=== PATIENT | male | born 1955 | race Caucasian/White ===

== ENCOUNTER → 2020-08-27 06:54 | Outpatient (CLI) | payer MEDICARE, BC, SELFPAY ==
[2016-09-07 18:25] VITALS: BMI 40.7
[2020-08-27 07:55] LABS: Absolute Lymphocyte Count 1.19 X10^3/uL (0.83-4.51); Absolute Neutrophil Count 4.3 X10^3/uL (2.0-7.7); Basophil# 0.03 X10^3/uL; Basophil% 0.5 % (0-1); Eosinophil# 0.03 X10^3/uL; Eosinophils% 0.5 % (0-5); Hematocrit 44.3 % (40-54); Hemoglobin 13.6 g/dL (13.0-16.5); Lymphocyte # 1.19 X10^3/ul (0.83-4.51); Lymphocyte % 20.1 % (19-41); Mean Corp Hgb Conc 30.7 g/dL (32-36); Mean Corpuscular Hgb 25.5 pg (27.0-32.0); Mean Platelet Vol. 11.1 fl (6.2-12.0); Monocyte# 0.35 X10^3/uL; Monocyte% 5.9 % (0-10); NRBC Flagged by Analyzer 0 % (0-5); Neutrophil % 72.7 % (47-70); Platelet Count 171 K/mm3 (150-450); RBC Distribution Width CV 12.8 % (11.6-14.6); RBC Distribution Width SD 38.5 fl (35.1-43.9); Red Blood Count 5.34 M/mm3 (4.6-6.2); White Blood Count 5.9 K/mm3 (4.4-11.0)
[2020-08-27 08:26] LABS: ALB/GLOB Ratio 1.2 RATIO (0.9-2.4); AST(SGOT) 9 U/L (15-37); Alanine Aminotransfer ALT/SGPT 16 U/L (16-61); Albumin, Serum 3.9 g/dL (3.2-5.0); Alkaline Phosphatase 77 U/L (45-117); Anion Gap 7 (5-15); BUN 17 mg/dL (7-18); BUN/Creat Ratio 16.5 RATIO (10-20); Chloride 105 mmol/L (98-107); Cholesterol 110 mg/dL (200); Creatinine, Serum 1.03 mg/dL (0.70-1.30); EST Glomerular Filtration Rate 76 mL/min (>60); Est Glom Filt Rate - Afr Amer 93 mL/min (>60); Globulin 3.2 g/dL (2.2-4.2); Glucose 122 mg/dL (74-106); High Density Lipoprotein 56 mg/dL; Potassium 3.9 mmol/L (3.5-5.1); Protein, Total 7.1 g/dL (6.4-8.2); Sodium Level 141 mmol/L (136-145); Thyroid Stim Hormone (TSH) 1.92 uIU/mL (0.358-3.74); Triglycerides 84 mg/dL; Very Low Density Lipoprotein 17 mg/dL (5-40)
[2020-08-27 08:30] LABS: Hemoglobin A1c 5.4 % (3.8-5.6)
[2020-08-27 08:34] LABS: Vitamin B12 717 pg/mL (211-911)
[2020-08-27 09:27] LABS: Microalbumin,Random Urine 9.8 mg/L (NO RANGE EST.); Microalbumin:Creatinine Ratio 6.5 mg/g CRE (<30 mg/g CRE)
== END ==
PROVIDERS: PCP Family Medicine; Referring Provider Family Medicine; Visit Provider Family Medicine
DX: E11.9 Type 2 diabetes mellitus without complications (principal); E78.5 Hyperlipidemia, unspecified; I10 Essential (primary) hypertension; D51.8 Other vitamin B12 deficiency anemias; Z12.5 Encounter for screening for malignant neoplasm of prostate; Z51.81 Encounter for therapeutic drug level monitoring
CPT/HCPCS: 36415; 80053; 80061; 82043; 82570; 82607; 83036; 84153; 84443; 85025; G0103

== ENCOUNTER → 2022-08-12 | Outpatient (CLI) | payer MEDICARE, BC, SELFPAY ==
[2022-08-12 13:01] LABS: Absolute Lymphocyte Count 1.17 X10^3/uL (0.83-4.51); Absolute Neutrophil Count 5.2 X10^3/uL (2.0-7.7); Basophil# 0.02 X10^3/uL; Basophil% 0.3 % (0-1); Eosinophil# 0.03 X10^3/uL; Eosinophils% 0.4 % (0-5); Hematocrit 44.9 % (40-54); Hemoglobin 14.9 g/dL (13.0-16.5); Lymphocyte # 1.17 X10^3/ul (0.83-4.51); Lymphocyte % 17.2 % (19-41); Mean Corp Hgb Conc 33.2 g/dL (32-36); Mean Corpuscular Hgb 28.7 pg (27.0-32.0); Mean Corpuscular Volume 86.3 fL (80-94); Mean Platelet Vol. 12.1 fl (6.2-12.0); Monocyte% 5.9 % (0-10); NRBC Flagged by Analyzer 0 % (0-5); Neutrophil # 5.16 X10^3/uL (2.7-7.7); Neutrophil % 75.8 % (47-70); Platelet Count 158 K/mm3 (150-450); RBC Distribution Width CV 12.8 % (11.6-14.6); RBC Distribution Width SD 39.8 fl (35.1-43.9); White Blood Count 6.8 K/mm3 (4.4-11.0)
[2022-08-12 13:33] LABS: ALB/GLOB Ratio 1.1 RATIO (0.9-2.4); AST(SGOT) 14 U/L (15-37); Alanine Aminotransfer ALT/SGPT 27 U/L (16-61); Alkaline Phosphatase 89 U/L (45-117); Anion Gap 5 (5-15); BUN 17 mg/dL (7-18); BUN/Creat Ratio 17.1 RATIO (10-20); Chloride 105 mmol/L (98-107); Cholesterol 104 mg/dL (200); EST Glomerular Filtration Rate 79 mL/min (>60); Est Glom Filt Rate - Afr Amer 96 mL/min (>60); Globulin 3.6 g/dL (2.2-4.2); Glucose 136 mg/dL (74-106); High Density Lipoprotein 44 mg/dL; Iron 72 ug/dL (65-175); PSA,Total - Annual Screen 5.16 ng/mL (0.00-4.00); Potassium 3.6 mmol/L (3.5-5.1); Protein, Total 7.6 g/dL (6.4-8.2); Sodium Level 137 mmol/L (136-145); Triglycerides 123 mg/dL; Very Low Density Lipoprotein 25 mg/dL (5-40)
[2022-08-12 13:34] LABS: Vitamin B12 936 pg/mL (211-911)
[2022-08-12 13:39] LABS: Hemoglobin A1c 6.3 % (3.8-5.6)
[2022-08-12 14:06] LABS: Microalbumin,Random Urine 7.6 mg/L (NO RANGE EST.); Microalbumin:Creatinine Ratio 7.1 mg/g CRE (<30 mg/g CRE)
== END | disposition home or self-care (01) ==
LOC: BFHLAB 08:59
PROVIDERS: PCP Family Medicine; Referring Provider Family Medicine; Visit Provider Family Medicine
DX: E11.9 Type 2 diabetes mellitus without complications (principal); E78.5 Hyperlipidemia, unspecified; Z12.5 Encounter for screening for malignant neoplasm of prostate; D50.9 Iron deficiency anemia, unspecified; E53.8 Deficiency of other specified B group vitamins
CPT/HCPCS: 36415; 80053; 80061; 82043; 82570; 82607; 83036; 83540; 84153; 85025; G0103

== ENCOUNTER → 2023-02-16 | Outpatient (CLI) | payer MEDICARE, BC, SELFPAY ==
[2023-02-16 12:34] LABS: PSA,Total- Diagnostic 7.18 ng/mL (0.0-4.0)
== END | disposition home or self-care (01) ==
LOC: BFHLAB 08:18
PROVIDERS: PCP Family Medicine; Referring Provider Family Medicine; Visit Provider Family Medicine
DX: R97.20 Elevated prostate specific antigen [PSA] (principal); E11.9 Type 2 diabetes mellitus without complications
CPT/HCPCS: 36415; 83036; 84153

== ENCOUNTER → 2024-07-11 | Outpatient (CLI) | payer MEDICARE, BC, SELFPAY ==
[2024-07-11 12:45] LABS: Absolute Lymphocyte Count 0.86 X10^3/uL (0.83-4.51); Absolute Neutrophil Count 4.1 X10^3/uL (2.0-7.7); Basophil# 0.04 X10^3/uL; Basophil% 0.7 % (0-1); Eosinophil# 0.03 X10^3/uL; Eosinophils% 0.6 % (0-5); Hematocrit 40.2 % (40-54); Hemoglobin 11.8 g/dL (13.0-16.5); Lymphocyte # 0.86 X10^3/ul (0.83-4.51); Mean Corp Hgb Conc 29.4 g/dL (32-36); Mean Corpuscular Hgb 21.8 pg (27.0-32.0); Mean Corpuscular Volume 74.3 fL (80-94); Mean Platelet Vol. 10.7 fl (6.2-12.0); Monocyte# 0.28 X10^3/uL; Monocyte% 5.2 % (0-10); NRBC Flagged by Analyzer 0 % (0-5); Neutrophil # 4.14 X10^3/uL (2.7-7.7); Neutrophil % 77.1 % (47-70); Platelet Count 172 K/mm3 (150-450); RBC Distribution Width CV 16.2 % (11.6-14.6); RBC Distribution Width SD 43.2 fl (35.1-43.9); Red Blood Count 5.41 M/mm3 (4.6-6.2); White Blood Count 5.4 K/mm3 (4.4-11.0)
[2024-07-11 15:52] LABS: Microalbumin,Random Urine 74.9 mg/L (NO RANGE EST.)
[2024-07-11 23:35] LABS: Cholesterol 109 mg/dL (<=200); High Density Lipoprotein 44 mg/dL; Low Density Lipoprotein Calc. 42 mg/dL; PSA,Total - Annual Screen 6.48 ng/mL (0.02-4.00); Triglycerides 115 mg/dL; Very Low Density Lipoprotein 23 mg/dL (5-40); cholesterol:hdl ratio screen 2.47
[2024-07-11 23:41] LABS: ALB/GLOB Ratio 1.8 RATIO (0.9-2.4); AST(SGOT) 16 U/L (<=37); Alanine Aminotransfer ALT/SGPT 12 U/L (<=46); Albumin, Serum 4.4 g/dL (3.4-4.8); Alkaline Phosphatase 71 U/L (40-129); Anion Gap 11 (5-15); BUN 14 mg/dL (4-19); BUN/Creat Ratio 14.4 RATIO (10-20); Calcium,Total 9.4 mg/dL (7.6-11.0); Carbon Dioxide 23.3 mmol/L (21.0-32.0); Chloride 107 mmol/L (98-108); Creatinine, Serum 0.94 mg/dL (0.70-1.20); EST Glomerular Filtration Rate 87 (>60); Globulin 2.5 g/dL (2.2-4.2); Glucose 156 mg/dL (70-99); Potassium 4.5 mmol/L (3.3-5.1); Protein, Total 6.8 g/dL (5.9-8.4); Sodium Level 141 mmol/L (133-145); Total Bilirubin 0.36 mg/dL (0.00-1.30)
[2024-07-12 12:22] LABS: Hemoglobin A1c 6.6 % (<=5.6)
[2024-10-06 07:55] LABS: Microalbumin:Creatinine Ratio 32.7 mg/g CRE
== END | disposition home or self-care (01) ==
LOC: BFHLAB 08:02
PROVIDERS: PCP Family Medicine; Visit Provider Family Medicine
DX: E11.9 Type 2 diabetes mellitus without complications (principal); E78.5 Hyperlipidemia, unspecified; Z12.5 Encounter for screening for malignant neoplasm of prostate
CPT/HCPCS: 36415; 80053; 80061; 82043; 82570; 83036; 84153; 85025; G0103

== ENCOUNTER → 2025-02-25 | Outpatient (CLI) | payer MEDICARE, BC, SELFPAY ==
--- NOTE | 2025-02-25 | CYSPIN_PTH ---
PATIENT: ROM AGUIRRE LOC: [facility] U#:[id number] AGE/SX: 70/M ROOM: RE02/25/[address]: Dr. Carly Olvera DO : 1955 BED: DIS: 02/25/2025 SPEC #: [id number] RECD: 02/25/25 10:00 STATUS: DAYO MITCH #: [id number] KAYLEIGH: 02/25/25 00:[address]: Carly Olvera DEPT: CYTOLOGY RECD BY: Aron Ruvalcaba Tissues: A - Urine Procedures: Pap Stain (control) Special Stain Group II Cytospin Fluid HEADER OPERATION: Not noted PRE-OP DIAGNOSIS: Hematuria, hematospermia TISSUE SUBMITTED: A- Urine for cytology - voided DIAGNOSIS CYTOLOGY A. Urine, voided (cytospin): - Negative for high grade urothelial carcinoma. - Acute inflammation and bacteria present. CYTOLOGY STUDY Slides are reviewed. CYTOLOGY GROSS A. Received is 50 ml of hazy-yellow fluid labeled with the patient's name and and designated per the requisition as "urine." Submitted for cytology preparation. Mr 02/27/2025 CPT: 12568
--- OUTSIDE RECORDS SUMMARY | 2025-02-25 10:29 | XMS RPT_ITS | CCD ---
Author Organization [facility] Care Team Providers Care Clothes Shaker Name Role Phone Unavailable Primary Care Provider UnavailCODY Menjivar Attending Unavailable CODY GRAHAM Attending Unavailable Carly Olvera DO Primary Care Provider [phone] CODY GRAHAM Referring Unavailable CARLY OLVERA Primary Care Unavailable Dr. Carly Olvera DO Primary Care Provider Dr. Carly Olvera DO Attending Provider [phone] Carly Olvera Primary Care Unavailable MalysCarly Attending Unavailable MalysCarly Primary Care Unavailable MalysCarly Attending Unavailable MalysCarly Referring Unavailable MalysCarly Attending Unavailable MalysCarly Primary Care Unavailable Medications Current Medications Medication Drug Class(es) Dates Sig (Normalized) Sig (Original) acetaminophen 325 mg / HYDROcodone bitartrate 5 mg oral tablet (1 source) Opioid Agonist Start: 06-09-2023 take 1 tablet by mouth every six hours for pain HYDROcodone-aceta minophen ([place]) 5-325 mg tablet Indications: Elevated PSA Take 1 tablet by mouth every 6 hours if needed for severe pain (7 - 10). 20 tablet 0 06/09/2023 Active Start: 06-09-2023 take 1 tablet by jamal th every six hours for pain HYDROcodone-acetaminophen ([place]) 5-325 mg tablet Indications: Elevated PSA Take 1 tablet by mouth every 6 hours if needed for severe pain (7 - 10). 20 tablet 0 06/09/2023 Active calcium chloride 0.0014 meq/ml / potassium chloride 0.004 meq/ml / sodium chloride 0.103 meq/ml / sodium lactate 0.028 meq/ml injectable solution (1 source) Start: 06-09-2023 lactated Ringer's infusion ciprofloxacin 500 mg oral tablet (1 source) Quinolone Antimicrobial Start: 05-13-2023 End: 05-16-2023 take 1 tablet by mouth twice daily ciprofloxacin (Cipro) 500 mg tablet Indications: Elevated PSA Take 1 tablet (500 mg) by mouth 2 times a day for 3 days. 6 tablet 0 05/13/2023 05/16/2023 Active lisinopril 40 mg oral tablet (7 sources) Angiotensin Converting Enzyme Inhibitor Start: 09-07-2016 take 1 tablet by mouth once daily lisinopril 40 mg tablet Take 1 tablet (40 mg) by mouth once daily. 0 03/14/2023 Active metFORMIN hydrochloride 500 mg oral tablet (7 sources) Biguanide Start: 09-07-2016 take 1 tablet by mouth twice daily metFORMIN (Glucophage) 500 mg tablet Take 1 tablet (500 mg) by mouth 2 times a day. 0 03/16/2023 Active simvastatin 10 mg oral tablet (7 sources) HMG-CoA Reductase Inhibitor Start: 03-14-2023 take 1 tablet by mouth once daily at bedtime simvastatin (Zocor) 10 mg tablet Take 1 tablet (10 mg) by mouth once daily at bedtime. 0 03/14/2023 Active Start: 09-07-2016 take 1 tablet by jamal once daily Simvastatin 5 MG tablet Active 5 mg PO DAILY September 07, 2016 12:00am Completed/Discontinued Medications Medication Drug Class(es) Dates Sig (Normalized) Sig (Original) dexamethasone phosphate 10 mg/ml injectable solution (1 source) Corticosteroid Start: 06-09-2023 End: 06-09-2023 dexAMETHasone (Decadron) injection 5 mg Start: 06-09-2023 End: 06-09-2023 dexAMETHasone (Decadron) inj ection 5 mg gadoterate meglumine (Dotarem) 0.5 mmol/mL contrast injection 20 mL (1 source) Start: 04-27-2023 End: 04-27-2023 gadoterate meglumine (Dotarem) 0.5 mmol/mL contrast injection 20 mL glimepiride 4 mg oral tablet (3 sources) Sulfonylurea Start: 09-07-2016 End: 09-12-2023 take 1 tablet by mouth once daily Glimepiride 4 MG tablet Discontinued 4 mg PO DAILY September 07, 2016 12:00am September 12, 2023 9:58am 5 ml midazolam 1 mg/ml injection (1 source) Benzodiazepine Start: 06-09-2023 End: 06-09-2023 midazolam (Versed) injection 2 mg 2 ml ondansetron 2 mg/ml injection (1 source) Serotonin-3 Receptor Antagonist Start: 06-09-2023 End: 06-09-2023 ondansetron (Zofran) injection 4 mg Start: 06-09-2023 End: 06-09-2023 ondansetron (Zofran) injecti on 4 mg Problems Active Problems Problem Classification Problem Date Documented Da te Episodic/Chronic Diabetes mellitus without complication (2 sources) Type 2 diabetes mellitus without complications; Translations: [Type 2 diabetes mellitus without complications] Onset: 03-14-2024 Chronic Disorders of lipid metabolism (1 source) Hyperlipidemia, unspecified; Translations: [Hyperlipidemia, unspecified] Onset: 03-14-2024 Chronic Genitourinary symptoms and ill-defined conditions (8 sources) Nocturia; Translations: [Nocturia] Onset: 04-22-2023 04-22-2023 Episodic Hyperplasia of prostate (8 sources) Benign prostatic hyperplasia; Translations: [Benign prostatic hyperplasia without lower urinary tract symptoms] Onset: 04-22-2023 04-22-2023 Chronic Other ear and sense organ disorders (1 source) Impacted cerumen; Translations: [Impacted cerumen, left ear] 09-12-2023 Episodic Past or Other Problems Problem Classification Problem Date Documented Da te Episodic/Chronic Other screening for suspected conditions (not mental disorders or infectious disease) (13 sources) Raised prostate specific antigen; Translations: [Elevated prostate specific antigen [PSA]] Onset: 04-22-2023 04-22-2023 Episodic Unclassified (4 sources) Onset: 04-22-2023 04-22-2023 Results Test Name Value Interpretation Reference Range Facility Microalb:Creat Ratio,Random URon 10-06-2024 MALB:CREAT 32.7 mg/g CRE [facility] Comment on above: Result Comment: AMENDED REPORT 10/06/24 [id number] MALB:CREAT previously reported as: 327.1 mg/g CRE Performed By: #### L 100.0100, L502.0250, L501.9910, L500.4050, L501.9985, L500.4100 #### [facility] [address] [place], [place], [id number] Hemoglobin A1con 07-12-2024 HbA1c (Bld) [Mass fraction] 6.6 % Normal <=5.6 [facility] Comment on above: Performed By: #### L 100.0100, L502.0250, L501.9910, L500.4050, L501.9985, L500.4100 #### [facility] [address] [place], [place], [id number] Absolute neutrophil countOrd ered By: Carly Olvera on 07-11-2024 Neutrophils (Bld) [#/Vol] 4.1 10*3/uL 2.0-7.7 [facility] Albumin DL <= 20 mg/L (U) [M ass/Vol]Ordered By: Carly Olvera on 07-11-2024 Urine Random Microalbumin 74.9 mg/L NO RANGE EST. [facility] Anion gap in Serum or Plasma Ordered By: Carly Olvera on 07-11-2024 Anion gap [Moles/Vol] 11 mmol/L 5-15 [facility] BUN/creatinine ratioOrdered By: Carly Olvera on 07-11-2024 Urea nitrogen/Creatinine [Mass ratio] 14.4 mg/mg 10-20 [facility] Basophil percentageOrdered B y: Carly Olvera on 07-11-2024 Basophils/100 WBC (Bld) 0.7 % 0-1 [facility] Bilirubin, totalOrdered By: Carly Olvera on 07-11-2024 Bilirubin [Mass/Vol] 0.36 mg/dL 0.00-1.30 [facility] CBC W/Diff, Automatedon 06-19 Absolute Lymph 0.86 X10 3/uL Normal 0.83-4.51 [facility] Comment on above: Performed By: #### L 100.0100, L502.0250, L501.9910, L500.4050, L501.9985, L500.4100 #### [facility] [address] [place], [address] Absolute Neut 4.1 X10 3/uL Normal 2.0-7.7 [facility] Comment on above: Performed By: #### L 100.0100, L502.0250, L501.9910, L500.4050, L501.9985, L500.4100 #### [facility] [address] [place], [address] Basophils/100 WBC (Bld) 0.7 % Normal 0-1 [facility] Comment on above: Performed By: #### L 100.0100, L502.0250, L501.9910, L500.4050, L501.9985, L500.4100 #### [facility] [address] [place], [address] Eosinophils/100 WBC (Bld) 0.6 % Normal 0-5 [facility] Comment on above: Performed By: #### L 100.0100, L502.0250, L501.9910, L500.4050, L501.9985, L500.4100 #### [facility] [address] [place], [address] Erythrocyte distribution width (RBC) [Ratio] 16.2 % High 11.6-14.6 [facility] Comment on above: Performed By: #### L 100.0100, L502.0250, L501.9910, L500.4050, L501.9985, L500.4100 #### [facility] [address] [place], [address] Hematocrit (Bld) [Volume fraction] 40.2 % Normal 40-54 [facility] Comment on above: Performed By: #### L 100.0100, L502.0250, L501.9910, L500.4050, L501.9985, L500.4100 #### [facility] [address] [place], [address] Hemoglobin (Bld) [Mass/Vol] 11.8 g/dL Low 13.0-16.5 [facility] Comment on above: Performed By: #### L 100.0100, L502.0250, L501.9910, L500.4050, L501.9985, L500.4100 #### [facility] [address] [place], [address] IG% 0.400 Normal 0.0-0.9 [facility] Comment on above: Result Comment: IG% - Immature Granulocytes (promyelocytes, myelocytes and metamyelocytes) > 1% indicates that a LEFT SHIFT is Present. Performed By: #### L 100.0100, L502.0250, L501.9910, L500.4050, L501.9985, L500.4100 #### [facility] [address] [place], [address] Lymphocytes/100 WBC (Bld) 16.0 % Low 19-41 [facility] Comment on above: Performed By: #### L 100.0100, L502.0250, L501.9910, L500.4050, L501.9985, L500.4100 #### [facility] [address] [place], [address] MCH (RBC) [Entitic mass] 21.8 pg Low 27.0-32.0 [facility] Comment on above: Performed By: #### L 100.0100, L502.0250, L501.9910, L500.4050, L501.9985, L500.4100 #### [facility] [address] [place], [address] MCHC (RBC) [Mass/Vol] 29.4 g/dL Low 32-36 [facility] Comment on above: Performed By: #### L 100.0100, L502.0250, L501.9910, L500.4050, L501.9985, L500.4100 #### [facility] [address] [place], [address] MCV (RBC) [Entitic vol] 74.3 fL Low 80-94 [facility] Comment on above: Performed By: #### L 100.0100, L502.0250, L501.9910, L500.4050, L501.9985, L500.4100 #### [facility] [address] [place], [address] Monocytes/100 WBC (Bld) 5.2 % Normal 0-10 [facility] Comment on above: Performed By: #### L 100.0100, L502.0250, L501.9910, L500.4050, L501.9985, L500.4100 #### [facility] [address] [place], [address] Neutrophils/100 WBC (Bld) 77.1 % High 47-70 [facility] Comment on above: Performed By: #### L 100.0100, L502.0250, L501.9910, L500.4050, L501.9985, L500.4100 #### [facility] [address] [place], [address] Nucleated RBC (Bld) [#/Vol] 0 10*3/uL Normal 0-5 [facility] Comment on above: Performed By: #### L 100.0100, L502.0250, L501.9910, L500.4050, L501.9985, L500.4100 #### [facility] [address] [place], [address] Platelet mean volume (Bld) [Entitic vol] 10.7 fL Normal 6.2-12.0 [facility] Comment on above: Performed By: #### L 100.0100, L502.0250, L501.9910, L500.4050, L501.9985, L500.4100 #### [facility] [address] [place], [address] Platelets (Bld) [#/Vol] 172 10*3/uL Normal 150-450 [facility] Comment on above: Performed By: #### L 100.0100, L502.0250, L501.9910, L500.4050, L501.9985, L500.4100 #### [facility] [address] [place], [address] RBC (Bld) [#/Vol] 5.41 10*6/uL Normal 4.6-6.2 [facility] Comment on above: Performed By: #### L 100.0100, L502.0250, L501.9910, L500.4050, L501.9985, L500.4100 #### [facility] [address] [place], [address] RDW SD 43.2 fl Normal 35.1-43.9 [facility] Comment on above: Performed By: #### L 100.0100, L502.0250, L501.9910, L500.4050, L501.9985, L500.4100 #### [facility] [address] [place], [address] WBC (Bld) [#/Vol] 5.4 10*3/uL Normal 4.4-11.0 [facility] Comment on above: Performed By: #### L 100.0100, L502.0250, L501.9910, L500.4050, L501.9985, L500.4100 #### [facility] [address] [place], [address] Calculated very low density lipoprotein (VLDL) cholesterol measurementOrdered By: Carly Olvera on 07-11-2024 VLDL Cholesterol 23 mg/dL 5-40 [facility] Carbon dioxide, total [Moles /volume] in Central venous bloodOrdered By: Carlytati Olvera on 07-11-2024 CO2 [Moles/Vol] 23.3 mmol/L 21.0-32.0 [facility] Chloride assayOrdered By: Evelina padilla May on 07-11-2024 Chloride [Moles/Vol] 107 mmol/L 98-108 [facility] Comprehensive Metabolic Prof ilon 07-11-2024 Albumin [Mass/Vol] 4.4 g/dL Normal 3.4-4.8 [facility] Comment on above: Performed By: #### L 100.0100, L502.0250, L501.9910, L500.4050, L501.9985, L500.4100 #### [facility] [address] [place], [address] Albumin/Globulin [Mass ratio] 1.8 {ratio} Normal 0.9-2.4 [facility] Comment on above: Performed By: #### L 100.0100, L502.0250, L501.9910, L500.4050, L501.9985, L500.4100 #### [facility] [address] [place], [address] ALK PHOS 71 U/L Normal 40-129 [facility] Comment on above: Performed By: #### L 100.0100, L502.0250, L501.9910, L500.4050, L501.9985, L500.4100 #### [facility] [address] [place], [address] ALT [Catalytic activity/Vol] 12 U/L Normal <=46 [facility] Comment on above: Performed By: #### L 100.0100, L502.0250, L501.9910, L500.4050, L501.9985, L500.4100 #### [facility] [address] [place], [address] AST [Catalytic activity/Vol] 16 U/L Normal <=37 [facility] Comment on above: Performed By: #### L 100.0100, L502.0250, L501.9910, L500.4050, L501.9985, L500.4100 #### [facility] [address] [place], [address] Bilirubin [Mass/Vol] 0.36 mg/dL Normal 0.00-1.30 [facility] Comment on above: Performed By: #### L 100.0100, L502.0250, L501.9910, L500.4050, L501.9985, L500.4100 #### [facility] [address] [place], [address] BUN/CRE 14.4 RATIO Normal 10-20 [facility] Comment on above: Performed By: #### L 100.0100, L502.0250, L501.9910, L500.4050, L501.9985, L500.4100 #### [facility] [address] [place], [address] Calcium [Mass/Vol] 9.4 mg/dL Normal 7.6-11.0 [facility] Comment on above: Performed By: #### L 100.0100, L502.0250, L501.9910, L500.4050, L501.9985, L500.4100 #### [facility] [address] [place], [address] Chloride [Moles/Vol] 107 mmol/L Normal 98-108 [facility] Comment on above: Performed By: #### L 100.0100, L502.0250, L501.9910, L500.4050, L501.9985, L500.4100 #### [facility] [address] [place], [address] CO2 [Moles/Vol] 23.3 mmol/L Normal 21.0-32.0 [facility] Comment on above: Performed By: #### L 100.0100, L502.0250, L501.9910, L500.4050, L501.9985, L500.4100 #### [facility] [address] [place], [address] Creatinine [Mass/Vol] 0.94 mg/dL Normal 0.70-1.20 [facility] Comment on above: Performed By: #### L 100.0100, L502.0250, L501.9910, L500.4050, L501.9985, L500.4100 #### [facility] [address] [place], [address] GAP 11 Normal 5-15 [facility] Comment on above: Performed By: #### L 100.0100, L502.0250, L501.9910, L500.4050, L501.9985, L500.4100 #### [facility] [address] [place], [address] GFR/1.73 sq M.predicted among non-blacks MDRD (S/P/Bld) [Vol rate/Area] 87 mL/min/{1.73_m2} Normal >60 [facility] Comment on above: Result Comment: mL/m in/1.73m2 CKD-EPI Creatinine Equation (2020) Performed By: #### L 100.0100, L502.0250, L501.9910, L500.4050, L501.9985, L500.4100 #### [facility] [address] [place], [address] Globulin (S) [Mass/Vol] 2.5 g/dL Normal 2.2-4.2 [facility] Comment on above: Performed By: #### L 100.0100, L502.0250, L501.9910, L500.4050, L501.9985, L500.4100 #### [facility] [address] [place], [address] Glucose [Mass/Vol] 156 mg/dL High 70-99 [facility] Comment on above: Performed By: #### L 100.0100, L502.0250, L501.9910, L500.4050, L501.9985, L500.4100 #### [facility] [address] [place], [address] Potassium [Moles/Vol] 4.5 mmol/L Normal 3.3-5.1 [facility] Comment on above: Performed By: #### L 100.0100, L502.0250, L501.9910, L500.4050, L501.9985, L500.4100 #### [facility] [address] [place], [address] Sodium [Moles/Vol] 141 mmol/L Normal 133-145 [facility] Comment on above: Performed By: #### L 100.0100, L502.0250, L501.9910, L500.4050, L501.9985, L500.4100 #### [facility] [address] [place], [address] T PROT 6.8 g/dL Normal 5.9-8.4 [facility] Comment on above: Performed By: #### L 100.0100, L502.0250, L501.9910, L500.4050, L501.9985, L500.4100 #### [facility] [address] [place], [address] Urea nitrogen [Mass/Vol] 14 mg/dL Normal 4-19 [facility] Comment on above: Performed By: #### L 100.0100, L502.0250, L501.9910, L500.4050, L501.9985, L500.4100 #### [facility] [address] [place], [address] Creatinine Unsp time (U) [Ma ss/Vol]Ordered By: Carly Olvera on 07-11-2024 Creatinine (U) [Mass/Vol] 229.00 mg/dL 39.00-259.00 [facility] Eosinophil percentageOrdered By: Carly Olvera on 07-11-2024 Eosinophils/100 WBC (Bld) 0.6 % 0-5 [facility] Erythrocyte distribution wid th ratioOrdered By: Carly Olvera on 07-11-2024 Erythrocyte distribution width (RBC) [Ratio] 16.2 % High 11.6-14.6 [facility] Erythrocyte distribution wid th standard deviationOrdered By: Carly Olvera on 07-11-2024 Erythrocyte distribution width (RBC) [Entitic vol] 43.2 fL 35.1-43.9 [facility] GFR/1.73 sq M.predicted dmitri g non-blacks MDRD (S/P/Bld) [Vol rate/Area]Ordered By: Carly Olvera on 07-11-2024 Estimated GFR (MDRD) Non-Af Amer 87 >60 [facility] Comment on above: mL/min/1.73m2 CKD-EP I Creatinine Equation (2020) Hematocrit Auto (Bld) [Volum e fraction]Ordered By: Carly Olvera on 07-11-2024 Hematocrit (Bld) [Volume fraction] 40.2 % 40-54 [facility] Hemoglobin A1c percentageOrd ered By: Carly Olvera on 07-11-2024 HbA1c (Bld) [Mass fraction] 6.6 % >5.7 [facility] Hemoglobin measurementOrdere d By: Carly Olvera on 07-11-2024 Hemoglobin (Bld) [Mass/Vol] 11.8 g/dL Low 13.0-16.5 [facility] Immature granulocytes/100 WB C Auto (Bld)Ordered By: Carly Olvera on 07-11-2024 Immature granulocytes/100 WBC (Bld) 0.400 % 0.0-0.9 [facility] Comment on above: IG% - Immature Granu locytes (promyelocytes, myelocytes and metamyelocytes) > 1% indicates that a LEFT SHIFT is Present. LDL calc ser/plasOrdered By: Carly Olvera on 07-11-2024 LDL Cholesterol, Calculated 42 mg/dL [facility] Comment on above: Lbhydjixvx=428-574 m g/dL & Higher Jqtz=882 mg/dL or greater Laboratory - Chemistry and C hemistry - challengeOrdered By: Carly Olvera on 07-11-2024 AST [Catalytic activity/Vol] 16 U/L <38 [facility] Lipid Profileon 07-11-2024 CHOL:HDL 2.47 Normal [facility] Comment on above: Performed By: #### L 100.0100, L502.0250, L501.9910, L500.4050, L501.9985, L500.4100 #### [facility] [address] [place], [address] Cholesterol [Mass/Vol] 109 mg/dL Normal <=200 [facility] Comment on above: Result Comment: Chol esterol level, Desirable <200 mg/dL Borderline high cholesterol 200-239 mg/dL High cholesterol >=240 mg/dL Recommendations of the NCEP Adult Treatment Panel for the following risk-cutoff thresholds for the [place] population. Performed By: #### L 100.0100, L502.0250, L501.9910, L500.4050, L501.9985, L500.4100 #### [facility] [address] [place], [address] Cholesterol in HDL [Mass/Vol] 44 mg/dL Normal [facility] Comment on above: Result Comment: Jenny onal Cholesterol Education Program (NCEP) guidelines: <40 mg/dL: Low HDL-cholesterol (major risk factor for CHD) >= 60 mg/dL: High HDL-cholesterol (negative risk factor for CHD) HDL-cholesterol is affected by a number of factors, e.g. smoking, exercise, hormones, sex and age. Performed By: #### L 100.0100, L502.0250, L501.9910, L500.4050, L501.9985, L500.4100 #### [facility] [address] [place], [address] Cholesterol in LDL [Mass/Vol] 42 mg/dL Normal [facility] Comment on above: Result Comment: Bord dhrhhi=797-981 mg/dL Higher Oary=616 mg/dL or greater Performed By: #### L 100.0100, L502.0250, L501.9910, L500.4050, L501.9985, L500.4100 #### [facility] [address] [place], [address] Cholesterol in VLDL [Mass/Vol] 23 mg/dL Normal 5-40 [facility] Comment on above: Performed By: #### L 100.0100, L502.0250, L501.9910, L500.4050, L501.9985, L500.4100 #### [facility] [address] [place], [address] Triglyceride [Mass/Vol] 115 mg/dL Normal [facility] Comment on above: Result Comment: The drugs N-Acetylcysteine and Metamizole may falsely depress this assay. Normal range: <150 mg/dL Borderline High: 150-199 mg/dL High: 200-499 mg/dL Very High: >500 mg/dL Performed By: #### L 100.0100, L502.0250, L501.9910, L500.4050, L501.9985, L500.4100 #### [facility] [address] [place], [address] Lymphocytes Auto (Unsp spec) [#/Vol]Ordered By: Carly Olvera on 07-11-2024 Lymphocytes (Bld) [#/Vol] 0.86 10*3/uL 0.83-4.51 [facility] Lymphocytes/100 WBC Auto (Un sp spec)Ordered By: Carly Olvera on 07-11-2024 Lymphocytes/100 WBC (Bld) 16.0 % Low 19-41 [facility] MCV (mean corpuscular volume ) determinationOrdered By: Carly Olvera on 07-11-2024 MCV (RBC) [Entitic vol] 74.3 fL Low 80-94 [facility] Mean corpuscular hemoglobin (MCH) determinationOrdered By: Carly Olvera on 07-11-2024 MCH (RBC) [Entitic mass] 21.8 pg Low 27.0-32.0 [facility] Mean corpuscular hemoglobin concentration (MCHC) determinationOrdered By: Carly Olvera on 07-11-2024 MCHC (RBC) [Mass/Vol] 29.4 g/dL Low 32-36 [facility] Mean platelet volume determi nationOrdered By: Carly Olvera on 07-11-2024 Platelet mean volume (Bld) [Entitic vol] 10.7 fL 6.2-12.0 [facility] Microalbumin/creat ratio urO rdered By: Carly Olvera on 07-11-2024 Urine Microalbumin/Creatinine Ratio 327.1 mg/g CRE [facility] Monocyte percentageOrdered B y: Carly Olvera on 07-11-2024 Monocytes/100 WBC (Bld) 5.2 % 0-10 [facility] Neutrophil percentageOrdered By: Carly Olvera on 07-11-2024 Neutrophils/100 WBC (Bld) 77.1 % High 47-70 [facility] Nucleated red blood cell per centageOrdered By: Carly Olvera on 07-11-2024 Nucleated RBC/100 WBC (Bld) [Ratio] 0 % 0-5 [facility] PSA, total screeningOrdered By: Carly Olvera on 07-11-2024 Prostate Specific Antigen Screen 6.48 ng/mL High 0.02-4.00 [facility] Comment on above: This test was perfor med using the [employer] tPSA method. Measured values of a patient sample can vary depending on the testing procedure used. PSA values determined on patient samples by different testing procedures cannot be used interchangeably. If there is a change in PSA assays while monitoring therapy, sequential testing should be performed to confirm baseline values. PSA,Total - Annual Screenon 07-11-2024 PSA,TOT SCREEN 6.48 ng/mL High 0.02-4.00 [facility] Comment on above: Result Comment: This test was performed using the [employer] tPSA method. Measured values of a patient??sample can vary depending on the testing procedure used. PSA values determined on patient samples by different testing procedures cannot be used interchangeably. If there is a change in PSA assays while monitoring therapy, sequential testing should be performed to confirm baseline values. Performed By: #### L 100.0100, L502.0250, L501.9910, L500.4050, L501.9985, L500.4100 #### [facility] [address] [place], [address] Platelet countOrdered By: Evelina Olvera on 07-11-2024 Platelets (Bld) [#/Vol] 172 10*3/uL 150-450 [facility] Potassium (Unsp spec) [Mass/ Vol]Ordered By: Carly Olvera on 07-11-2024 Potassium [Moles/Vol] 4.5 mmol/L 3.3-5.1 [facility] RBC Auto (Bld) [#/Vol]Ordere d By: Carly Olvera on 07-11-2024 RBC (Bld) [#/Vol] 5.41 10*6/uL 4.6-6.2 [facility] Screening total cholesterol/ high density lipoprotein (HDL) cholesterol ratioOrdered By: Carly Olvera on 07-11-2024 Cholesterol.total/Choles terol in HDL [Mass ratio] 2.47 {ratio} [facility] Serum creatinine measurement (mass/volume)Ordered By: Carly Olvera on 07-11-2024 Creatinine [Mass/Vol] 0.94 mg/dL 0.70-1.20 [facility] Serum globulin measurementOr dered By: Carly Olvera on 07-11-2024 Globulin (S) [Mass/Vol] 2.5 g/dL 2.2-4.2 [facility] Serum glucose measurement (m ass/volume)Ordered By: Carly Olvera on 07-11-2024 Glucose [Mass/Vol] 156 mg/dL High 70-99 [facility] Serum or plasma alanine gaytan otransferase (ALT) measurementOrdered By: Carly Olvera on 07-11-2024 ALT [Catalytic activity/Vol] 12 U/L <47 [facility] Serum or plasma albumin nereyda urement (mass/volume)Ordered By: Carly Olvera on 07-11-2024 Albumin [Mass/Vol] 4.4 g/dL 3.4-4.8 [facility] Serum or plasma albumin/glob ulin mass ratioOrdered By: Carly Olvera on 07-11-2024 Albumin/Globulin [Mass ratio] 1.8 {ratio} 0.9-2.4 [facility] Serum or plasma alkaline sherwin sphatase measurementOrdered By: Carly Olvera on 07-11-2024 ALP [Catalytic activity/Vol] 71 U/L 40-129 [facility] Serum or plasma calcium nereyda urement (mass/volume)Ordered By: Carly Olvera on 07-11-2024 Calcium [Mass/Vol] 9.4 mg/dL 7.6-11.0 [facility] Serum or plasma cholesterol in HDL measurement (mass/volume)Ordered By: Carly Olvera on 07-11-2024 Cholesterol in HDL [Mass/Vol] 44 mg/dL >40 [facility] Comment on above: National Cholesterol Education Program (NCEP) guidelines:<40 mg/dL: Low HDL-cholesterol (major risk factor for CHD)>= 60 mg/dL: High HDL-cholesterol (negative risk factor for CHD)HDL-cholesterol is affected by a number of factors, e.g. smoking, exercise, hormones, sex and age. Serum or plasma cholesterol measurement (mass/volume)Ordered By: Carly Olvera on 07-11-2024 Cholesterol [Mass/Vol] 109 mg/dL <201 [facility] Comment on above: Cholesterol level, D esirable <200 mg/dLBorderline high cholesterol 200-239 mg/dLHigh cholesterol >=240 mg/dLRecommendations of the NCEP Adult Treatment Panel for the following risk-cutoff thresholds for the [place] population. Serum or plasma urea nitroge n measurement (mass/volume)Ordered By: Carly Olvera on 07-11-2024 Urea nitrogen [Mass/Vol] 14 mg/dL 4-19 [facility] Sodium levelOrdered By: Carly Olvera on 07-11-2024 Sodium [Moles/Vol] 141 mmol/L 133-145 [facility] Total proteinOrdered By: Francisca Olvera on 07-11-2024 Protein [Mass/Vol] 6.8 g/dL 5.9-8.4 [facility] Triglycerides measurementOrd ered By: Carly Olvera on 07-11-2024 Triglyceride [Mass/Vol] 115 mg/dL <199 [facility] Comment on above: The drugs N-Acetylcy steine and Metamizole may falsely depress this assay. Normal range: <150 mg/dLBorderline High: 150-199 mg/dLHigh: 200-499 mg/dLVery High: >500 mg/dL White blood cell (WBC) count Ordered By: Carly Olvera on 07-11-2024 WBC (Bld) [#/Vol] 5.4 10*3/uL 4.4-11.0 [facility] Glucose Test strip manual (B ld) [Mass/Vol]on 06-09-2023 Glucose [Mass/Vol] 147 mg/dL High 74 - 99 mg/dL [facility] Interpretation and review of laboratory results [facility] Glucose [Mass/Vol] 147 mg/dL High 74-99 [facility] Comment on above: Performed By: #### 2 [id number] #### PHILLIPS MARIAMA ([id number]) [facility] ([facility]) [address] [place] [address] Surgical pathology studyon 0 06-09-2023 Surgical pathology study Pathology report.total SEE COMMENT Surgical Pathology Case: [id number] Authorizing Provider: Cody Graham MD Collected: 06/09/2023 0750 Ordering Location: [facility] Received: 06/09/2023 1521 Center OR Pathologist: Addison Hernandez MD Specimens: A) - PROSTATE NEEDLE BIOPSY RIGHT B) - PROSTATE BIOPSY TARGETED NICKI, AREA OF INTEREST#1 C) - PROSTATE NEEDLE BIOPSY LEFT Path report.final diagnosis SEE COMMENT A., B., C. PROSTATE, RIGHT LOBE, AREA OF INTEREST #1, LEFT LOBE, NEEDLE BIOPSIES: --PROSTATE TISSUE WITH PATCHY ACUTE AND CHRONIC INFLAMMATION. --NO MALIGNANCY IS SEEN. Laboratory comment By the signature on this report, the individual or group listed as making the Final Interpretation/Diag nosis certifies that they have reviewed this case. Path report.relevant Hx SEE COMMENT Pre-op diagnosis: Elevated PSA [R97.20] Path report.gross observation SEE COMMENT A: Received in formalin, labeled with the patient's name and hospital number and "right prostate", are multiple cylindrical fragments of blue-gates soft tissue ranging from 1.2 cm to 2.0 cm in length by less than 0.1 cm in diameter. The specimen is submitted in toto in two cassette. RCC B: Received in formalin, labeled with the patient's name and hospital number and "area of interest #1", are multiple cylindrical fragments of blue-gates soft tissue ranging from 0.3 cm to 2.9 cm in length by less than 0.1 cm in diameter. The specimen is submitted in toto in one cassette. RCC C: Received in formalin, labeled with the patient's name and hospital number and "left prostate needle biopsy", are multiple cylindrical fragments of gates soft tissue ranging from 1.0 cm to 2.5 cm in length by less than 0.1 cm in diameter. The specimen is submitted in toto in two cassettes. RCC [facility] Comment on above: Order Comment: Pre-o p diagnosis: Elevated PSA [R97.20] MR PROSTATE NICKI BOUNDARIESon 04-27-2023 MR PROSTATE NICKI BOUNDARIES Interpreted By: Colby Chin, and Socrates Barahona STUDY: MR PROSTATE NICKI BOUNDARIES; 04/27/2023 10:47 am INDICATION: Signs/Symptoms:elev ated PSA. Most recent PSA 7.18 per clinical documentation COMPARISON: None. ACCESSION NUMBER(S): [id number] ORDERING CLINICIAN: CODY GRAHAM TECHNIQUE: Multiplanar MRI of the pelvis was obtained including axial, sagittal and coronal T2 weighted SSFSE, axial and sagittal T2 FSE, axial DWI, pre and post gadolinium dynamic T1 GRE sequences. Multiparametric analysis was performed. 20 mL Dotarem was administered intravenously without immediate complications. 3D post-processing was performed using Abril, on an independent workstation, for the purpose of enabling fusion with ultrasound, and provided it for review. FINDINGS: PROSTATE VOLUME: The prostate measures 5.6 cm x 5.1 cm x 6.2 cm in [id number], anterior-posterior and craniocaudal dimension. Prostate weight is estimated at 92.71g. PSA density is 0.08 ng/mL/g. PROSTATE PARENCHYMA: There is heterogeneous enlargement of the transition zone, consistent with benign prostatic hyperplasia. There is a T2 hypointense 1.2 cm lesion in the left posterior peripheral zone at the prostate apex with associated DWI hyperintensity and ADC hypointensity. EXTRACAPSULAR EXTENSION: Lesion abuts the capsule without definite gross extracapsular extension. SEMINAL VESICLES: Within normal limits. PELVIC LYMPH NODES: No abnormally enlarged pelvic lymph nodes are identified. PERITONEUM: No free or loculated fluid collections are evident in the pelvis. OTHER ORGANS: Within normal limits. BONES: No focal lesions are noted in the bone. IMPRESSION: 1. PI-RADS 4 lesion in the left posterior peripheral zone at the prostate apex. Lesion abuts the capsule without gross extracapsular extension. PI-RADS 4 - High (clinically significant cancer is likely to be present). I personally reviewed the images/study and I agree with the resident Jun Crowell's findings as stated. This study was interpreted at [place], [place]. MACRO: None Signed by: Colby Chin 04/30/2023 7:24 PM Dictation workstation: [id number] [facility] No Panel InformationOrdered By: Carly Olvera on 02-16-2023 Prostate Specific Antigen Total 7.18 ng/mL 0.0-4.0 [facility] Comment on above: This test was perfor med using the TPSA assay method for the[employer] chemistry system. Values obtained with differentassay methods cannot be used interchangably.When changing PSA assays in the course of monitoring apatient, additional sequential testing should be carriedout to confirm baseline values. Whole blood hemoglobin A1c/t otal hemoglobin ratio (mass fraction)Ordered By: Carly Olvera on 02-16-2023 HbA1c (Bld) [Mass fraction] 6.0 % 3.8-5.6 [facility] Comment on above: Normal < 5.7 % Predi abetic 5.7 - 6.4 % Diabetic >or= 6.5 % Please note range changes. Absolute lymphocyte countOrd ered By: Dr. Olvera on 08-12-2022 Lymphocytes Auto (Unsp spec) [#/Vol] 1.17 10*3/uL 0.83-4.51 [facility] Basophil percentageOrdered B y: Dr. Olvera on 08-12-2022 Basophils/100 WBC (Bld) 0.3 % 0-1 [facility] Bilirubin [Mass/Vol] 0.50 mg/dL 0.20-1.00 [facility] Comment on above: For patients on eltr ombopag therapy, use of Dimension [place] TBIL is not recommended. Chloride [Moles/Vol] 105 mmol/L 98-107 [facility] Cholesterol [Mass/Vol] 104 mg/dL <200 [facility] Comment on above: <200 mg/dL Desirable 200-240 mg/dL Borderline >240 mg/dL High Risk Eosinophils/100 WBC (Bld) 0.4 % 0-5 [facility] Glucose [Mass/Vol] 136 mg/dL 74-106 [facility] Comment on above: Fasting Glucose resu lt greater than or equal to 126 mg/dL suggests DIABETES MELLITUS per A.D.A. criteria. Neutrophils (Bld) [#/Vol] 5.2 10*3/uL 2.0-7.7 [facility] Neutrophils/100 WBC (Bld) 75.8 % 47-70 [facility] Potassium [Moles/Vol] 3.6 mmol/L 3.5-5.1 [facility] Protein [Mass/Vol] 7.6 g/dL 6.4-8.2 [facility] Sodium [Moles/Vol] 137 mmol/L 136-145 [facility] Triglyceride [Mass/Vol] 123 mg/dL <199 [facility] Comment on above: The drugs N-Acetylcy steine and Metamizole may falsely depress this assay.Serum Triglycerides Reference Interval Normal <150 mg/dL Borderline high 150 - 199 mg/dL High 200 - 499 mg/dL Very High > or = 500 mg/dL WBC (Bld) [#/Vol] 6.8 10*3/uL 4.4-11.0 [facility] Blood erythrocytes count (nu mber/volume)Ordered By: Dr. Olvera on 08-12-2022 RBC (Bld) [#/Vol] 5.20 10*6/uL 4.6-6.2 [facility] Blood hemoglobin measurement (mass/volume)Ordered By: Dr. Olvera on 08-12-2022 Hemoglobin (Bld) [Mass/Vol] 14.9 g/dL 13.0-16.5 [facility] Blood lymphocytes/100 leukoc ytesOrdered By: Dr. Olvera on 08-12-2022 Lymphocytes/100 WBC (Bld) 17.2 % 19-41 [facility] Blood monocytes/100 leukocyt esOrdered By: Dr. Olvera on 08-12-2022 Monocytes/100 WBC (Bld) 5.9 % 0-10 [facility] Blood platelet mean volumeOr dered By: Dr. Olvera on 08-12-2022 Platelet mean volume (Bld) [Entitic vol] 12.1 fL 6.2-12.0 [facility] Determination of erythrocyte mean corpuscular volume (MCV)Ordered By: Dr. Olvera on 08-12-2022 MCV (RBC) [Entitic vol] 86.3 fL 80-94 [facility] Hematocrit Auto (Bld) [Volum e fraction]Ordered By: Dr. Olvera on 08-12-2022 Hematocrit (Bld) [Volume fraction] 44.9 % 40-54 [facility] Iron measurement (mass/mass) Ordered By: Dr. Olvera on 08-12-2022 Iron (Unsp spec) [Mass/Mass] 72 ug/dL 65-175 [facility] - Chemistry and C hemistry - challengeOrdered By: Dr. Olvera on 08-12-2022 ALP [Catalytic activity/Vol] 89 U/L 45-117 [facility] ALT [Catalytic activity/Vol] 27 U/L 16-61 [facility] CO2 [Moles/Vol] 27.0 mmol/L 21.0-32.0 [facility] Cobalamin (Vitamin B12) [Mass/Vol] 936 pg/mL 211-911 [facility] Globulin (S) [Mass/Vol] 3.6 g/dL 2.2-4.2 [facility] Urea nitrogen/Creatinine [Mass ratio] 17.1 mg/mg 10-20 [facility] - Hematology and Cell countsOrdered By: Dr. Olvera on 08-12-2022 Erythrocyte distribution width (RBC) [Entitic vol] 39.8 fL 35.1-43.9 [facility] Erythrocyte distribution width (RBC) [Ratio] 12.8 % 11.6-14.6 [facility] Immature granulocytes/100 WBC (Bld) 0.400 % 0.0-0.9 [facility] Comment on above: IG% - Immature Granu locytes (promyelocytes, myelocytes and metamyelocytes) > 1% indicates that a LEFT SHIFT is Present. MCH (RBC) [Entitic mass] 28.7 pg 27.0-32.0 [facility] Nucleated RBC/100 WBC (Bld) [Ratio] 0 % 0-5 [facility] MCHC Auto (RBC) [Mass/Vol]Or dered By: Dr. Olvera on 08-12-2022 MCHC (RBC) [Mass/Vol] 33.2 g/dL 32-36 [facility] No Panel InformationOrdered By: Dr. Olvera on 08-12-2022 Estimated GFR (MDRD) Amer 96 mL/min >60 [facility] Comment on above: GFR Calc Estimated GFR (MDRD) Non-Af Amer 79 mL/min >60 [facility] Comment on above: Non- GFR Calc Prostate Specific Antigen Screen 5.16 ng/mL 0.00-4.00 [facility] Comment on above: This test was perfor med using the TPSA assay method for the[facility]. Values obtained with differentassay methods cannot be used interchangably.When changing PSA assays in the course of monitoring apatient, additional sequential testing should be carriedout to confirm baseline values. Urine Microalbumin/Creatinine Ratio 7.1 mg/g CRE <30 [facility] Platelets bldOrdered By: Dr. Olvera on 08-12-2022 Platelets (Bld) [#/Vol] 158 10*3/uL 150-450 [facility] Serum or plasma albumin nereyda urement (mass/volume)Ordered By: Dr. Olvera on 08-12-2022 Albumin [Mass/Vol] 4.0 g/dL 3.2-5.0 [facility] Serum or plasma albumin/glob ulin mass ratioOrdered By: Dr. Olvera on 08-12-2022 Albumin/Globulin [Mass ratio] 1.1 {ratio} 0.9-2.4 [facility] Serum or plasma calcium nereyda urement (mass/volume)Ordered By: Dr. Olvera on 08-12-2022 Calcium [Mass/Vol] 9.0 mg/dL 8.5-10.1 [facility] Serum or plasma cholesterol in HDL measurement (mass/volume)Ordered By: Dr. Olvera on 08-12-2022 Cholesterol in HDL [Mass/Vol] 44 mg/dL >40 [facility] Comment on above: The drugs N-Acetylcy steine and Metamizole may falsely depress this assay. Reference Range HDL <40 mg/dL Low HDL Cholesterol HDL >or= 60 mg/dL High HDL Cholesterol Serum or plasma cholesterol in VLDL measurement (mass/volume)Ordered By: Dr. Olvera on 08-12-2022 Cholesterol in VLDL [Mass/Vol] 25 mg/dL 5-40 [facility] Serum or plasma creatinine m easurement (mass/volume)Ordered By: Dr. Olvera on 08-12-2022 Creatinine [Mass/Vol] 1.00 mg/dL 0.70-1.30 [facility] Comment on above: The validity of the calculated GFR & GFRAA in patients over 70 years has not been determined. Clinical correlation is essential. Serum or plasma low density lipoprotein (LDL) cholesterol measurement (mass/volume)Ordered By: Dr. Olvera on 08-12-2022 Cholesterol in LDL [Mass/Vol] 35 mg/dL 0-130 [facility] Serum or plasma urea nitroge n measurement (mass/volume)Ordered By: Dr. Olvera on 08-12-2022 Urea nitrogen [Mass/Vol] 17 mg/dL 7-18 [facility] Thin prep Papanicolaou smear with manual screeningOrdered By: Dr. Olvera on 08-12-2022 Thin prep Papanicolaou smear with manual screening 14 U/L 15-37 [facility] Thin prep Papanicolaou smear with manual screening 5 5-15 [facility] Thin prep Papanicolaou smear with manual screening 7.6 mg/L NO RANGE EST. [facility] Urine creatinine measurement (mass/volume)Ordered By: Dr. Olvera on 08-12-2022 Creatinine (U) [Mass/Vol] 106.00 mg/dL NO RANGE EST. [facility] Whole blood hemoglobin A1c/t otal hemoglobin ratio (mass fraction)Ordered By: Dr. Olvera on 08-12-2022 HbA1c (Bld) [Mass fraction] 6.3 % 3.8-5.6 [facility] Comment on above: Normal < 5.7 % Predi abetic 5.7 - 6.4 % Diabetic >or= 6.5 % Please note range changes. CNNURSEon 08-03-2020 [facility] Nurse Visit (FAMPWS) ---- ROM SINHA ([id number]) 1955 M Date Time Provider Department 08/03/20 9:00 AM [place] [facility] During your visit today, we recorded the following information about you: Yessy Patterson LPN 08/03/2020 9:01 AM Signed Patient presents for B-12 injection. Denies any problems at this time. Patient instructed on any SE of medication, verbalized understanding and agreed to proceed with treatment. Tolerated injection well. Yessy Patterson LPN Referring Provider: FIDEL GO III [[id number]] Allergies As of Date: 08/03/2020 (No Known Allergies) Date Reviewed: 08/03/2020 Reviewed by: Yessy Patterson LPN - Fully Assessed Reason for Visit: B-12 Injection [247] Primary Visit Diagnosis:Vitamin B12 deficiency [E53.8] Prescriptions as of 08/03/2020 Sig: CALCIUM CITRATE 250 MG TABLET Take by mouth. TRULICITY 1.5 MG/0.5 ML SUBCU* Inject 1.5 mg subcutaneously * METFORMIN 500 MG TABLET Take 1 tablet by mouth twice * LISINOPRIL 40 MG TABLET Take 1 tablet by mouth once d* SIMVASTATIN 20 MG TABLET Take 1 tablet by mouth daily * FERROUS SULFATE 325 MG (65 MG* TAKE ONE TABLET BY MOUTH TWIC* Problem List As Of Date 08/03/2020 Noted Resolved Unspecified hemorrhoids without mention of comp* 03/20/2015 BENIGN HYPERTENSION [I10] Hyperlipidemia with target LDL less than 100 [E*09/10/2010 Morbid obesity [E66.01] 11/26/2012 Iron deficiency anemia [D50.9] 07/25/2017 09/15/2018 Controlled type 2 diabetes mellitus without com*09/15/2018 Impingement syndrome of shoulder region [M75.40]12/08/2019 Benign prostatic hyperplasia with urinary frequ*12/08/2019 Vitamin B12 deficiency [E53.8] 12/08/2019 Microcytic anemia [D50.9] 12/08/2019 Encounter Status:Closed by YESSY PATTERSON LPN on 08/03/20 [facility] CNNURSEon 06-26-2020 [facility] Nurse Visit (FAMPWS) ---- ROM SINHA ([id number]) 1955 M Date Time Provider Department 06/26/20 1:30 PM [place] [facility] During your visit today, we recorded the following information about you: Yessy Patterson LPN 06/26/2020 1:37 PM Signed Patient presents for B-12 injection. Denies any problems at this time. Patient instructed on any SE of medication, verbalized understanding and agreed to proceed with treatment. Tolerated injection well. Yessy Patterson LPN Referring Provider: FIDEL GO III [[id number]] Allergies As of Date: 06/26/2020 (No Known Allergies) Date Reviewed: 06/26/2020 Reviewed by: Yessy Patterson LPN - Fully Assessed Reason for Visit: B-12 Injection [247] Primary Visit Diagnosis:Vitamin B12 deficiency [E53.8] Prescriptions as of 06/26/2020 Sig: CALCIUM CITRATE 250 MG TABLET Take by mouth. TRULICITY 1.5 MG/0.5 ML SUBCU* Inject 1.5 mg subcutaneously * METFORMIN 500 MG TABLET Take 1 tablet by mouth twice * LISINOPRIL 40 MG TABLET Take 1 tablet by mouth once d* SIMVASTATIN 20 MG TABLET Take 1 tablet by mouth daily * FERROUS SULFATE 325 MG (65 MG* TAKE ONE TABLET BY MOUTH TWIC* Problem List As Of Date 06/26/2020 Noted Resolved Unspecified hemorrhoids without mention of comp* 03/20/2015 More... BENIGN HYPERTENSION [I10] Hyperlipidemia with target LDL less than 100 [E*09/10/2010 Morbid obesity [E66.01] 11/26/2012 Iron deficiency anemia [D50.9] 07/25/2017 09/15/2018 Controlled type 2 diabetes mellitus without com*09/15/2018 Impingement syndrome of shoulder region [M75.40]12/08/2019 Benign prostatic hyperplasia with urinary frequ*12/08/2019 Vitamin B12 deficiency [E53.8] 12/08/2019 Microcytic anemia [D50.9] 12/08/2019 Encounter Status:Closed by [facility]ESSY PATTERSON LPN [facility] Nurse Visit (FAMPWS) ---- ROM SINHA ([id number]) 1955 M Date Time Provider Department 05/14/20 9:00 AM [place] NURSE FAMPWS During your visit today, we recorded the following information about you: Yessy Patterson LPN 05/14/2020 8:55 AM Signed Patient presents for B-12 injection. Denies any problems at this time. Patient instructed on any SE of medication, verbalized understanding and agreed to proceed with treatment. Tolerated injection well. Yessy Patterson LPN Referring Provider: FIDEL GO III [[id number]] Allergies As of Date: 05/14/2020 (No Known Allergies) Date Reviewed: 03/19/2020 Reviewed by: Yessy Patterson LPN - Fully Assessed Reason for Visit: B-12 Injection [247] Primary Visit Diagnosis:Vitamin B12 deficiency [E53.8] Prescriptions as of 05/14/2020 Sig: CALCIUM CITRATE 250 MG TABLET Take by mouth. TRULICITY 1.5 MG/0.5 ML SUBCU* Inject 1.5 mg subcutaneously * METFORMIN 500 MG TABLET Take 1 tablet by mouth twice * LISINOPRIL 40 MG TABLET Take 1 tablet by mouth once d* SIMVASTATIN 20 MG TABLET Take 1 tablet by mouth daily * FERROUS SULFATE 325 MG (65 MG* TAKE ONE TABLET BY MOUTH TWIC* Problem List As Of Date 05/14/2020 Noted Resolved Unspecified hemorrhoids without mention of comp* 03/20/2015 More... BENIGN HYPERTENSION [I10] Hyperlipidemia with target LDL less than 100 [E*09/10/2010 Morbid obesity [E66.01] 11/26/2012 Iron deficiency anemia [D50.9] 07/25/2017 09/15/2018 Controlled type 2 diabetes mellitus without com*09/15/2018 Impingement syndrome of shoulder region [M75.40]12/08/2019 Benign prostatic hyperplasia with urinary frequ*12/08/2019 Vitamin B12 deficiency [E53.8] 12/08/2019 Microcytic anemia [D50.9] 12/08/2019 Encounter Status:Closed by YESSY PATTERSON LPN on 05/14/20 Normal [facility] Vital Signs Date Time Vital Sign Value Performing Clinician Facility 06-09-2023 08:45-0500 Diastolic blood pressure 64 mm[Hg] Cody Graham MD Work Phone: [facility] 06-09-2023 08:45-0500 Heart rate 67 /min Cody Graham MD Work Phone: [facility] 06-09-2023 08:45-0500 Respiratory rate 14 /min Cody Graham MD Work Phone: [facility] 06-09-2023 08:45-0500 SaO2% (BldA) [Mass fraction] 96 % Cody Graham MD Work Phone: [facility] 06-09-2023 08:45-0500 Systolic blood pressure 130 mm[Hg] Cody Graham MD Work Phone: [facility] 06-09-2023 07:57-0500 Body temperature 98.2 [degF] Cody Graham MD Work Phone: [phone] [place] [address] 06-09-2023 06:29-0500 Body height 173 cm Cody Graham MD Work Phone: [phone] [place] [address] 06-09-2023 06:29-0500 Body mass index (BMI) [Ratio] 32.51 kg/m2 Cody Graham MD Work Phone: 4([phone])[phone] [place] [address] 06-09-2023 06:29-0500 Body weight 97.3 kg Cody Graham MD Work Phone: 9(248)[phone] [place] [address] 05-13-2023 10:53-0500 Body mass index (BMI) [Ratio] 34.46 kg/m2 Cody Graham MD Work Phone: [phone] [address] 05-13-2023 10:53-0500 Body weight 99.79 kg Cody Graham MD Work Phone: 7(780)[phone] [place] [address] 05-13-2023 10:53-0500 Respiratory rate 16 /min Cody Graham MD Work Phone: 4(335)[phone] [place] [address] 04-22-2023 09:28-0500 Body height 170.2 cm Cody Graham MD Work Phone: [phone] [address] 04-22-2023 09:28-0500 Body mass index (BMI) [Ratio] 35.24 kg/m2 Cody Graham MD Work Phone: [phone] [address] 04-22-2023 09:28-0500 Body weight 102.06 kg Cody Graham MD Work Phone: [phone] [place] [address] 04-22-2023 09:28-0500 Respiratory rate 16 /min Cody Graham MD Work Phone: [phone] [place] [address] Encounters Encounter Date Encounter Type Care Provider Facility Start: 10-20-2024 ambulatory Carly Olvera Facility:[facility] Start: 07-11-2024 End: 07-11-[address] Carly Olvera DO Work Phone: [facility] Work Phone: Start: 07-11-2024 End: 07-11-[address] Carly Olvera DO [facility] Start: 07-11-2024 End: 07-11-2024 [facility]ulatory [facility] Facility[facility] Start: 03-14-2024 ambulatory [facility] Facility:[facility] Start: 06-09-2023 End: 06-09-2023 Subsequent hospital visit by physician Cody Graham MD Work Phone: [facility] [place] Comment on above: Elevated PSA Start: 05-13-2023 End: 05-13-2023 ambulatory [facility] Start: 05-13-2023 End: 05-13-2023 Office outpatient visit 25 minutes Cody Graham MD Work Phone: [facility] Comment on above: Elevated PSA; BPH without obstruction/lower urinary tract symptoms; Nocturia Start: 04-27-2023 End: 04-27-2023 Subsequent hospital visit by physician [facility] Comment on above: Elevated PSA Start: 04-27-2023 End: 04-27-2023 ambulatory [facility] Start: 04-22-2023 End: 04-22-2023 ambulatory [facility] Start: 04-22-2023 End: 04-22-2023 Office outpatient new 45 minutes Cody Graham MD Work Phone: [facility] Comment on above: Elevated PSA (Primar y Dx); BPH without obstruction/lower urinary tract symptoms; Nocturia Start: 02-16-2023 End: 02-16-2023 ambulatory [facility] Work Phone: Start: 02-16-2023 End: 02-16-2023 Patient encounter procedure [facility] Start: 08-12-2022 End: 08-12-2022 ambulatory [facility] Work Phone: Start: 08-12-2022 End: 08-12-2022 Patient encounter procedure [facility] Procedures Date Procedure Procedure Detail Performing Clinician Start: 06-09-2023 Glucose quantitative blood xcpt reagent strip Cody Graham MD Work Phone: Start: 04-27-2023 MR PROSTATE NICKI BOUNDARIES CODY GRAHAM Start: 04-27-2023 Mri pelvis w/o & w/contrast material Cody Graham MD Work Phone: Start: 12-30-2019 Colonoscopy Cody Graham MD Work Phone: Plan of Treatment Date Care Activity Detail Author Start: 12-29-2029 Screening for malign ant neoplasm of colon [facility] Start: 06-09-2026 Diabetes mellitus screening Diabetes Screening [facility] Start: 01-17-2026 DTaP/Tdap/Td Vaccine s (2 - Td or Tdap) DTaP/Tdap/Td Vaccines (2 - Td or Tdap) [facility] Start: 01-17-2026 DTaP/Tdap/Td Vaccine s (3 - Td or Tdap) DTaP/Tdap/Td Vaccines (3 - Td or Tdap) [facility] Start: 05-13-2023 End: 05-13-2023 Patient encounter procedure 05/13/2023 11:00 AM EST Office Visit [facility] [address] [phone] Cody Graham MD [address] [place] [address] [facility] Start: 04-27-2023 End: 04-27-2023 Patient encounter procedure 04/27/2023 9:15 AM EST Appointment [id number] [place] [id number] [facility] Start: 04-22-2023 End: 04-22-2024 Creatinine [Mass/volume] in Serum or Plasma Creatinine, Serum Lab Routine Elevated PSA Expected: 04/22/2023 (Approximate), Expires: 04/22/2024 [facility] Work Phone: Comment on above: Expected: 04/22/2023 (Approximate), Expires: 04/22/2024 Start: 04-22-2023 End: 04-22-2024 MR Prostate MR prostate with nicki boundaries Imaging Routine Elevated PSA Expected: 04/22/2023 (Approximate), Expires: 04/22/2024 [facility] Service Area Work Phone: Comment on above: Expected: 04/22/2023 (Approximate), Expires: 04/22/2024 Start: 03-19-2023 COVID-19 Vaccine (5 - Moderna series) COVID-19 Vaccine (5 - Moderna series) [facility] Start: 03-19-2023 COVID-19 Vaccine (2022- season) COVID-19 Vaccine ( season) [facility] Start: 11-25-2022 Diabetes mellitus screening Diabetes Screening [facility] Start: 07-14-2020 Pneumococcal Vaccine : 65+ Years (2 - PCV) Pneumococcal Vaccine: 65+ Years (2 - PCV) [facility] Start: 10-27-2018 Zoster Vaccines (2 o f 2) Zoster Vaccines (2 of 2) [facility] Start: 10-27-2018 Zoster Vaccines (3 o f 3) Zoster Vaccines (3 of 3) [facility] Start: 2018 Abdominal aortic aneurysm screening Abdominal Aortic Aneurysm (AAA) Screening [facility] Start: 1971 Hepatitis C screening Hepatitis C [facility] Start: 1955 Lipid panel Lipid Panel [facility] Start: 1955 Medicare Annual Wellness Visit Medicare Annual Wellness Visit (AWV) [facility] Start: 1955 Screening for malign ant neoplasm of colon [facility] MR Prostate MR prostate with nicki boundaries Imaging Routine Elevated PSA 04/27/2023 10:47 AM EST [facility] Service Area Work Phone: End: 06-09-2023 Pulse oximetry, spot Pulse oximetry, spot Respiratory Care Routine Once for 1 Occurrences starting 06/09/2023 until 06/09/2023 [facility] Service Area Work Phone: Comment on above: Once for 1 Occurrenc es starting 06/09/2023 until 06/09/2023 Surgical pathology study Surgical Pathology Exam Pathology and Cytology Timed Elevated PSA Release Upon Ordering for 1 Occurrences starting 06/09/2023 [facility] Work Phone: Comment on above: Release Upon Orderin g for 1 Occurrences starting 06/09/2023 Payers Date Payer Category Payer Self-pay [id number] 2017 Medicare MEDICARE MEDICAR E PART A AND B [id number] 2017-Present [address] [place] [address] [id number] 2017 Unknown JERMAINE DEAN MEDICARE SELECT SUPPLEMENT [id number] 2017-Present [address] [place] [address] [id number] 2017 Medicare [id number] 2017 Unknown [id number] 1955 Unknown [id number] 1955 Unknown [id number] 4 1955 Unknown [id number] Self-pay SELF PAY INSURANCE [id number] Unknown [facility] [id number] Unknown [id number] Unknown [id number] Unknown [id number] Social History Date Type Detail Facility Start: 09-07-2016 Tobacco smoking stat us NHIS Unknown if ever smoked [facility] Start: 1955 Sex Assigned At Male W [facility] Start: 04-22-2023 [facility] Work Phone: Start: 04-22-2023 End: 05-13-2023 Tobacco use and exposure Smokeless tobacco non-user [facility] Work Phone: Start: 04-22-2023 End: 06-03-2023 History of Social function [facility] Work Phone: Start: 04-22-2023 End: 06-03-2023 Tobacco use panel [facility] Work Phone: Start: 1955 Sex Assigned At Not on file U [facility] Work Phone: Start: 04-17-2023 End: 06-09-2023 Exposure to SARS-CoV-2 (event) Not sure [facility] Start: 09-07-2016 End: 05-13-2023 Tobacco smoking status NHIS Ex-smoker [facility] Work Phone: Start: 04-20-1976 End: 04-20-1980 History of tobacco use Current smoker [facility] Work Phone: Start: 04-20-1976 End: 04-20-1980 History of tobacco use Cigarette Smoker [facility] Work Phone: History of tobacco use Pipe Smoker [facility] Work Phone: Start: 05-13-2023 End: 06-03-2023 Alcohol intake Current drinker of alcohol (finding) [facility] Work Phone: Start: 05-13-2023 Alcohol Comment Less than once a mon th [facility] Work Phone: Start: 07-16-2024 Sex Male (finding) [facility] Clinical Notes 05-14-2020 to 06-09-2023 Discharge InstructionsOp Note - Cody Graham MD - 06/09/2023 7:47 AM ESTOp Note - Cody Graham MD - 06/09/2023 7:47 AM ESTPreprocedure Instructions - Lindsey Tucker RN - 06/03/2023 8:16 AM EST Note Date & Type Note Facility 06-09-2023 Hospital Discharg e instructions Khushi Sherman RN - 06/09/2023 8:31 AM EST See printed instructions. documented in this encounter [facility] Work Phone: 06-09-2023 Note Formatting of this n ote is different from the original. Biopsy Prostate, Ultrasonography Transrectal Prostate, Biopsy Prostate with Navigation Operative Note Date: 06/09/2023 OR Location: [facility] OR Name: Rom Sinha, : 1955, Age: 68 y.o., , Sex: male Diagnosis Pre-op Diagnosis * Elevated PSA [R97.20] Post-op Diagnosis * Elevated PSA [R97.20] Procedures Biopsy Prostate 89508 - AL PROSTATE NEEDLE BIOPSY ANY APPROACH Ultrasonography Transrectal Prostate 49835 - G US TRANSRECTAL Biopsy Prostate with Navigation 61690 - [facility] US GUIDANCE NEEDLE PLACEMENT IMG S&I Surgeons * Cody Graham - Primary Resident/Fellow/Other Pecan Sheller: Surgeon(s) and Role: Procedure Summary Anesthesia: Monitor Anesthesia Care ASA: II Anesthesia Staff: Anesthesiologist: Yoel Dang MD Estimated Blood Loss: 0mL Intra-op Medications: Administrations occurring from 0730 to 0745 on 06/09/23: * No intraprocedure medications in log * Anesthesia Record Intraprocedure I/O Totals None Specimen: ID Type Source Tests Collected by Time 1 : PROSTATE NEEDLE BIOPSY RIGHT Tissue PROSTATE NEEDLE BIOPSY RIGHT SURGICAL PATHOLOGY EXAM Cody Graham MD 06/09/2023 0750 2 : AREA OF INTEREST#1 Tissue PROSTATE BIOPSY TARGETED NICKI SURGICAL PATHOLOGY EXAM Cody Graham MD 06/09/2023 0751 3 : PROSTATE NEEDLE BIOPSY LEFT Tissue PROSTATE NEEDLE BIOPSY LEFT SURGICAL PATHOLOGY EXAM Cody Graham MD 06/09/2023 075 Staff: Sports Statistician: Kd Shay RN; Jamila De La Vega RN Scrub Person: Yessy Rider; Bill Lester RN Indications: Rom Sinha is an 68 y.o. male who is having surgery for Elevated PSA [R97.20]. The patient was seen in the preoperative area. The risks, benefits, complications, treatment options, non-operative alternatives, expected recovery and outcomes were discussed with the patient. The possibilities of reaction to medication, pulmonary aspiration, injury to surrounding structures, bleeding, recurrent infection, the need for additional procedures, failure to diagnose a condition, and creating a complication requiring transfusion or operation were discussed with the patient. The patient concurred with the proposed plan, giving informed consent. The site of surgery was properly noted/marked if necessary per policy. The patient has been actively warmed in preoperative area. Pre Op dx: Elevated PSA and Abnormal MRI of the prostate Post Op Dx: SAME Procedure: MRI Guided Fusion Bx of the prostate Physician: BARRY Anesthesia: MAC Estimated Blood Loss: Minimal Complications: NONE Indications and Consent: Patient present for prostate Biopsy of lesion found on MRI. After the risks,, benefits, and indications were explained he consented to the procedure. PROCEDURE: After adequate sedation was obtained the ultrasound probe was inserted into the rectum. An ultrasound sweep of the prostate was performed. These images were then fused with the previously obtained MRI images. The lesion(s) were identified. Multiple targeted biopsies were obtained . I also performed standard Sextant biopsies of the right and left lobe of the prostate. The patient tolerated the procedure well. Follow up 2 weeks for results Attending Attestation: I was present and scrubbed for the entire procedure. Cody Graham [facility] Work Phone: 06-09-2023 Miscellaneous Notes Biopsy Prostate, Ultrasonography Transrectal Prostate, Biopsy Prostate with Navigation Operative Note Date: 06/09/2023 OR Location: [facility] OR Name: Rom Sinha, : 1955, Age: 68 y.o., , Sex: male Diagnosis Pre-op Diagnosis * Elevated PSA [R97.20] Post-op Diagnosis * Elevated PSA [R97.20] Procedures Biopsy Prostate 87191 - AL PROSTATE NEEDLE BIOPSY ANY APPROACH Ultrasonography Transrectal Prostate 01029 - CHG US TRANSRECTAL Biopsy Prostate with Navigation 27711 - CHG US GUIDANCE NEEDLE PLACEMENT IMG S&I Surgeons * Cody Graham - Primary Resident/Fellow/Other Pecan Sheller: Surgeon(s) and Role: Procedure Summary Anesthesia: Monitor Anesthesia Care ASA: II Anesthesia Staff: Anesthesiologist: Yoel Dang MD Estimated Blood Loss: 0mL Intra-op Medications: Administrations occurring from 0730 to 0745 on 06/09/23: * No intraprocedure medications in log * Anesthesia Record Intraprocedure I/O Totals None Specimen: ID Type Source Tests Collected by Time 1 : PROSTATE NEEDLE BIOPSY RIGHT Tissue PROSTATE NEEDLE BIOPSY RIGHT SURGICAL PATHOLOGY EXAM Cody Graham MD 06/09/2023 0750 2 : AREA OF INTEREST#1 Tissue PROSTATE BIOPSY TARGETED NICKI SURGICAL PATHOLOGY EXAM Cody Graham MD 06/09/2023 0751 3 : PROSTATE NEEDLE BIOPSY LEFT Tissue PROSTATE NEEDLE BIOPSY LEFT SURGICAL PATHOLOGY EXAM Cody Graham MD 06/09/2023 0751 Staff: Sports Statistician: Kd Shay RN; Jamila De La Vega RN Scrub Person: Yessy Rider; Bill Lester RN Indications: Rom Sinha is an 68 y.o. male who is having surgery for Elevated PSA [R97.20]. The patient was seen in the preoperative area. The risks, benefits, complications, treatment options, non-operative alternatives, expected recovery and outcomes were discussed with the patient. The possibilities of reaction to medication, pulmonary aspiration, injury to surrounding structures, bleeding, recurrent infection, the need for additional procedures, failure to diagnose a condition, and creating a complication requiring transfusion or operation were discussed with the patient. The patient concurred with the proposed plan, giving informed consent. The site of surgery was properly noted/marked if necessary per policy. The patient has been actively warmed in preoperative area. Pre Op dx: Elevated PSA and Abnormal MRI of the prostate Post Op Dx: SAME Procedure: MRI Guided Fusion Bx of the prostate Physician: BARRY Anesthesia: MAC Estimated Blood Loss: Minimal Complications: NONE Indications and Consent: Patient present for prostate Biopsy of lesion found on MRI. After the risks,, benefits, and indications were explained he consented to the procedure. PROCEDURE: After adequate sedation was obtained the ultrasound probe was inserted into the rectum. An ultrasound sweep of the prostate was performed. These images were then fused with the previously obtained MRI images. The lesion(s) were identified. Multiple targeted biopsies were obtained . I also performed standard Sextant biopsies of the right and left lobe of the prostate. The patient tolerated the procedure well. Follow up 2 weeks for results Attending Attestation: I was present and scrubbed for the entire procedure. Cody Graham No outpatient medications have been marked as taking for the 06/09/23 encounter (Hospital Encounter). NPO Instructions: Nothing to eat or drink after midnight Additional Instructions: Will need cdl driver home, will receive call day before surgery with arrival time documented in this encounter [facility] Work Phone: 06-09-2023 Attending History and physical note H&P reviewed. The patient was examined and there are no changes to the H&P. Source Note - Cody Graham MD - 05/13/2023 11:00 AM EST Subjective Patient ID: Rom Sinha is a 68 y.o. male. HPI Patient is here for prostate MRI results. MRI showed PI-RAD 4 lesion. Most recent PSA was 7.18 on 02/09. Prior PSA was 5.16 on 08/10. Chronic BPH sx are mild and stable. Denies urgency and frequency. Denies dysuria. Denies hematuria. Nocturia x1. No medication for LUT'S. ED is not an issue. Review of Systems Constitutional: Negative for chills and fever. HENT: Negative. Eyes: Negative. Respiratory: Negative for cough and shortness of breath. Cardiovascular: Negative for chest pain and leg swelling. Gastrointestinal: Negative for nausea. Endocrine: Negative. Genitourinary: Negative for difficulty urinating. Negative except for documented in HPI Allergic/Immunologic: Negative. Neurological: Alert & oriented X 3 Hematological: Denies blood thinners Psychiatric/Behavioral: Negative. Objective Physical Exam Vitals and nursing note reviewed. Cardiovascular: Pulses: Normal pulses. Pulmonary: Effort: Pulmonary effort is normal. Breath sounds: Normal breath sounds. Abdominal: Palpations: Abdomen is soft. Tenderness: There is no abdominal tenderness. Genitourinary: Comments: Kidneys non palpable bilaterally Bladder non palpable or tender Neurological: Mental Status: He is alert. Assessment/Plan Diagnoses and all orders for this visit: Elevated PSA BPH without obstruction/lower urinary tract symptoms Nocturia All available PSA values reviewed, Options discussed. Questions answered. MRI reviewed Pros and cons of prostate biopsy reviewed. Other options discussed. Questions answered Cipro Rx given Diet changes for prostate health discussed and educational information given. Pros/Cons of prostate health supplements discussed. Treatment options for LUTS reviewed Discussed timed voiding. Discussed fluid and caffeine intake Treatment options for ED reviewed. Lifestyle change to help prevent UTIs discussed. Encouraged fluid intake. F/U with MRI guided Bx [facility] Work Phone: 06-09-2023 History and physical note H&P reviewed. The patient was examined and there are no changes to the H&P. Source Note - Cody Graham MD - 05/13/2023 11:00 AM EST Subjective Patient ID: Rom Sinha is a 68 y.o. male. HPI Patient is here for prostate MRI results. MRI showed PI-RAD 4 lesion. Most recent PSA was 7.18 on 02/09. Prior PSA was 5.16 on 08/10. Chronic BPH sx are mild and stable. Denies urgency and frequency. Denies dysuria. Denies hematuria. Nocturia x1. No medication for LUT'S. ED is not an issue. Review of Systems Constitutional: Negative for chills and fever. HENT: Negative. Eyes: Negative. Respiratory: Negative for cough and shortness of breath. Cardiovascular: Negative for chest pain and leg swelling. Gastrointestinal: Negative for nausea. Endocrine: Negative. Genitourinary: Negative for difficulty urinating. Negative except for documented in HPI Allergic/Immunologic: Negative. Neurological: Alert & oriented X 3 Hematological: Denies blood thinners Psychiatric/Behavioral: Negative. Objective Physical Exam Vitals and nursing note reviewed. Cardiovascular: Pulses: Normal pulses. Pulmonary: Effort: Pulmonary effort is normal. Breath sounds: Normal breath sounds. Abdominal: Palpations: Abdomen is soft. Tenderness: There is no abdominal tenderness. Genitourinary: Comments: Kidneys non palpable bilaterally Bladder non palpable or tender Neurological: Mental Status: He is alert. Assessment/Plan Diagnoses and all orders for this visit: Elevated PSA BPH without obstruction/lower urinary tract symptoms Nocturia All available PSA values reviewed, Options discussed. Questions answered. MRI reviewed Pros and cons of prostate biopsy reviewed. Other options discussed. Questions answered Cipro Rx given Diet changes for prostate health discussed and educational information given. Pros/Cons of prostate health supplements discussed. Treatment options for LUTS reviewed Discussed timed voiding. Discussed fluid and caffeine intake Treatment options for ED reviewed. Lifestyle change to help prevent UTIs discussed. Encouraged fluid intake. F/U with MRI guided Bx documented in this encounter [facility] Work Phone: 06-03-2023 Note Formatting of this n ote is different from the original. No outpatient medications have been marked as taking for the 06/09/23 encounter (Hospital Encounter). NPO Instructions: Nothing to eat or drink after midnight Additional Instructions: Will need cdl driver home, will receive call day before surgery with arrival time [facility] Work Phone: 05-13-2023 History of Presen t illness Narrative Subjective Patient ID: Rom Sinha is a 68 y.o. male. HPI Patient is here for prostate MRI results. MRI showed PI-RAD 4 lesion. Most recent PSA was 7.18 on 02/09. Prior PSA was 5.16 on 08/10. Chronic BPH sx are mild and stable. Denies urgency and frequency. Denies dysuria. Denies hematuria. Nocturia x1. No medication for LUT'S. ED is not an issue. Review of Systems Constitutional: Negative for chills and fever. HENT: Negative. Eyes: Negative. Respiratory: Negative for cough and shortness of breath. Cardiovascular: Negative for chest pain and leg swelling. Gastrointestinal: Negative for nausea. Endocrine: Negative. Genitourinary: Negative for difficulty urinating. Negative except for documented in HPI Allergic/Immunologic: Negative. Neurological: Alert & oriented X 3 Hematological: Denies blood thinners Psychiatric/Behavioral: Negative. Objective Physical Exam Vitals and nursing note reviewed. Cardiovascular: Pulses: Normal pulses. Pulmonary: Effort: Pulmonary effort is normal. Breath sounds: Normal breath sounds. Abdominal: Palpations: Abdomen is soft. Tenderness: There is no abdominal tenderness. Genitourinary: Comments: Kidneys non palpable bilaterally Bladder non palpable or tender Neurological: Mental Status: He is alert. Assessment/Plan Diagnoses and all orders for this visit: Elevated PSA BPH without obstruction/lower urinary tract symptoms Nocturia All available PSA values reviewed, Options discussed. Questions answered. MRI reviewed Pros and cons of prostate biopsy reviewed. Other options discussed. Questions answered Cipro Rx given Diet changes for prostate health discussed and educational information given. Pros/Cons of prostate health supplements discussed. Treatment options for LUTS reviewed Discussed timed voiding. Discussed fluid and caffeine intake Treatment options for ED reviewed. Lifestyle change to help prevent UTIs discussed. Encouraged fluid intake. F/U with MRI guided Bx documented in this encounter [facility] Work Phone: 04-22-2023 History of Presen t illness Narrative Subjective Patient ID: Rom Sinha is a 68 y.o. male. HPI Patient is here to established as a new patient for an elevated PSA.. Denies bone pain or weight loss.. Most recent PSA was 7.18 (02/09) Previous PSA Was 5.16 (4).. Chronic BPH with LUTs, sx are mild and stable.. No medications for the prostate.. No hematuria, No dysuria. Nocturia x 1-2, depending on fluid intake. ED is not an issue. Energy level is good Review of Systems Constitutional: Negative for chills and fever. HENT: Negative. Eyes: Glasses Respiratory: Negative for cough and shortness of breath. Cardiovascular: Negative for chest pain and leg swelling. Gastrointestinal: Negative for nausea. Endocrine: Negative. Genitourinary: Negative for difficulty urinating. Negative except for documented in HPI Allergic/Immunologic: Negative. Neurological: Alert & oriented X 3 Hematological: Denies blood thinners Psychiatric/Behavioral: Negative. Objective Physical Exam Vitals and nursing note reviewed. Constitutional: General: He is not in acute distress. Appearance: Normal appearance. Pulmonary: Effort: Pulmonary effort is normal. Abdominal: Tenderness: There is no abdominal tenderness. Genitourinary: Comments: Kidneys non palpable bilaterally Bladder non palpable or tender Scrotum no mass, No hydrocele Epididymis- No spermatocele. Non Tender. Testicles: No mass. Symmetric Urethra: No discharge Penis within normal limits... No lesions Prostate - Slightly Asymmetric, no nodules but slightly firmer Right [place] Seminal Vesicals: No mass. Sphincter tone: normal Neurological: Mental Status: He is alert. Assessment/Plan There are no diagnoses linked to this encounter. All available PSA values reviewed, Options discussed. Questions answered. Pros and cons of prostate biopsy reviewed. Other options discussed. Questions answered MRI ordered Diet changes for prostate health discussed and educational information given. Pros/Cons of prostate health supplements discussed. Treatment options for LUTS reviewed Discussed timed voiding. Discussed fluid and caffeine intake Treatment options for ED reviewed. Lifestyle change to help prevent UTIs discussed. Encouraged fluid intake. F/U after MRI documented in this encounter [facility] Work Phone: 10-03-2020 Note HNO ID: [id number] Author: Rudy Webb Ma Service: ? Author Type: ? Type: Progress Notes Filed: 10/09/2020 2:37 PM Note Text: POPULATION HEALTH NAVIGATION OUTREACH Action/FYI Patient returned call to let me know that he has switched to an outside doctor d/t current pcp retiring soon. PCP field updated. Orders removed since provider did not sign within 7 days and encounter closed. Contact made with patient or family member? YES Pt identified by name and : YES Navigation Signature: Rudy Webb Ma October 03, 2020 3:34 PM [facility] 10-03-2020 Note HNO ID: [id number] Author: Rudy Webb Ma Service: ? Author Type: ? Type: Progress Notes Filed: 10/03/2020 2:24 PM Note Text: POPULATION HEALTH NAVIGATION OUTREACH Action/FYI Left message for patient to call back regarding scheduling/care gaps. Cryoporthart message sent. A1c order sent to PCP for review. Contact made with patient or family member? NO Pt identified by name and : NO Outreach Outcome/Action Unable to reach patient: Left message Kabongohart message sent Reason for Outreach Care Gap or Scheduling/Wellness visits Payer: Payor: MEDICARE / Plan: MEDICARE A AND B / Product Type: Medicare / Care Gap Reviewed:: Annual Wellness visit HBA1C Reminder: Reminder note to check Health Maintenance for items below Health Maintenance items due: ABDOMINAL AORTIC ANEURYSM SCREENING Never done ADVANCE DIRECTIVE DISCUSSION Never done DEPRESSION SCREENING due on 07/21/2018 SHINGRIX VACCINE(3 of 3) due on 10/27/2018 HBA1C due on 05/28/2020 DILATED RETINAL EXAM due on 11/02/2020 Advanced Directives Completed: Have you ever planned for future healthcare decisions with a power of contract attorney, living will, or advance directives? No. Are you interested in a follow-up phone call or visit with a doctor for more information about planning for future health care decisions? No Referrals: N/A Message Sent to Practice: NO Navigation Signature: Rudy Webb Marcelo October 03, 2020 12:39 PM [facility] 10-03-2020 Note Patient Outreach (JONES CALHOUN) ROM SINHA ([id number]) 1955 Date Time Provider Department 10/03/20 JON RUDY MARCELO AKERS During your visit today, we recorded the following information about you: Rudy Webb Marcelo 10/03/2020 2:24 PM Addendum POPULATION HEALTH NAVIGATION OUTREACH Action/FYI Left message for patient to call back regarding scheduling/care gaps. Cryoporthart message sent. A1c order sent to PCP for review. Contact made with patient or family member? NO Pt identified by name and : NO Outreach Outcome/Action Unable to reach patient: Left message MyChart message sent Reason for Outreach Care Gap or Scheduling/Wellness visits Payer: Payor: MEDICARE / Plan: MEDICARE A AND B / Product Type: Medicare / Care Gap Reviewed:: Annual Wellness visit HBA1C Reminder: Reminder note to check Health Maintenance for items below Health Maintenance items due: ABDOMINAL AORTIC ANEURYSM SCREENING Never done ADVANCE DIRECTIVE DISCUSSION Never done DEPRESSION SCREENING due on 07/21/2018 SHINGRIX VACCINE(3 of 3) due on 10/27/2018 HBA1C due on 05/28/2020 DILATED RETINAL EXAM due on 11/02/2020 Advanced Directives Completed: Have you ever planned for future healthcare decisions with a power of contract attorney, living will, or advance directives? No. Are you interested in a follow-up phone call or visit with a doctor for more information about planning for future health care decisions? No Referrals: N/A Message Sent to Practice: NO Navigation Signature: Rudy Hardwick Ma October 03, 2020 12:39 PM Rudy Hardwick Marcelo 10/03/2020 2:24 PM Signed Addended by: JON ROBERTSON RUDY on: 10/03/2020 02:24 PM Modules accepted: Orders Rudy Webb Marcelo 10/09/2020 2:37 PM Addendum POPULATION HEALTH NAVIGATION OUTREACH Action/FYI Patient returned call to let me know that he has switched to an outside doctor d/t current pcp retiring soon. PCP field updated. Orders removed since provider did not sign within 7 days and encounter closed. Contact made with patient or family member? YES Pt identified by name and : YES Navigation Signature: Rudyalvaro Webb Ma October 03, 2020 3:34 PM Rudy Clarkire Marcelo 10/09/2020 2:37 PM Signed Addended by: RUDY WEBB MA on: 10/09/2020 02:37 PM Modules accepted: Orders Allergies As of Date: 10/03/2020 (No Known Allergies) Date Reviewed: 08/03/2020 Reviewed by: Yessy Patterson LPN - Fully Assessed Reason for Visit: Population Health Navigation Outreach [3910] Cmt: ACO Care Gap 1 Primary Visit Diagnosis:Controlled type 2 diabetes mellitus without complication, without long-term current use of insulin (HCC) [E11.9] Prescriptions as of 10/03/2020 Sig: CALCIUM CITRATE 250 MG TABLET Take by mouth. TRULICITY 1.5 MG/0.5 ML SUBCU* Inject 1.5 mg subcutaneously * METFORMIN 500 MG TABLET Take 1 tablet by mouth twice * LISINOPRIL 40 MG TABLET Take 1 tablet by mouth once d* SIMVASTATIN 20 MG TABLET Take 1 tablet by mouth daily * FERROUS SULFATE 325 MG (65 MG* TAKE ONE TABLET BY MOUTH TWIC* Problem List As Of Date 10/03/2020 Noted Resolved Unspecified hemorrhoids without mention of comp* 03/20/2015 BENIGN HYPERTENSION [I10] Hyperlipidemia with target LDL less than 100 [E*09/10/2010 Morbid obesity [E66.01] 11/26/2012 Iron deficiency anemia [D50.9] 07/25/2017 09/15/2018 Controlled type 2 diabetes mellitus without com*09/15/2018 Impingement syndrome of shoulder region [M75.40]12/08/2019 Benign prostatic hyperplasia with urinary frequ*12/08/2019 Vitamin B12 deficiency [E53.8] 12/08/2019 Microcytic anemia [D50.9] 12/08/2019 Encounter Status:Closed by JON MAJOANNRUDY on 10/03/20 [facility] 08-03-2020 Note HNO ID: [id number] Author: Yessy Patterson LPN Service: ? Author Type: ? Type: Progress Notes Filed: 08/03/2020 9:01 AM Note Text: Patient presents for B-12 injection. Denies any problems at this time. Patient instructed on any SE of medication, verbalized understanding and agreed to proceed with treatment. Tolerated injection well. Yessy Patterson LPN [facility] 06-26-2020 Note HNO ID: [id number] Author: Yessy Patterson LPN Service: ? Author Type: ? Type: Progress Notes Filed: 06/26/2020 1:37 PM Note Text: Patient presents for B-12 injection. Denies any problems at this time. Patient instructed on any SE of medication, verbalized understanding and agreed to proceed with treatment. Tolerated injection well. Yessy Patterson LPN [facility] 05-14-2020 Note HNO ID: [id number] Author: Yessy Patterson LPN Service: ? Author Type: ? Type: Progress Notes Filed: 05/14/2020 8:55 AM Note Text: Patient presents for B-12 injection. Denies any problems at this time. Patient instructed on any SE of medication, verbalized understanding and agreed to proceed with treatment. Tolerated injection well. Yessy Patterson LPN [facility] Evaluation note No assessment inform ation [facility] Work Phone: Evaluation note Diagnosis Elevated PSA- Primary Elevated prostate specific antigen (PSA) BPH without obstruction/lower urinary tract symptoms Nocturia documented in this encounter [facility] Work Phone: Evaluation note* Diagnosis Elevated PSA Elevated prostate specific antigen (PSA) documented in this encounter [facility] Work Phone: Evaluation note* Diagnosis Elevated PSA Elevated prostate specific antigen (PSA) BPH without obstruction/lower urinary tract symptoms Nocturia documented in this encounter [facility] Work Phone: Evaluation note* Diagnosis Elevated PSA- Primary Elevated prostate specific antigen (PSA) documented in this encounter [facility] Work Phone: Reason for referral (narrative)No reason for referral [facility] Phone: Summary Purpose Family History No Family History Records FoundNo Family History Records FoundNo Family History Records FoundNo Family History Records Found Advance Directives No Advanced Directives Records Found Advance Directive Response Recorded Date/ Time Living Will No September 07, 2016 6 :57pm Power of Reel System Operator No September 07, 2016 6:57pm Documents on File Type Date Recorded 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 [facility] Power of Atty 06/09/2023 POW ER OF EVENT STAFF Latest Code Status on File Code Status Date Activated Date Inactivated Comments Full Code 06/09/2023 6:44 AM Question Answer Comments Plan of Care: Code Status Discussion Completed Decision Maker: Patient Reason for Referral Specialty Diagnoses / Procedures Referred By Contac t Referred To Contact Radiology Diagnoses Elevated PSA Procedures MR prostate with nicki boundaries Cody Graham MD [address] [place] [address] Referral ID Status Reason Start Date Expiration Date Visits Requested Visits Authorized [id number] Authorized Perform Procedure 04/22/2023 04/21/2024 1 1 Additional Source Comments (unrecognized sect ion and content) No Status Records FoundNo Status Records FoundNo Status Records FoundNo Status Records Found INFORMATION SOURCE (unrecogn ized section and content) DATE CREATED AUTHOR 05/12/2021 [facility] DATE CREATED AUTHOR AUTHOR'S ORGANIZ ATION 05/16/2023 [facility] DATE CREATED AUTHOR AUTHOR'S ORGANIZ ATION 01/10/2024 [facility] DATE CREATED AUTHOR AUTHOR'S ORGANIZ ATION [facility] Care Teams (unrecognized sec tion and content) Team Status: Active Member Role Status Dates Dr. Fidel Go III, MD Family Provider Active Dr. Carly Olvera DO Primary Care Provider Active Team Status: Inactive Member Role Status Dates Dr. 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 Carly Olvera DO Primary Care Provider Active Start: July 11, 2024 End: July 11, 2024 Dr. Carly Olvera DO Attending Provider Active St art: July 11, 2024 End: July 11, 2024 Goals (unrecognized section and content) Goals may be documented in a n alternate sectionGoals may be documented in an alternate sectionGoals may be documented in an alternate section Reason for Visit (unrecogniz ed section and content) Specialty Diagnoses / Procedures Referred By Jaziel valdes Referred To Contact Radiology Diagnoses Elevated PSA Procedures MR prostate with nicki boundaries Cody Graham MD [address] [place] [id number] Referral ID Status Reason Start Date Expiration Date Visits Requested Visits Authorized [id number] Authorized Perform Procedure 04/22/2023 04/21/2024 1 1 Reason Comments MRI results Specialty Diagnoses / Procedures Referred By Jaziel valdes Referred To Contact Diagnoses Elevated PSA Elevated PSA [R97.20] Procedures AL PROSTATE NEEDLE BIOPSY ANY APPROACH CHG US TRANSRECTAL CHG US GUIDANCE NEEDLE PLACEMENT IMG S&I Biopsy Prostate Ultrasonography Transrectal Prostate Biopsy Prostate with Navigation Cody Graham MD [address] [place] [address] [phone] Referral ID Status Reason Start Date Expiration Date Visits Re quested Visits Authorized [id number] 1 1 Scheduled Active and Recently Administ ered Medications (unrecognized section and content) Medication Order 06/07/2023 06/08/2023 06/09/2023 dexAMETHasone (Decadron) injection 5 mg (COMPLETED) 5 mg, intravenous, Once, On 06/09/23 at 0730, For 1 dose, Preprocedure 0728 (Given - Provid er: Eugenie Lezama RN) ondansetron (Zofran) injection 4 mg (COMPLETED) 4 mg, intravenous, Once, On e 06/09/23 at 0730, For 1 dose, Preprocedure, When administering via IV Push, administer over 3-5 minutes. 0728 (Given - Provid er: Eugenie Lezama RN) Continuous Medication Order 06/07/2023 06/08/2023 06/09/2023 lactated Ringer's infusion 100 mL/hr, intravenous, Continuous, Starting on 06/09/23 at 0730, Preprocedure 0724 (New Bag - Prov ider: Eugenie Lezama RN)[id number] (Stopped - Provider: Khushi Sherman, STEPHEN) PRN Medication Order 06/07/2023 06/08/2023 06/09/2023 midazolam (Versed) injection 2 mg (COMPLETED) 2 mg, intravenous, Once as needed, anxiety, Starting on Thu06/09/23 at 0707, For 1 dose, Preprocedure 0728 (Given - Provid er: Eugenie Lezama RN) FOR RECORDS PERTAINING TO PATIENTS WHO ARE OR HAVE BEEN ENROLLED IN A CHEMICAL DEPENDENCY/SUBSTANCEABUSE PROGRAM, SOME INFORMATION MAY BE OMITTED. This clinical summary was aggregated from multiple sources. Caution should be exercised in using it in the provision of clinical care. This summary normalizes information from multiple sources, and as a consequence, information in this document may materially change the coding, format and clinical context of patient data. In addition, data may be omitted in some cases. CLINICAL DECISIONS SHOULD BE BASED ON THE PRIMARY CLINICAL RECORDS. [facility]. provides no warranty or guarantee of the accuracy or completeness of information in this document.
[2025-02-25 10:31] LABS: Cytology, Body Fluid / CSF SEE PATHOLOGY REPORT
== END | disposition home or self-care (01) ==
LOC: LABSPEC 10:27
PROVIDERS: PCP Family Medicine; Visit Provider Family Medicine
DX: R31.9 Hematuria, unspecified (principal); R36.1 Hematospermia
CPT/HCPCS: 88108; 88313

== ENCOUNTER → 2025-02-25 | Outpatient (CLI) | payer MEDICARE, BC, SELFPAY ==
[2025-02-25 11:23] LABS: Hematocrit 44.3 % (40-54); Hemoglobin 15.8 g/dL (13.0-16.5); Immature Granulocytes Count 0.020 X10^3/uL (0.0-0.0); Mean Corp Hgb Conc 35.7 g/dL (32-36); Mean Corpuscular Volume 84.1 fL (80-94); Mean Platelet Vol. 11.4 fl (6.2-12.0); NRBC Flagged by Analyzer 0 % (0-5); Platelet Count 179 K/mm3 (150-450); RBC Distribution Width CV 12.6 % (11.6-14.6); RBC Distribution Width SD 38.4 fl (35.1-43.9); Red Blood Count 5.27 M/mm3 (4.6-6.2); White Blood Count 6.9 K/mm3 (4.4-11.0)
== END | disposition home or self-care (01) ==
LOC: LAB 10:45
PROVIDERS: PCP Family Medicine; Referring Provider Family Medicine; Visit Provider Family Medicine
DX: R31.9 Hematuria, unspecified (principal); R36.1 Hematospermia
CPT/HCPCS: 36415; 85025

== ENCOUNTER → 2025-03-11 | Outpatient (CLI) | payer MEDICARE, BC, SELFPAY ==
--- OUTSIDE RECORDS SUMMARY | 2025-03-11 11:22 | XMS RPT_ITS | CCD ---
Author Organization [facility] Care Team Providers Care Addressograph Operator Name Role Phone Unavailable Primary Care Provider Unavailabl e CODY GRAHAM Attending Unavailable BARRY, CODY Hansen Attending Unavailable MalCarly hughes DO Primary Care Provider [phone] CODY GRAHAM Referring Unavailable CARLY OLVERA Primary Care Unavailable May GARBER, Dr. Carroll Primary Care Provider May GARBER, Dr. Carroll Attending Provider [phone] Naderys, Carly Attending Unavailable Malys, Carly Primary Care Unavailable Malys, Carly Referring Unavailable Malys, Carly Attending Unavailable Malys, Carly Primary Care Unavailable Malys, Carly Referring Unavailable Malys, Carly Attending Unavailable Malys, Carly Primary Care Unavailable Malys, Carly Attending Unavailable Malys, Carly Primary Care Unavailable Medications Current Medications Medication Drug Class(es) Dates Sig (Normalized) Sig (Original) acetaminophen 325 mg / HYDROcodone bitartrate 5 mg oral tablet (1 source) Opioid Agonist Start: 06-09-2023 take 1 tablet by mouth every six hours for pain HYDROcodone-aceta minophen (Melvern) 5-325 mg tablet Indications: Elevated PSA Take 1 tablet by mouth every 6 hours if needed for severe pain (7 - 10). 20 tablet 0 06/09/2023 Active Start: 06-09-2023 take 1 tablet by jamal th every six hours for pain HYDROcodone-acetaminophen (Melvern) 5-325 mg tablet Indications: Elevated PSA Take [...] Start: 09-07-2016 take 1 tablet by jamal th once daily Simvastatin 5 MG tablet Active [...] Test Name Value Interpretation Reference Range Facility CBC W/Diff, Automatedon 11-0 Absolute Lymph 1.36 X10 3/uL Normal 0.83-4.51 [facility] Comment on above: Performed By: #### L 100.0100 #### [facility] [place], [address] Absolute Neut 5.0 X10 3/uL Normal 2.0-7.7 [facility] Comment on above: Performed By: #### L 100.0100 #### [facility] [address] [place], [address] Basophils/100 WBC (Bld) 0.6 % Normal 0-1 [facility] Comment on above: Performed By: #### L 100.0100 #### [facility] [address] [place], [address] Eosinophils/100 WBC (Bld) 0.9 % Normal 0-5 [facility] Comment on above: Performed By: #### L 100.0100 #### [facility] [address] [place], [address] Erythrocyte distribution width (RBC) [Ratio] 12.6 % Normal 11.6-14.6 [facility] Comment on above: Performed By: #### L 100.0100 #### [facility] [address] [place], [address] Hematocrit (Bld) [Volume fraction] 44.3 % Normal 40-54 [facility] Comment on above: Performed By: #### L 100.0100 #### [facility] [address] [place], [address] Hemoglobin (Bld) [Mass/Vol] 15.8 g/dL Normal 13.0-16.5 [facility] Comment on above: Performed By: #### L 100.0100 #### [facility] [address] [place], [address] IG% 0.300 Normal 0.0-0.9 [facility] Comment on above: Result Comment: IG% - Immature Granulocytes (promyelocytes, myelocytes and metamyelocytes) > 1% indicates that a LEFT SHIFT is Present. Performed By: #### L 100.0100 #### [facility] [address] [place], [address] Lymphocytes/100 WBC (Bld) 19.9 % Normal 19-41 [facility] Comment on above: Performed By: #### L 100.0100 #### [facility] [address] [place], [address] MCH (RBC) [Entitic mass] 30.0 pg Normal 27.0-32.0 [facility] Comment on above: Performed By: #### L 100.0100 #### [facility] [address] [place], [address] MCHC (RBC) [Mass/Vol] 35.7 g/dL Normal 32-36 [facility] Comment on above: Performed By: #### L 100.0100 #### [facility] [address] [place], [address] MCV (RBC) [Entitic vol] 84.1 fL Normal 80-94 [facility] Comment on above: Performed By: #### L 100.0100 #### [facility] [address] [place], [address] Monocytes/100 WBC (Bld) 5.5 % Normal 0-10 [facility] Comment on above: Performed By: #### L 100.0100 #### [facility] [address] [place], [address] Neutrophils/100 WBC (Bld) 72.8 % High 47-70 [facility] Comment on above: Performed By: #### L 100.0100 #### [facility] [address] [place], [address] Nucleated RBC (Bld) [#/Vol] 0 10*3/uL Normal 0-5 [facility] Comment on above: Performed By: #### L 100.0100 #### [facility] [address] [place], [address] Platelet mean volume (Bld) [Entitic vol] 11.4 fL Normal 6.2-12.0 [facility] Comment on above: Performed By: #### L 100.0100 #### [facility] [address] [place], [address] Platelets (Bld) [#/Vol] 179 10*3/uL Normal 150-450 [facility] Comment on above: Performed By: #### L 100.0100 #### [facility] [address] [place], [address] RBC (Bld) [#/Vol] 5.27 10*6/uL Normal 4.6-6.2 [facility] Comment on above: Performed By: #### L 100.0100 #### [facility] [address] [place], [address] RDW SD 38.4 fl Normal 35.1-43.9 [facility] Comment on above: Performed By: #### L 100.0100 #### [facility] [address] [place], [address] WBC (Bld) [#/Vol] 6.9 10*3/uL Normal 4.4-11.0 [facility] Comment on above: Performed By: #### L 100.0100 #### [facility] [address] [place], [address] Cytology, Body Fluid / CSFon 02-25-2025 CYTOLOGY,BF/CSF SEE PATHOLOGY REPORT Normal [facility] Comment on above: Order Comment: URINE Result Comment: Spec imen submitted to Anatomical Pathology Department for testing. Performed By: #### L 350.1000 #### [facility] [address] [place], [address] Pap Stain (control)on 2024 Pap Stain (control) Patient Age/Sex Location Account Attending Physician ROM SINHA 70/M LABSPEC [id number] Dr. Carly Olvera DO Specimen: [id number] Received: 02/25/25 Status: DAYO Sandra Num: [id number] Spec Type: CYSPIN FL Subm Dr: Dr. Carly Olvera, DO HEADER OPERATION: Not noted PRE-OP DIAGNOSIS: Hematuria, hematospermia TISSUE SUBMITTED: A- Urine for cytology - voided DIAGNOSIS CYTOLOGY A. Urine, voided (cytospin): - Negative for high grade urothelial carcinoma. - Acute inflammation and bacteria present. CYTOLOGY STUDY Slides are reviewed. CYTOLOGY GROSS A. Received is 50 ml of hazy-yellow fluid labeled with the patient's name and and designated per the requisition as "urine." Submitted for cytology preparation. Mr 02/27/2025 CPT: 67709 Signed (signatur e on file) Dr. Rebeka Flores MD 02/28/25 0955 Normal [facility] Comment on above: Performed By: #### P PAPS #### [facility] [address] [place], [address] Microalb:Creat Ratio,Random URon 10-06-2024 MALB:CREAT 32.7 mg/g CRE Normal [facility] Comment on above: Result Comment: AMENDED REPORT 10/06/24 7802 MALB:CREAT previously reported as: 327.1 mg/g CRE Performed By: #### L 501.9985, L500.4100, L100.0100, L502.0250, L501.9910, L500.4050 #### [facility] [address] [place], [place], [address] Hemoglobin A1con 07-12-2024 HbA1c (Bld) [Mass fraction] 6.6 % Normal <=5.6 [facility] Comment on above: Performed By: #### L 501.9985, L500.4100, L100.0100, L502.0250, L501.9910, L500.4050 #### [facility] [address] [place], [address] Absolute neutrophil countOrd ered By: Carly Olvera on 07-11-2024 Neutrophils (Bld) [#/Vol] 4.1 10*3/uL 2.0-7.7 [facility] Albumin DL <= 20 mg/L (U) [M ass/Vol]Ordered By: Carly Olvera on 07-11-2024 Urine Random Microalbumin 74.9 mg/L NO RANGE EST. [facility] Anion gap in Serum or Plasma Ordered By: Carly Olvera on 07-11-2024 Anion gap [Moles/Vol] 11 mmol/L 5-15 [facility] BUN/creatinine ratioOrdered By: Carly Olvera on 07-11-2024 Urea nitrogen/Creatinine [Mass ratio] 14.4 mg/mg 10-20 [facility] Basophil percentageOrdered B y: Carly Olvera on 07-11-2024 Basophils/100 WBC (Bld) 0.7 % 0-1 [facility] Bilirubin, totalOrdered By: Carly Olvera on 07-11-2024 Bilirubin [Mass/Vol] 0.36 mg/dL 0.00-1.30 [facility] CBC W/Diff, Automatedon 06-19 Absolute Lymph 0.86 X10 3/uL Normal 0.83-4.51 [facility] Comment on above: Performed By: #### L 501.9985, L500.4100, L100.0100, L502.0250, L501.9910, L500.4050 #### [facility] [address] [place], [address] Absolute Neut 4.1 X10 3/uL Normal 2.0-7.7 [facility] Comment on above: Performed By: #### L 501.9985, L500.4100, L100.0100, L502.0250, L501.9910, L500.4050 #### [facility] [address] [place], [address] Basophils/100 WBC (Bld) 0.7 % Normal 0-1 [facility] Comment on above: Performed By: #### L 501.9985, L500.4100, L100.0100, L502.0250, L501.9910, L500.4050 #### [facility] [address] [place], [address] Eosinophils/100 WBC (Bld) 0.6 % Normal 0-5 [facility] Comment on above: Performed By: #### L 501.9985, L500.4100, L100.0100, L502.0250, L501.9910, L500.4050 #### [facility] [address] [place], [address] Erythrocyte distribution width (RBC) [Ratio] 16.2 % High 11.6-14.6 [facility] Comment on above: Performed By: #### L 501.9985, L500.4100, L100.0100, L502.0250, L501.9910, L500.4050 #### [facility] [address] [place], [address] Hematocrit (Bld) [Volume fraction] 40.2 % Normal 40-54 [facility] Comment on above: Performed By: #### L 501.9985, L500.4100, L100.0100, L502.0250, L501.9910, L500.4050 #### [facility] [address] [place], [address] Hemoglobin (Bld) [Mass/Vol] 11.8 g/dL Low 13.0-16.5 [facility] Comment on above: Performed By: #### L 501.9985, L500.4100, L100.0100, L502.0250, L501.9910, L500.4050 #### [facility] [address] [place], [address] IG% 0.400 Normal 0.0-0.9 [facility] Comment on above: Result Comment: IG% - Immature Granulocytes (promyelocytes, myelocytes and metamyelocytes) > 1% indicates that a LEFT SHIFT is Present. Performed By: #### L 501.9985, L500.4100, L100.0100, L502.0250, L501.9910, L500.4050 #### [facility] [address] [place], [address] Lymphocytes/100 WBC (Bld) 16.0 % Low 19-41 [facility] Comment on above: Performed By: #### L 501.9985, L500.4100, L100.0100, L502.0250, L501.9910, L500.4050 #### [facility] [address] [place], [address] MCH (RBC) [Entitic mass] 21.8 pg Low 27.0-32.0 [facility] Comment on above: Performed By: #### L 501.9985, L500.4100, L100.0100, L502.0250, L501.9910, L500.4050 #### [facility] [address] [place], [address] MCHC (RBC) [Mass/Vol] 29.4 g/dL Low 32-36 [facility] Comment on above: Performed By: #### L 501.9985, L500.4100, L100.0100, L502.0250, L501.9910, L500.4050 #### [facility] [address] [place], [address] MCV (RBC) [Entitic vol] 74.3 fL Low 80-94 [facility] Comment on above: Performed By: #### L 501.9985, L500.4100, L100.0100, L502.0250, L501.9910, L500.4050 #### [facility] [address] [place], [address] Monocytes/100 WBC (Bld) 5.2 % Normal 0-10 [facility] Comment on above: Performed By: #### L 501.9985, L500.4100, L100.0100, L502.0250, L501.9910, L500.4050 #### [facility] [address] [place], [address] Neutrophils/100 WBC (Bld) 77.1 % High 47-70 [facility] Comment on above: Performed By: #### L 501.9985, L500.4100, L100.0100, L502.0250, L501.9910, L500.4050 #### [facility] [address] [place], [address] Nucleated RBC (Bld) [#/Vol] 0 10*3/uL Normal 0-5 [facility] Comment on above: Performed By: #### L 501.9985, L500.4100, L100.0100, L502.0250, L501.9910, L500.4050 #### [facility] [address] [place], [address] Platelet mean volume (Bld) [Entitic vol] 10.7 fL Normal 6.2-12.0 [facility] Comment on above: Performed By: #### L 501.9985, L500.4100, L100.0100, L502.0250, L501.9910, L500.4050 #### [facility] [address] [place], [address] Platelets (Bld) [#/Vol] 172 10*3/uL Normal 150-450 [facility] Comment on above: Performed By: #### L 501.9985, L500.4100, L100.0100, L502.0250, L501.9910, L500.4050 #### [facility] [address] [place], [address] RBC (Bld) [#/Vol] 5.41 10*6/uL Normal 4.6-6.2 [facility] Comment on above: Performed By: #### L 501.9985, L500.4100, L100.0100, L502.0250, L501.9910, L500.4050 #### [facility] [address] [place], [place], [address] RDW SD 43.2 fl Normal 35.1-43.9 [facility] Comment on above: Performed By: #### L 501.9985, L500.4100, L100.0100, L502.0250, L501.9910, L500.4050 #### [facility] [address] [place], [place], [address] WBC (Bld) [#/Vol] 5.4 10*3/uL Normal 4.4-11.0 [facility] Comment on above: Performed By: #### L 501.9985, L500.4100, L100.0100, L502.0250, L501.9910, L500.4050 #### [facility] [address] [place], [place], [address] Calculated very low density lipoprotein (VLDL) cholesterol measurementOrdered By: Carly Olvera on 07-11-2024 VLDL Cholesterol 23 mg/dL 5-40 [facility] Carbon dioxide, total [Moles /volume] in Central venous bloodOrdered By: Carly Olvera on 07-11-2024 CO2 [Moles/Vol] 23.3 mmol/L 21.0-32.0 [facility] Chloride assayOrdered By: Evelina Olvera on 07-11-2024 Chloride [Moles/Vol] 107 mmol/L 98-108 [facility] Comprehensive Metabolic Prof ilon 07-11-2024 Albumin [Mass/Vol] 4.4 g/dL Normal 3.4-4.8 [facility] Comment on above: Performed By: #### L 501.9985, L500.4100, L100.0100, L502.0250, L501.9910, L500.4050 #### [facility] [address] [place], [address] Albumin/Globulin [Mass ratio] 1.8 {ratio} Normal 0.9-2.4 [facility] Comment on above: Performed By: #### L 501.9985, L500.4100, L100.0100, L502.0250, L501.9910, L500.4050 #### [facility] [address] [place], [address] ALK PHOS 71 U/L Normal 40-129 [facility] Comment on above: Performed By: #### L 501.9985, L500.4100, L100.0100, L502.0250, L501.9910, L500.4050 #### [facility] [address] [place], [address] ALT [Catalytic activity/Vol] 12 U/L Normal <=46 [facility] Comment on above: Performed By: #### L 501.9985, L500.4100, L100.0100, L502.0250, L501.9910, L500.4050 #### [facility] [address] [place], [address] AST [Catalytic activity/Vol] 16 U/L Normal <=37 [facility] Comment on above: Performed By: #### L 501.9985, L500.4100, L100.0100, L502.0250, L501.9910, L500.4050 #### [facility] [address] [place], [address] Bilirubin [Mass/Vol] 0.36 mg/dL Normal 0.00-1.30 [facility] Comment on above: Performed By: #### L 501.9985, L500.4100, L100.0100, L502.0250, L501.9910, L500.4050 #### [facility] [address] [place], [address] BUN/CRE 14.4 RATIO Normal 10-20 [facility] Comment on above: Performed By: #### L 501.9985, L500.4100, L100.0100, L502.0250, L501.9910, L500.4050 #### [facility] [address] [place], [address] Calcium [Mass/Vol] 9.4 mg/dL Normal 7.6-11.0 [facility] Comment on above: Performed By: #### L 501.9985, L500.4100, L100.0100, L502.0250, L501.9910, L500.4050 #### [facility] [address] [place], [address] Chloride [Moles/Vol] 107 mmol/L Normal 98-108 [facility] Comment on above: Performed By: #### L 501.9985, L500.4100, L100.0100, L502.0250, L501.9910, L500.4050 #### [facility] [address] [place], [address] CO2 [Moles/Vol] 23.3 mmol/L Normal 21.0-32.0 [facility] Comment on above: Performed By: #### L 501.9985, L500.4100, L100.0100, L502.0250, L501.9910, L500.4050 #### [facility] [address] [place], [address] Creatinine [Mass/Vol] 0.94 mg/dL Normal 0.70-1.20 [facility] Comment on above: Performed By: #### L 501.9985, L500.4100, L100.0100, L502.0250, L501.9910, L500.4050 #### [facility] [address] [place], [address] GAP 11 Normal 5-15 [facility] Comment on above: Performed By: #### L 501.9985, L500.4100, L100.0100, L502.0250, L501.9910, L500.4050 #### [facility] [address] [place], [address] GFR/1.73 sq M.predicted among non-blacks MDRD (S/P/Bld) [Vol rate/Area] 87 mL/min/{1.73_m2} Normal >60 [facility] Comment on above: Result Comment: mL/m in/1.73m2 CKD-EPI Creatinine Equation (2020) Performed By: #### L 501.9985, L500.4100, L100.0100, L502.0250, L501.9910, L500.4050 #### [facility] [address] [place], [address] Globulin (S) [Mass/Vol] 2.5 g/dL Normal 2.2-4.2 [facility] Comment on above: Performed By: #### L 501.9985, L500.4100, L100.0100, L502.0250, L501.9910, L500.4050 #### [facility] [address] [place], [address] Glucose [Mass/Vol] 156 mg/dL High 70-99 [facility] Comment on above: Performed By: #### L 501.9985, L500.4100, L100.0100, L502.0250, L501.9910, L500.4050 #### [facility] [address] [place], [address] Potassium [Moles/Vol] 4.5 mmol/L Normal 3.3-5.1 [facility] Comment on above: Performed By: #### L 501.9985, L500.4100, L100.0100, L502.0250, L501.9910, L500.4050 #### [facility] [address] [place], [address] Sodium [Moles/Vol] 141 mmol/L Normal 133-145 [facility] Comment on above: Performed By: #### L 501.9985, L500.4100, L100.0100, L502.0250, L501.9910, L500.4050 #### [facility] [address] [place], [address] T PROT 6.8 g/dL Normal 5.9-8.4 [facility] Comment on above: Performed By: #### L 501.9985, L500.4100, L100.0100, L502.0250, L501.9910, L500.4050 #### [facility] [address] [place], [address] Urea nitrogen [Mass/Vol] 14 mg/dL Normal 4-19 [facility] Comment on above: Performed By: #### L 501.9985, L500.4100, L100.0100, L502.0250, L501.9910, L500.4050 #### [facility] [address] [place], [address] Creatinine Unsp time (U) [Ma ss/Vol]Ordered By: Carly Olvera on 07-11-2024 Creatinine (U) [Mass/Vol] 229.00 mg/dL 39.00-259.00 [facility] Eosinophil percentageOrdered By: Carly Olvera on 07-11-2024 Eosinophils/100 WBC (Bld) 0.6 % 0-5 [facility] Erythrocyte distribution wid th ratioOrdered By: Carly Olvera on 07-11-2024 Erythrocyte distribution width (RBC) [Ratio] 16.2 % High 11.6-14.6 [facility] Erythrocyte distribution wid th standard deviationOrdered By: Carly Olvera on 07-11-2024 Erythrocyte distribution width (RBC) [Entitic vol] 43.2 fL 35.1-43.9 [facility] GFR/1.73 sq M.predicted dmitri g non-blacks MDRD (S/P/Bld) [Vol rate/Area]Ordered By: Carly Olvera on 07-11-2024 Estimated GFR (MDRD) Non-Af Amer 87 >60 [facility] Comment on above: mL/min/1.73m2 CKD-EP I Creatinine Equation (2020) Hematocrit Auto (Bld) [Volum e fraction]Ordered By: Carly Olvera on 07-11-2024 Hematocrit (Bld) [Volume fraction] 40.2 % 40-54 [facility] Hemoglobin A1c percentageOrd ered By: Carly Olvera on 07-11-2024 HbA1c (Bld) [Mass fraction] 6.6 % >5.7 [facility] Hemoglobin measurementOrdere d By: Carly Olvera on 07-11-2024 Hemoglobin (Bld) [Mass/Vol] 11.8 g/dL Low 13.0-16.5 [facility] Immature granulocytes/100 WB C Auto (Bld)Ordered By: Carly Olvera on 07-11-2024 Immature granulocytes/100 WBC (Bld) 0.400 % 0.0-0.9 [facility] Comment on above: IG% - Immature Granu locytes (promyelocytes, myelocytes and metamyelocytes) > 1% indicates that a LEFT SHIFT is Present. LDL calc ser/plasOrdered By: Carly Olvera on 07-11-2024 LDL Cholesterol, Calculated 42 mg/dL [facility] Comment on above: Kupajxvxen=445-060 m g/dL & Higher Lwqi=957 mg/dL or greater Laboratory - Chemistry and C hemistry - challengeOrdered By: Carly Olvera on 07-11-2024 AST [Catalytic activity/Vol] 16 U/L <38 [facility] Lipid Profileon 07-11-2024 CHOL:HDL 2.47 Normal [facility] Comment on above: Performed By: #### L 501.9985, L500.4100, L100.0100, L502.0250, L501.9910, L500.4050 #### [facility] [address] [place], [address] Cholesterol [Mass/Vol] 109 mg/dL Normal <=200 [facility] Comment on above: Result Comment: Chol esterol level, Desirable <200 mg/dL Borderline high cholesterol 200-239 mg/dL High cholesterol >=240 mg/dL Recommendations of the NCEP Adult Treatment Panel for the following risk-cutoff thresholds for the [place] population. Performed By: #### L 501.9985, L500.4100, L100.0100, L502.0250, L501.9910, L500.4050 #### [facility] [address] [place], [address] Cholesterol in HDL [Mass/Vol] 44 mg/dL Normal [facility] Comment on above: Result Comment: Jenny onal Cholesterol Education Program (NCEP) guidelines: <40 mg/dL: Low HDL-cholesterol (major risk factor for CHD) >= 60 mg/dL: High HDL-cholesterol (negative risk factor for CHD) HDL-cholesterol is affected by a number of factors, e.g. smoking, exercise, hormones, sex and age. Performed By: #### L 501.9985, L500.4100, L100.0100, L502.0250, L501.9910, L500.4050 #### [facility] [address] [place], [address] Cholesterol in LDL [Mass/Vol] 42 mg/dL Normal [facility] Comment on above: Result Comment: Bord gwhluk=617-906 mg/dL Higher Filk=091 mg/dL or greater Performed By: #### L 501.9985, L500.4100, L100.0100, L502.0250, L501.9910, L500.4050 #### [facility] [address] [place], [address] Cholesterol in VLDL [Mass/Vol] 23 mg/dL Normal 5-40 [facility] Comment on above: Performed By: #### L 501.9985, L500.4100, L100.0100, L502.0250, L501.9910, L500.4050 #### [facility] [address] [place], [place], [address] Triglyceride [Mass/Vol] 115 mg/dL Normal [facility] Comment on above: Result Comment: The drugs N-Acetylcysteine and Metamizole may falsely depress this assay. Normal range: <150 mg/dL Borderline High: 150-199 mg/dL High: 200-499 mg/dL Very High: >500 mg/dL Performed By: #### L 501.9985, L500.4100, L100.0100, L502.0250, L501.9910, L500.4050 #### [facility] [address] [place], [place], [address] Lymphocytes Auto (Unsp spec) [#/Vol]Ordered By: Carly Olvera on 07-11-2024 Lymphocytes (Bld) [#/Vol] 0.86 10*3/uL 0.83-4.51 [facility] Lymphocytes/100 WBC Auto (Un sp spec)Ordered By: Carly Olvera on 07-11-2024 Lymphocytes/100 WBC (Bld) 16.0 % Low 19-41 [facility] MCV (mean corpuscular volume ) determinationOrdered By: Carly Olvera on 07-11-2024 MCV (RBC) [Entitic vol] 74.3 fL Low 80-94 [facility] Mean corpuscular hemoglobin (MCH) determinationOrdered By: Carly Olvera on 07-11-2024 MCH (RBC) [Entitic mass] 21.8 pg Low 27.0-32.0 [facility] Mean corpuscular hemoglobin concentration (MCHC) determinationOrdered By: Carly Olvera on 07-11-2024 MCHC (RBC) [Mass/Vol] 29.4 g/dL Low 32-36 [facility] Mean platelet volume determi nationOrdered By: Carly Olvera on 07-11-2024 Platelet mean volume (Bld) [Entitic vol] 10.7 fL 6.2-12.0 [facility] Microalbumin/creat ratio urO rdered By: Carly Olvera on 07-11-2024 Urine Microalbumin/Creatinine Ratio 327.1 mg/g CRE [facility] Monocyte percentageOrdered B y: Carly Olvera on 07-11-2024 Monocytes/100 WBC (Bld) 5.2 % 0-10 [facility] Neutrophil percentageOrdered By: Carly Olvera on 07-11-2024 Neutrophils/100 WBC (Bld) 77.1 % High 47-70 [facility] Nucleated red blood cell per centageOrdered By: Carly Olvera on 07-11-2024 Nucleated RBC/100 WBC (Bld) [Ratio] 0 % 0-5 [facility] PSA, total screeningOrdered By: Carly Olvera on 07-11-2024 Prostate Specific Antigen Screen 6.48 ng/mL High 0.02-4.00 [facility] Comment on above: This test was perfor med using the [employer] tPSA method. Measured [...] 07-11-2024 PSA,TOT SCREEN 6.48 ng/mL High 0.02-4.00 [facility] Comment on above: Result Comment: This test was performed using the [employer] tPSA method. Measured values of a patient??sample can vary depending on the testing procedure used. PSA values determined on patient samples by different testing procedures cannot be used interchangeably. If there is a change in PSA assays while monitoring therapy, sequential testing should be performed to confirm baseline values. Performed By: #### L 501.9985, L500.4100, L100.0100, L502.0250, L501.9910, L500.4050 #### [facility] [address] [place], [address] Platelet countOrdered By: Evelina padilla May on 07-11-2024 Platelets (Bld) [#/Vol] 172 10*3/uL 150-450 [facility] Potassium (Unsp spec) [Mass/ Vol]Ordered By: Carly Nadersaul on 07-11-2024 Potassium [Moles/Vol] 4.5 mmol/L 3.3-5.1 [facility] RBC Auto (Bld) [#/Vol]Ordere d By: Carly Olvera on 07-11-2024 RBC (Bld) [#/Vol] 5.41 10*6/uL 4.6-6.2 [facility] Screening total cholesterol/ high density lipoprotein (HDL) cholesterol ratioOrdered By: Carly Olvera on 07-11-2024 Cholesterol.total/Choles terol in HDL [Mass ratio] 2.47 {ratio} [facility] Serum creatinine measurement (mass/volume)Ordered By: Carly Olvera on 07-11-2024 Creatinine [Mass/Vol] 0.94 mg/dL 0.70-1.20 [facility] Serum globulin measurementOr dered By: Carly Olvera on 07-11-2024 Globulin (S) [Mass/Vol] 2.5 g/dL 2.2-4.2 [facility] Serum glucose measurement (m ass/volume)Ordered By: Carly Olvera on 07-11-2024 Glucose [Mass/Vol] 156 mg/dL High 70-99 [facility] Serum or plasma alanine gaytan otransferase (ALT) measurementOrdered By: Carly Olvera on 07-11-2024 ALT [Catalytic activity/Vol] 12 U/L <47 [facility] Serum or plasma albumin nereyda urement (mass/volume)Ordered By: Carly Olvera on 07-11-2024 Albumin [Mass/Vol] 4.4 g/dL 3.4-4.8 [facility] Serum or plasma albumin/glob ulin mass ratioOrdered By: Carly Olvera on 07-11-2024 Albumin/Globulin [Mass ratio] 1.8 {ratio} 0.9-2.4 [facility] Serum or plasma alkaline sherwin sphatase measurementOrdered By: Carly Olvera on 07-11-2024 ALP [Catalytic activity/Vol] 71 U/L 40-129 [facility] Serum or plasma calcium nereyda urement (mass/volume)Ordered By: Carly Olvera on 07-11-2024 Calcium [Mass/Vol] 9.4 mg/dL 7.6-11.0 [facility] Serum or plasma cholesterol in HDL measurement (mass/volume)Ordered By: Carly Olvera on 07-11-2024 Cholesterol in HDL [Mass/Vol] 44 mg/dL >40 [facility] Comment on above: National Cholesterol Education Program (NCEP) guidelines:<40 mg/dL: Low HDL-cholesterol (major risk factor for CHD)>= 60 mg/dL: High HDL-cholesterol (negative risk factor for CHD)HDL-cholesterol is affected by a number of factors, e.g. smoking, exercise, hormones, sex and age. Serum or plasma cholesterol measurement (mass/volume)Ordered By: Carly Olvera on 07-11-2024 Cholesterol [Mass/Vol] 109 mg/dL <201 [facility] Comment on above: Cholesterol level, D esirable <200 mg/dLBorderline high cholesterol 200-239 mg/dLHigh cholesterol >=240 mg/dLRecommendations of the NCEP Adult Treatment Panel for the following risk-cutoff thresholds for the [place] population. Serum or plasma urea nitroge n measurement (mass/volume)Ordered By: Carly Olvera on 07-11-2024 Urea nitrogen [Mass/Vol] 14 mg/dL 4-19 [facility] Sodium levelOrdered By: Carly Olvera on 07-11-2024 Sodium [Moles/Vol] 141 mmol/L 133-145 [facility] Total proteinOrdered By: Francisca Olvera on 07-11-2024 Protein [Mass/Vol] 6.8 g/dL 5.9-8.4 [facility] Triglycerides measurementOrd ered By: Carly Olvera on 07-11-2024 Triglyceride [Mass/Vol] 115 mg/dL <199 [facility] Comment on above: The drugs N-Acetylcy steine and Metamizole may falsely depress this assay. Normal range: <150 mg/dLBorderline High: 150-199 mg/dLHigh: 200-499 mg/dLVery High: >500 mg/dL White blood cell (WBC) count Ordered By: Carly Olvera on 07-11-2024 WBC (Bld) [#/Vol] 5.4 10*3/uL 4.4-11.0 [facility] Glucose Test strip manual (B ld) [Mass/Vol]on 06-09-2023 Glucose [Mass/Vol] 147 mg/dL High 74 - 99 mg/dL [facility] Interpretation and review of laboratory results Abnormal [facility] Glucose [Mass/Vol] 147 mg/dL High 74-99 [facility] Comment on above: Performed By: #### 2 [id number] #### PHILLIPS MARIAMA ([id number]) [facility] ([facility]) [address] [place] [address] Surgical pathology studyon 0 06-09-2023 Surgical pathology study Pathology report.total SEE COMMENT Surgical Pathology Case: [id number] Authorizing Provider: Cody Graham MD Collected: 06/09/2023 0750 Ordering Location: [facility] Received: 06/09/2023 1521 Center OR Pathologist: [...] submitted in toto in two cassettes. [facility] Normal [facility] Comment on above: Order Comment: Pre-o p diagnosis: Elevated PSA [R97.20] MR PROSTATE NICKI BOUNDARIESon 04-27-2023 MR PROSTATE NICKI BOUNDARIES Interpreted By: Colby Chin, and Socrates Barahona STUDY: MR PROSTATE NICKI BOUNDARIES; 04/27/2023 10:47 am INDICATION: Signs/Symptoms:elev ated PSA. Most recent PSA 7.18 per clinical documentation COMPARISON: None. ACCESSION NUMBER(S): [id number] ORDERING CLINICIAN: CODY GRAHAM TECHNIQUE: Multiplanar MRI of the pelvis was obtained including axial, sagittal and coronal T2 weighted SSFSE, axial and sagittal T2 FSE, axial DWI, pre and post gadolinium dynamic T1 GRE sequences. Multiparametric analysis was performed. 20 mL Dotarem was administered intravenously without immediate complications. 3D post-processing was performed using [employer], on an independent workstation, for the purpose of enabling fusion with ultrasound, and provided it for review. FINDINGS: PROSTATE VOLUME: The prostate measures 5.6 cm x 5.1 cm x 6.2 cm in [id number], anterior-posterior and craniocaudal dimension. Prostate weight is [...] as stated. This study was interpreted at [facility], [place], [place]. MACRO: None Signed by: Colby Chin 04/30/2023 7:24 PM Dictation workstation: [id number] [facility] No Panel InformationOrdered By: Carly Olvera on 02-16-2023 Prostate Specific Antigen Total 7.18 ng/mL 0.0-4.0 [facility] Comment on above: This test was perfor med using the TPSA assay method for the[employer] chemistry system. Values obtained with differentassay methods cannot be used interchangably.When changing PSA assays in the course of monitoring apatient, additional sequential testing should be carriedout to confirm baseline values. Whole blood hemoglobin A1c/t otal hemoglobin ratio (mass fraction)Ordered By: Carly Olvera on 02-16-2023 HbA1c (Bld) [Mass fraction] 6.0 % 3.8-5.6 [facility] Comment on above: Normal < 5.7 % Predi abetic 5.7 - 6.4 % Diabetic >or= 6.5 % Please note range changes. Absolute lymphocyte countOrd ered By: Dr. Olvera on 08-12-2022 Lymphocytes Auto (Unsp spec) [#/Vol] 1.17 10*3/uL 0.83-4.51 [facility] Basophil percentageOrdered B y: Dr. Olvera on 08-12-2022 Basophils/100 WBC (Bld) 0.3 % 0-1 [facility] Bilirubin [Mass/Vol] 0.50 mg/dL 0.20-1.00 [facility] Comment on above: For patients on eltr ombopag therapy, use of Dimension Lund TBIL is not recommended. Chloride [Moles/Vol] 105 mmol/L 98-107 [facility] Cholesterol [Mass/Vol] 104 mg/dL <200 [facility] Comment on above: <200 mg/dL Desirable 200-240 mg/dL Borderline >240 mg/dL High Risk Eosinophils/100 WBC (Bld) 0.4 % 0-5 [facility] Glucose [Mass/Vol] 136 mg/dL 74-106 [facility] Comment on above: Fasting Glucose resu lt greater than or equal to 126 mg/dL suggests DIABETES MELLITUS per A.D.A. criteria. Neutrophils (Bld) [#/Vol] 5.2 10*3/uL 2.0-7.7 [facility] Neutrophils/100 WBC (Bld) 75.8 % 47-70 [facility] Potassium [Moles/Vol] 3.6 mmol/L 3.5-5.1 [facility] Protein [Mass/Vol] 7.6 g/dL 6.4-8.2 [facility] Sodium [Moles/Vol] 137 mmol/L 136-145 [facility] Triglyceride [Mass/Vol] 123 mg/dL <199 [facility] Comment on above: The drugs N-Acetylcy steine and Metamizole may falsely depress this assay.Serum Triglycerides Reference Interval Normal <150 mg/dL Borderline high 150 - 199 mg/dL High 200 - 499 mg/dL Very High > or = 500 mg/dL WBC (Bld) [#/Vol] 6.8 10*3/uL 4.4-11.0 [facility] Blood erythrocytes count (nu mber/volume)Ordered By: Dr. Olvera on 08-12-2022 RBC (Bld) [#/Vol] 5.20 10*6/uL 4.6-6.2 [facility] Blood hemoglobin measurement (mass/volume)Ordered By: Dr. Olvera on 08-12-2022 Hemoglobin (Bld) [Mass/Vol] 14.9 g/dL 13.0-16.5 [facility] Blood lymphocytes/100 leukoc ytesOrdered By: Dr. Olvera on 08-12-2022 Lymphocytes/100 WBC (Bld) 17.2 % 19-41 [facility] Blood monocytes/100 leukocyt esOrdered By: Dr. Olvera on 08-12-2022 Monocytes/100 WBC (Bld) 5.9 % 0-10 [facility] Blood platelet mean volumeOr dered By: Dr. Olvera on 08-12-2022 Platelet mean volume (Bld) [Entitic vol] 12.1 fL 6.2-12.0 [facility] Determination of erythrocyte mean corpuscular volume (MCV)Ordered By: Dr. Olvera on 08-12-2022 MCV (RBC) [Entitic vol] 86.3 fL 80-94 [facility] Hematocrit Auto (Bld) [Volum e fraction]Ordered By: Dr. Olvera on 08-12-2022 Hematocrit (Bld) [Volume fraction] 44.9 % 40-54 [facility] Iron measurement (mass/mass) Ordered By: Dr. Olvera on 08-12-2022 Iron (Unsp spec) [Mass/Mass] 72 ug/dL 65-175 [facility] - Chemistry and C hemistry - challengeOrdered By: Dr. Olvera on 08-12-2022 ALP [Catalytic activity/Vol] 89 U/L 45-117 [facility] ALT [Catalytic activity/Vol] 27 U/L 16-61 [facility] CO2 [Moles/Vol] 27.0 mmol/L 21.0-32.0 [facility] Cobalamin (Vitamin B12) [Mass/Vol] 936 pg/mL 211-911 [facility] Globulin (S) [Mass/Vol] 3.6 g/dL 2.2-4.2 [facility] Urea nitrogen/Creatinine [Mass ratio] 17.1 mg/mg 10-20 [facility] - Hematology and Cell countsOrdered By: Dr. Olvera on 08-12-2022 Erythrocyte distribution width (RBC) [Entitic vol] 39.8 fL 35.1-43.9 [facility] Erythrocyte distribution width (RBC) [Ratio] 12.8 % 11.6-14.6 [facility] Immature granulocytes/100 WBC (Bld) 0.400 % 0.0-0.9 [facility] Comment on above: IG% - Immature Granu locytes (promyelocytes, myelocytes and metamyelocytes) > 1% indicates that a LEFT SHIFT is Present. MCH (RBC) [Entitic mass] 28.7 pg 27.0-32.0 [facility] Nucleated RBC/100 WBC (Bld) [Ratio] 0 % 0-5 [facility] MCHC Auto (RBC) [Mass/Vol]Or dered By: Dr. Olvera on 08-12-2022 MCHC (RBC) [Mass/Vol] 33.2 g/dL 32-36 [facility] No Panel InformationOrdered By: Dr. Olvera on 08-12-2022 Estimated GFR (MDRD) Amer 96 mL/min >60 [facility] Comment on above: GFR Calc Estimated GFR (MDRD) Non-Af Amer 79 mL/min >60 [facility] Comment on above: Non- GFR Calc Prostate Specific Antigen Screen 5.16 ng/mL 0.00-4.00 [facility] Comment on above: This test was perfor med using the TPSA assay method for [employer] chemistry system. Values obtained with differentassay methods cannot be used interchangably.When changing PSA assays in the course of monitoring apatient, additional sequential testing should be carriedout to confirm baseline values. Urine Microalbumin/Creatinine Ratio 7.1 mg/g CRE <30 [facility] Platelets bldOrdered By: Dr. Olvera on 08-12-2022 Platelets (Bld) [#/Vol] 158 10*3/uL 150-450 [facility] Serum or plasma albumin nereyda urement (mass/volume)Ordered By: Dr. Olvera on 08-12-2022 Albumin [Mass/Vol] 4.0 g/dL 3.2-5.0 [facility] Serum or plasma albumin/glob ulin mass ratioOrdered By: Dr. Olvear on 08-12-2022 Albumin/Globulin [Mass ratio] 1.1 {ratio} 0.9-2.4 [facility] Serum or plasma calcium nereyda urement (mass/volume)Ordered By: Dr. Olvera on 08-12-2022 Calcium [Mass/Vol] 9.0 mg/dL 8.5-10.1 [facility] Serum or plasma cholesterol in HDL measurement (mass/volume)Ordered By: Dr. Olvera on 08-12-2022 Cholesterol in HDL [Mass/Vol] 44 mg/dL >40 [facility] Comment on above: The drugs N-Acetylcy steine and Metamizole may falsely depress this assay. Reference Range HDL <40 mg/dL Low HDL Cholesterol HDL >or= 60 mg/dL High HDL Cholesterol Serum or plasma cholesterol in VLDL measurement (mass/volume)Ordered By: Dr. Olvera on 08-12-2022 Cholesterol in VLDL [Mass/Vol] 25 mg/dL 5-40 [facility] Serum or plasma creatinine m easurement (mass/volume)Ordered By: Dr. Olvera on 08-12-2022 Creatinine [Mass/Vol] 1.00 mg/dL 0.70-1.30 [facility] Comment on above: The validity of the calculated GFR & GFRAA in patients over 70 years has not been determined. Clinical correlation is essential. Serum or plasma low density lipoprotein (LDL) cholesterol measurement (mass/volume)Ordered By: Dr. Olvera on 08-12-2022 Cholesterol in LDL [Mass/Vol] 35 mg/dL 0-130 [facility] Serum or plasma urea nitroge n measurement (mass/volume)Ordered By: Dr. Olvera on 08-12-2022 Urea nitrogen [Mass/Vol] 17 mg/dL 7-18 [facility] Thin prep Papanicolaou smear with manual screeningOrdered By: Dr. Olvera on 08-12-2022 Thin prep Papanicolaou smear with manual screening 14 U/L 15-37 [facility] Thin prep Papanicolaou smear with manual screening 5 5-15 [facility] Thin prep Papanicolaou smear with manual screening 7.6 mg/L NO RANGE EST. [facility] Urine creatinine measurement (mass/volume)Ordered By: Dr. Olvera on 08-12-2022 Creatinine (U) [Mass/Vol] 106.00 mg/dL NO RANGE EST. [facility] Whole blood hemoglobin A1c/t otal hemoglobin ratio (mass fraction)Ordered By: Dr. Olvera on 08-12-2022 HbA1c (Bld) [Mass fraction] 6.3 % 3.8-5.6 [facility] Comment on above: Normal < 5.7 % Predi abetic 5.7 - 6.4 % Diabetic >or= 6.5 % Please note range changes. CNNURSEon 08-03-2020 [facility] Nurse Visit (FAMPWS) ---- ROM SINHA ([id number]) 1955 M Date Time Provider Department 08/03/20 9:00 AM [place] NURSE JOHANAPWS During your visit today, we recorded the following information about you: Yessy Patterson LPN 08/03/2020 9:01 AM Signed Patient presents for B-12 injection. Denies any problems at this time. Patient instructed on any SE of medication, verbalized understanding and agreed to proceed with treatment. Tolerated injection well. Yessy Patterson LPN Referring Provider: FIDEL GO III [[id number]] Allergies As of Date: 08/03/2020 (No Known [...] Status:Closed by YESSY PATTERSON LPN on 08/03/20 [facility]SEon 06-26-2020 [facility] Nurse Visit (FAMPWS) ---- ROM SINHA ([id number]) 1955 M Date Time Provider Department 06/26/20 1:30 PM [place] NURSE DAVIDE During your visit today, we recorded the following information about you: Yessy Patterson LPN 06/26/2020 1:37 PM Signed Patient presents for B-12 injection. Denies any problems at this time. Patient instructed on any SE of medication, verbalized understanding and agreed to proceed with treatment. Tolerated injection well. Yessy Patterson LPN Referring Provider: FIDEL GO III [[id number]] Allergies As of Date: 06/26/2020 (No Known [...] Status:Closed by [facility]ESSY PATTERSON [facility]PN [facility] Nurse Visit (FAMPWS[facility] ---- SEAMUSROM LONGORIA ([id number]) 1955 M Date Time Provider Department 05/14/20 9:00 [facility] your visit today, we recorded the following information about you: Yessy Patterson LPN 05/14/2020 8:55 AM Signed Patient presents for B-12 injection. Denies any problems at this time. Patient instructed on any SE of medication, verbalized understanding and agreed to proceed with treatment. Tolerated injection well. Yessy Patterson LPN Referring Provider: FIDEL GO III [[id number]] Allergies As of Date: 05/14/2020 (No Known [...] by YESSY PATTERSON LPN on 05/14/20 Normal [facility] Vital Signs Date Time Vital Sign Value Performing Clinician Facility 06-09-2023 08:45-0500 Diastolic blood pressure 64 mm[Hg] Cody Graham MD Work Phone: [phone] [place] [address] 06-09-2023 08:45-0500 Heart rate 67 /min Cdoy Graham MD Work Phone: [phone] [place] [address] 06-09-2023 08:45-0500 Respiratory rate 14 /min Cody Graham MD Work Phone: [phone] [place] [address] 06-09-2023 08:45-0500 SaO2% (BldA) [Mass fraction] 96 % Cody Graham MD Work Phone: [phone])[phone] [place] [address] 06-09-2023 08:45-0500 Systolic blood pressure 130 mm[Hg] Cody Graham MD Work Phone: [phone] [place] [address] 06-09-2023 07:57-0500 Body temperature 98.2 [degF] Cody Graham MD Work Phone: [phone] [place] [address] 06-09-2023 06:29-0500 Body height 173 cm Cody Graham MD Work Phone: [phone] [place] [address] 06-09-2023 06:29-0500 Body mass index (BMI) [Ratio] 32.51 kg/m2 Cody Graham MD Work Phone: [phone] [place] [address] 06-09-2023 06:29-0500 Body weight 97.3 kg Cody Graham MD Work Phone: [phone] [place] [address] 05-13-2023 10:53-0500 Body mass index (BMI) [Ratio] 34.46 kg/m2 Cody Graham MD Work Phone: [facility] 05-13-2023 10:53-0500 Body weight 99.79 kg Cody Graham MD Work Phone: [facility] 05-13-2023 10:53-0500 Respiratory rate 16 /min Cody Graham MD Work Phone: [facility] 04-22-2023 09:28-050 Body height 170.2 cm Cody Graham MD Work Phone: [facility] 04-22-2023 09:28-0500 Body mass index (BMI) [Ratio] 35.24 kg/m2 Cody Graham MD Work Phone: [facility] 04-22-2023 09:28-050 Body weight 102.06 kg Cody Graham MD Work Phone: [facility] 04-22-2023 09:28-0500 Respiratory rate 16 /min Cody Graham MD Work Phone: [facility] Encounters Encounter Date Encounter Type Care Provider Facility Start: 02-25-2025 ambulatory Carly Olvera Facility:[facility] Start: 07-11-2024 End: 07-11-[address] Carly Olvera DO Work Phone: [facility] Work Phone: Start: 07-11-2024 End: 07-11-[address] Carly Olvera DO -[facility] Start: 07-11-2024 End: 07-11-2024 ambulatory Carly Olvera Facility:[facility] Start: 03-14-20[facility] Start: 06-09-2023 End: 06-09-2023 Subsequent hospital visit by physician Cody Graham MD Work Phone: [facility] [place] Comment on above: Elevated PSA Start: 05-13-2023 End: 05-13-2023 ambulatory CODY GRAHAM [facility]ulatory Start: 05-13-2023 End: 05-13-2023 Office outpatient visit 25 minutes Cody Graham MD Work Phone: [facility] Comment on above: Elevated PSA; BPH without obstruction/lower urinary tract symptoms; Nocturia Start: 04-27-2023 End: 04-27-2023 Subsequent hospital visit by physician [facility] Comment on above: Elevated PSA Start: 04-27-2023 End: 04-27-2023 ambulatory [facility] Start: 04-22-2023 End: 04-22-2023 ambulatory [facility] Amb[facility] Start: 04-22-2023 End: 04-22-2023 Office outpatient new 45 minutes Cody Graham MD Work Phone: [facility] Comment on above: Elevated PSA (Primar y Dx); BPH without obstruction/lower urinary tract symptoms; Nocturia Start: 02-16-2023 End: 02-16-2023 ambulatory [facility] Work Phone: Start: 02-16-2023 End: 02-16-2023 [facility] encounter [facility] Start: 08-12-2022 End: 08-12-2022 ambulatory [facility] Work Phone: Start: 08-12-2022 End: 08-12-2022 Patient encounter procedure [facility] [place] Procedures Date Procedure Procedure Detail Performing Clinician Start: 06-09-2023 Glucose quantitative blood xcpt reagent strip Cody Graham MD Work Phone: Start: 04-27-2023 MR PROSTATE NICKI BOUNDARIES CODY GRAHAM Start: 04-27-2023 Mri pelvis w/o & w/contrast material Coyd Graham MD Work Phone: Start: 12-30-2019 Colonoscopy Cody Graham MD Work Phone: Plan of Treatment Date Care Activity Detail Author Start: 12-29-2029 Screening for malign ant neoplasm of colon [facility] Start: 06-09-2026 Diabetes mellitus screening Diabetes Screening [facility] Start: 01-17-2026 DTaP/Tdap/Td Vaccine s (2 - Td or Tdap) DTaP/Tdap/Td Vaccines (2 - Td or Tdap) [facility] Start: 01-17-2026 DTaP/Tdap/Td Vaccine s (3 - Td or Tdap) DTaP/Tdap/Td Vaccines (3 - Td or Tdap) [facility] Start: 05-13-2023 End: 05-13-2023 Patient encounter procedure 05/13/2023 11:00 AM EST Office Visit [facility] [address] [phone] Cody Graham MD [facility] [place] [address] [facility] Start: 04-27-2023 End: 04-27-2023 Patient encounter procedure 04/27/2023 9:15 AM EST Appointment [id number] [place] [address] [facility] Start: 04-22-2023 End: 04-22-2024 Creatinine [Mass/volume] in Serum or Plasma Creatinine, Serum Lab Routine Elevated PSA Expected: 04/22/2023 (Approximate), Expires: 04/22/2024 [facility] Work Phone: Comment on above: Expected: 04/22/2023 (Approximate), Expires: 04/22/2024 Start: 04-22-2023 End: 04-22-2024 MR Prostate MR prostate with nicki boundaries Imaging Routine Elevated PSA Expected: 04/22/2023 (Approximate), Expires: 04/22/2024 [facility] Work Phone: Comment on above: Expected: 04/22/2023 (Approximate), Expires: 04/22/2024 Start: 03-19-2023 COVID-19 Vaccine (5 - Moderna series) COVID-19 Vaccine (5 - Moderna series) [facility] Start: 03-19-2023 COVID-19 Vaccine ( season) COVID-19 Vaccine ( season) [facility] Start: 11-25-2022 Diabetes mellitus screening Diabetes Screening [facility] Start: 07-14-2020 Pneumococcal Vaccine : 65+ Years (2 - PCV) Pneumococcal Vaccine: 65+ Years (2 - PCV) [facility] Start: 10-27-2018 Zoster Vaccines (2 o f 2) Zoster Vaccines (2 of 2) [facility] Start: 10-27-2018 Zoster Vaccines (3 o f 3) Zoster Vaccines (3 of 3) [facility] Start: 2018 Abdominal aortic aneurysm screening Abdominal Aortic Aneurysm (AAA) Screening [facility] Start: 1971 Hepatitis C screening Hepatitis C Sc reening [facility] Start: 1955 Lipid panel Lipid Panel [facility] Start: 1955 Medicare Annual Wellness Visit Medicare Annual Wellness Visit (AWV) [facility] Start: 1955 Screening for malign ant neoplasm of colon [facility] MR Prostate MR prostate with nicki boundaries Imaging Routine Elevated PSA 04/27/2023 10:47 AM EST [facility] Service Area Work Phone: End: 06-09-2023 Pulse oximetry, spot Pulse oximetry, spot Respiratory Care Routine Once for 1 Occurrences starting 06/09/2023 until 06/09/2023 [facility] Service Area Work Phone: Comment on above: Once for 1 Occurrenc es starting 06/09/2023 until 06/09/2023 Surgical pathology study Surgical Pathology Exam Pathology and Cytology Timed Elevated PSA Release Upon Ordering for 1 Occurrences starting 06/09/2023 [facility] Work Phone: Comment on above: Release Upon Orderin g for 1 Occurrences starting 06/09/2023 Payers Date Payer Category Payer Self-pay [id number] 2017 Medicare MEDICARE MEDICAR E PART A AND B [id number] 2017-Present [address] [place] [address] [id number] 2017 Unknown JERMAINE DENIS ANTHPARAM MEDICARE SELECT SUPPLEMENT [id number] 2017-Present [id number] [place] [address] [id number] 2017 Medicare [id number] 2017 Unknown [id number] 1955 Unknown [id number] 4 1955 Unknown [id number] 4 1955 Unknown [id number] 3 Self-pay SELF PAY INSURANCE [id number] 00 [id number] Unknown [facility] [id number] Unknown [id number] Unknown [id number] Unknown [id number] Unknown [id number] Social History Date Type Detail Facility Start: 09-07-2016 [facility] Start: 1955 Sex Assigned At Male [facility] Start: 04-22-2023 [facility] Work Phone: Start: 04-22-2023 End: 05-13-2023 Tobacco use and exposure Smokeless tobacco non-user [facility] Work Phone: Start: 04-22-2023 End: 06-03-2023 History of Social function [facility] Work Phone: Start: 04-22-2023 End: 06-03-2023 Tobacco use panel [facility] Work Phone: Start: 1955 Sex Assigned At Not on file [facility] Work Phone: Start: 04-17-2023 End: 06-09-2023 Exposure to SARS-CoV-2 (event) Not sure [facility] Start: 09-07-2016 End: 05-13-2023 Tobacco smoking status NHIS Ex-smoker [facility] Work Phone: Start: 04-20-1976 End: 04-20-1980 History of tobacco use Current smoker [facility] Work Phone: Start: 04-20-1976 End: 04-20-1980 History of tobacco use Cigarette Smoker [facility] Work Phone: History of tobacco use Pipe Smoker [facility] Work Phone: Start: 05-13-2023 End: 06-03-2023 Alcohol intake Current drinker of alcohol (finding) [facility] Work Phone: Start: 05-13-2023 Alcohol Comment Less than once a mon th [facility] Work Phone: Start: 07-16-2024 Sex Male (finding) [facility] Clinical Notes 05-14-2020 to 06-09-2023 Discharge [...] See printed instructions. documented in this encounter [facility] Work Phone: 06-09-2023 Note Formatting of this n ote is different from the original. Biopsy Prostate, Ultrasonography Transrectal Prostate, Biopsy Prostate with Navigation Operative Note Date: 06/09/2023 OR Location: [facility] OR Name: Rom Sinha, : 1955, Age: 68 y.o., , Sex: male Diagnosis Pre-op Diagnosis * Elevated PSA [R97.20] Post-op Diagnosis * Elevated PSA [R97.20] Procedures Biopsy Prostate 98209 - CO PROSTATE NEEDLE BIOPSY ANY APPROACH Ultrasonography Transrectal Prostate 55111 - CHG US TRANSRECTAL Biopsy Prostate with Navigation 10907 - CHG US GUIDANCE NEEDLE PLACEMENT IMG S&I Surgeons * Cody Graham - Primary Resident/Fellow/Other Marine Extension Agent: Surgeon(s) and Role: Procedure Summary Anesthesia: Monitor [...] EXAM Cody Graham MD 06/09/2023 0751 Staff: Strategy Planning Consultant: Kd Shay RN; Jamila De La Vega [...] scrubbed for the entire procedure. Cody Graham [facility] Work Phone: 06-09-2023 Miscellaneous Notes Biopsy Prostate, Ultrasonography Transrectal Prostate, Biopsy Prostate with Navigation Operative Note Date: 06/09/2023 OR Location: [facility] OR Name: Rom Sinha, : 1955, Age: 68 y.o., , Sex: male Diagnosis Pre-op Diagnosis * Elevated PSA [R97.20] Post-op Diagnosis * Elevated PSA [R97.20] Procedures Biopsy Prostate 75625 - CO PROSTATE NEEDLE BIOPSY ANY APPROACH Ultrasonography Transrectal Prostate 66763 - CHG US TRANSRECTAL Biopsy Prostate with Navigation 07272 - CHG US GUIDANCE NEEDLE PLACEMENT IMG S&I Surgeons * Cody Graham - Primary Resident/Fellow/Other Marine Extension Agent: Surgeon(s) and Role: Procedure Summary Anesthesia: Monitor [...] NICKI SURGICAL PATHOLOGY EXAM Cody Graham MD 06/09/2023750 3 : PROSTATE NEEDLE BIOPSY LEFT Tissue PROSTATE NEEDLE BIOPSY LEFT SURGICAL PATHOLOGY EXAM Cody Graham MD 06/09/2023750 Staff: Strategy Planning Consultant: Kd Shay RN; Jamila De La Vega [...] drink after midnight Additional Instructions: Will need certified driver examiner home, will receive call day before surgery with arrival time documented in this encounter [facility] Work Phone: 06-09-2023 Attending History and physical [...] fluid intake. F/U with MRI guided Bx [facility] Work Phone: 06-09-2023 History and physical note [...] MRI guided Bx documented in this encounter [facility] Work Phone: 06-03-2023 Note Formatting of this n ote is different from the original. No outpatient medications have been marked as taking for the 06/09/23 encounter (Hospital Encounter). NPO Instructions: Nothing to eat or drink after midnight Additional Instructions: Will need certified driver examiner home, will receive call day before surgery with arrival time [facility] Work Phone: 05-13-2023 History of Presen t [...] MRI guided Bx documented in this encounter [facility] Work Phone: 04-22-2023 History of Presen t illness Narrative Subjective Patient ID: Rom Sinha is a 68 y.o. male. HPI Patient is here to established as a new patient for an elevated PSA.. Denies bone pain or weight loss.. Most recent PSA was 7.18 (02/09) Previous PSA Was 5.16 (08/10).. Chronic BPH with LUTs, sx are mild [...] Asymmetric, no nodules but slightly firmer Right Carlos Seminal Vesicals: No mass. Sphincter tone: normal [...] F/U after MRI documented in this encounter [facility] Work Phone: 10-03-2020 Note HNO ID: [id number] Author: Rudy Webb Ma Service: ? Author [...] Webb Ma October 03, 2020 3:34 PM [facility] 10-03-2020 Note HNO ID: [id number] Author: Rudy Webb Ma Service: ? Author Type: ? Type: Progress Notes Filed: 10/03/2020 2:24 PM Note Text: POPULATION HEALTH NAVIGATION OUTREACH Action/FYI Left message for patient to call back regarding scheduling/care gaps. Mychart message sent. A1c order sent to PCP [...] future healthcare decisions with a power of tool maintenance worker, living will, or advance directives? No. Are you interested in a follow-up phone call or visit with a doctor for more information about planning for future health care decisions? No Referrals: N/A Message Sent to Practice: NO Navigation Signature: Rudy Webb Ma October 03, 2020 12:39 PM [facility] 10-03-2020 Note Patient Outreach (NE TNAV) ROM SINHA ([id number]) 1955 Date Time Provider Department 10/03/20 RUDY WEBB (MARCELO) NETNAV During your visit today, we recorded the following information about you: Rudy Arnaldo Stone 10/03/2020 2:24 PM Addendum POPULATION HEALTH NAVIGATION OUTREACH Action/FYI Left message for patient to call back regarding scheduling/care gaps. Mychart message sent. A1c order sent to PCP [...] future healthcare decisions with a power of tool maintenance worker, living will, or advance directives? No. Are you interested in a follow-up phone call or visit with a doctor for more information about planning for future health care decisions? No Referrals: N/A Message Sent to Practice: NO Navigation Signature: Rudy Webb Ma October 03, 2020 12:39 PM Rudy Webb Ma 10/03/2020 2:24 PM Signed Addended by: RUDY WEBB MA on: 10/03/2020 02:24 PM Modules accepted: Orders Rudyalvaro Webb Ma 10/09/2020 2:37 PM Addendum POPULATION HEALTH NAVIGATION [...] Ma October 03, 2020 3:34 PM Rudy Webb Ma 10/09/2020 2:37 PM Signed Addended by: RUDY [...] Microcytic anemia [D50.9] 12/08/2019 Encounter Status:Closed by RUDY WEBB MA on 10/03/20 [facility] 08-03-2020 Note HNO ID: [id number] Author: Yessy Patterson LPN Service: ? Author Type: ? Type: Progress Notes Filed: 08/03/2020 9:01 AM Note Text: Patient presents for B-12 injection. Denies any problems at this time. Patient instructed on any SE of medication, verbalized understanding and agreed to proceed with treatment. Tolerated injection well. Yessy Patterson LPN [facility] 06-26-2020 Note HNO ID: [id number] Author: Yessy Patterson LPN Service: ? Author Type: ? Type: Progress Notes Filed: 06/26/2020 1:37 PM Note Text: Patient presents for B-12 injection. Denies any problems at this time. Patient instructed on any SE of medication, verbalized understanding and agreed to proceed with treatment. Tolerated injection well. Yessy Patterson LPN [facility] 05-14-2020 Note HNO ID: [id number] Author: Yessy Patterson LPN Service: ? Author Type: ? Type: Progress Notes Filed: 05/14/2020 8:55 AM Note Text: Patient presents for B-12 injection. Denies any problems at this time. Patient instructed on any SE of medication, verbalized understanding and agreed to proceed with treatment. Tolerated injection well. Yessy Patterson LPN [facility] Evaluation note No assessment inform ation available [facility] Work Phone: Evaluation note Diagnosis Elevated PSA- Primary Elevated prostate specific antigen (PSA) BPH without obstruction/lower urinary tract symptoms Nocturia documented in this encounter [facility] Work Phone: Evaluation note* Diagnosis Elevated PSA Elevated prostate specific antigen (PSA) documented in this encounter [facility] Work Phone: Evaluation note* Diagnosis Elevated PSA Elevated prostate specific antigen (PSA) BPH without obstruction/lower urinary tract symptoms Nocturia documented in this encounter [facility] Work Phone: Evaluation note* Diagnosis Elevated PSA- Primary Elevated prostate specific antigen (PSA) documented in this encounter [facility] Work Phone: Reason for referral (narrative)No [facility] for [facility] Summary Purpose Family History No Family History Records FoundNo Family History Records FoundNo Family History Records FoundNo Family History Records Found Advance Directives No Advanced Directives Records Found Advance Directive Response Recorded Date/ Time Living Will No September 07, 2016 6 :57pm Power of Shell Sieve Operator No September 07, 2016 6:57pm Documents on File Type Date Recorded 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 [facility]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 Atty 06/09/2023 [facility] [place] [employer]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 Latest Code Status on File Code Status Date Activated Date Inactivated Comments Full Code 06/09/2023 6:44 AM Question Answer Comments Plan of Care: Code Status Discussion Completed Decision Maker: Patient Reason for Referral Specialty Diagnoses / Procedures Referred By Jaziel valdes Referred To Contact Radiology Diagnoses Elevated PSA Procedures MR prostate with nicki boundaries Cody Graham MD [address] [place] [address] Referral ID Status Reason Start Date Expiration Date Visits Requested Visits Authorized [id number] Authorized Perform Procedure 04/22/2023 04/21/2024 1 1 Additional Source Comments (unrecognized sect ion and content) No Status Records FoundNo Status Records FoundNo Status Records FoundNo Status Records Found INFORMATION SOURCE (unrecogn ized section and content) DATE CREATED AUTHOR 05/12/2021 [facility] DATE CREATED AUTHOR AUTHOR'S ORGANIZ ATION 05/16/2023 [facility] DATE CREATED AUTHOR AUTHOR'S ORGANIZ ATION 01/10/2024 [facility] DATE CREATED AUTHOR AUTHOR'S ORGANIZ ATION 03/01/2025 [facility] Care Teams (unrecognized sec tion and content) Team Status: Active Member Role Status Dates Dr. Fidel Go III, MD Family Provider Active Dr. Carly Olvera DO Primary Care Provider Active Team Status: Inactive Member Role Status Dates Dr. Carly Olvera DO Primary Care Provide r, Attending Provider, Referring Provider Active Addressograph Operator Relationship Specialty Start Date End Date Carly Olvera DO [address] [place] [phone] PCP - General Family Medicine 06/09/23 Team [...] Specialty Diagnoses / Procedures Referred By Jaziel t Referred To Contact Radiology Diagnoses Elevated PSA Procedures MR prostate with nicki boundaries Cody Graham MD [address] [place] [id number] Referral ID Status Reason Start Date Expiration Date Visits Requested Visits Authorized [id number] Authorized Perform Procedure 04/22/2023 04/21/2024 1 1 Reason Comments MRI results Specialty Diagnoses / Procedures Referred By Jaziel t Referred To Contact Diagnoses Elevated PSA Elevated PSA [R97.20] Procedures CO PROSTATE NEEDLE BIOPSY ANY APPROACH CHG US TRANSRECTAL CHG US GUIDANCE NEEDLE PLACEMENT IMG S&I Biopsy Prostate Ultrasonography Transrectal Prostate Biopsy Prostate with Navigation Cody Graham MD [address] [place] [address] [id number] Referral ID Status Reason Start Date Expiration Date Visits Re quested Visits Authorized [id number] 1 1 Scheduled Active and Recently Administ ered Medications (unrecognized section and content) Medication Order 06/07/2023 06/08/2023 06/09/2023 dexAMETHasone (Decadron) injection 5 mg (COMPLETED) 5 mg, intravenous, Once, On e 06/09/23 at 0730, For 1 dose, Preprocedure 0728 (Given - Provid er: Eugenie Lezama RN) ondansetron (Zofran) injection 4 mg (COMPLETED) 4 mg, intravenous, Once, On Thu06/09/23 at 0730, For 1 dose, Preprocedure, When administering via IV Push, administer over 3-5 minutes. 0728 (Given - Provid er: Eugenie Lezama RN) Continuous Medication Order 06/07/2023 06/08/2023 06/09/2023 lactated Ringer's infusion 100 mL/hr, intravenous, Continuous, Starting on Thu06/09/23 at 0730, Preprocedure 0724 (New Bag - Prov ider: Eugenie Lezama RN)0859 (Stopped - Provider: Khushi Sherman RN) PRN Medication Order 06/07/2023 06/08/2023 06/09/2023 midazolam [...] BE BASED ON THE PRIMARY CLINICAL RECORDS. [facility] [employer] [facility]. provides no warranty or guarantee of the accuracy or completeness of information in this document.
[2025-03-11 11:24] LABS: Mucous, Urine 0 SEEN /hpf (<or=2+); Red Blood Cells-Urine 0 SEEN /hpf (0-5)
[2025-03-11 12:10] LABS: Color, Urine Yellow (Yellow); Glucose, Dipstick Normal (Normal); Ketone-Dipstick Negative (Negative); Leukocyte Esterase-Dipstick 25 /ul (Negative); Nitrite-Dipstick Negative (Negative); Occult Blood-Urine Negative /ul (Negative); Protein-Dipstick 15 mg/dl (Negative); Specific Gravity, Urine 1.015 (1.002-1.030); Urine Bilirubin Dipstick Negative (Negative)
[2025-03-11 12:19] LABS: Squamous Epithelial Cells - UA 0-5 SEEN /hpf (0-5)
== END | disposition home or self-care (01) ==
LOC: LAB 11:19
PROVIDERS: PCP Family Medicine; Referring Provider Family Medicine; Visit Provider Family Medicine
DX: R31.9 Hematuria, unspecified (principal); N41.9 Inflammatory disease of prostate, unspecified
CPT/HCPCS: 81001; 87086

== ENCOUNTER → 2025-04-18 | Outpatient (CLI) | payer MEDICARE, BC, SELFPAY ==
--- OUTSIDE RECORDS SUMMARY | 2025-04-18 18:42 | XMS RPT_ITS | CCD ---
Author Organization [facility] Care Team Providers Care Manager Logistic Name Role Phone Unavailable Primary Care Provider Unavailabl e CODY GRAHAM Attending Unavailable BARRY, CODY Hansen Attending Unavailable MalCarly hughes DO Primary Care Provider [phone] CODY GRAHAM Referring Unavailable CARLY OLVERA Primary Care Unavailable May GARBER, Dr. Carroll Primary Care Provider May GARBER, Dr. Carroll Attending Provider [phone] Naderys, Carly Attending Unavailable Malys, Carly Primary [...] every six hours for pain HYDROcodone-aceta minophen ([place]) 5-325 mg tablet Indications: Elevated PSA Take 1 tablet by mouth every 6 hours if needed for severe pain (7 - 10). 20 tablet 0 06/09/2023 Active Start: 06-09-2023 take 1 tablet by jamal th every six hours for pain HYDROcodone-acetaminophen ([place]) 5-325 mg tablet Indications: Elevated PSA Take [...] Absolute Lymph 1.36 X10 3/uL Normal 0.83-4.51 [facility] Comment on above: Performed By: #### L 100.0100 #### [facility] Laboratory [facility] [place], [address] Absolute Neut 5.0 X10 3/uL Normal 2.0-7.7 [facility] Comment on above: Performed By: #### L 100.0100 #### [facility] Laboratory [address] [place], [address] Basophils/100 WBC (Bld) 0.6 % Normal 0-1 [facility] Comment on above: Performed By: #### L 100.0100 #### [facility] Laboratory [address] [place], [address] Eosinophils/100 WBC (Bld) 0.9 % Normal 0-5 [facility] Comment on above: Performed By: #### L 100.0100 #### [facility] Laboratory [address] [place], [address] Erythrocyte distribution width (RBC) [Ratio] 12.6 % Normal 11.6-14.6 [facility] Comment on above: Performed By: #### L 100.0100 #### [facility] Laboratory [address] [place], [address] Hematocrit (Bld) [Volume fraction] 44.3 % Normal 40-54 [facility] Comment on above: Performed By: #### L 100.0100 #### [facility] Laboratory [address] [place], [address] Hemoglobin (Bld) [Mass/Vol] 15.8 g/dL Normal 13.0-16.5 [facility] Comment on above: Performed By: #### L 100.0100 #### [facility] Laboratory [address] [place], [address] IG% 0.300 Normal 0.0-0.9 [facility] Comment on above: Result Comment: IG% - Immature Granulocytes (promyelocytes, myelocytes and metamyelocytes) > 1% indicates that a LEFT SHIFT is Present. Performed By: #### L 100.0100 #### [facility] Laboratory [address] [place], [address] Lymphocytes/100 WBC (Bld) 19.9 % Normal 19-41 [facility] Comment on above: Performed By: #### L 100.0100 #### [facility] Laboratory [address] [place], [address] MCH (RBC) [Entitic mass] 30.0 pg Normal 27.0-32.0 [facility] Comment on above: Performed By: #### L 100.0100 #### [facility] Laboratory [address] [place], [address] MCHC (RBC) [Mass/Vol] 35.7 g/dL Normal 32-36 [facility] Comment on above: Performed By: #### L 100.0100 #### [facility] Laboratory [address] [place], [address] MCV (RBC) [Entitic vol] 84.1 fL Normal 80-94 [facility] Comment on above: Performed By: #### L 100.0100 #### [facility] Laboratory [address] [place], [address] Monocytes/100 WBC (Bld) 5.5 % Normal 0-10 [facility] Comment on above: Performed By: #### L 100.0100 #### [facility] Laboratory [address] [place], [address] Neutrophils/100 WBC (Bld) 72.8 % High 47-70 [facility] Comment on above: Performed By: #### L 100.0100 #### [facility] Laboratory [address] [place], [address] Nucleated RBC (Bld) [#/Vol] 0 10*3/uL Normal 0-5 [facility] Comment on above: Performed By: #### L 100.0100 #### [facility] Laboratory [address] [place], [address] Platelet mean volume (Bld) [Entitic vol] 11.4 fL Normal 6.2-12.0 [facility] Comment on above: Performed By: #### L 100.0100 #### [facility] Laboratory [address] [place], [address] Platelets (Bld) [#/Vol] 179 10*3/uL Normal 150-450 [facility] Comment on above: Performed By: #### L 100.0100 #### [facility] Laboratory [address] [place], [address] RBC (Bld) [#/Vol] 5.27 10*6/uL Normal 4.6-6.2 [facility] Comment on above: Performed By: #### L 100.0100 #### [facility] Laboratory [address] [place], [address] RDW SD 38.4 fl Normal 35.1-43.9 [facility] Comment on above: Performed By: #### L 100.0100 #### [facility] Laboratory [address] [place], [address] WBC (Bld) [#/Vol] 6.9 10*3/uL Normal 4.4-11.0 [facility] Comment on above: Performed By: #### L 100.0100 #### [facility] Laboratory [address] [place], [address] Cytology, Body Fluid / CSFon 02-25-2025 CYTOLOGY,BF/CSF SEE PATHOLOGY REPORT Normal [facility] Comment on above: Order Comment: URINE Result Comment: Spec imen submitted to Anatomical Pathology Department for testing. Performed By: #### L 350.1000 #### [facility] Laboratory [address] [place], [address] Pap Stain (control)on 2024 Pap Stain (control) Patient Age/Sex Location Account Attending Physician ROM SINHA 70/M [facility] [id number] Dr. Carly Olvera DO Specimen: [id number] Received: 02/25/25 Status: DAYO Sandra Num: [id number] Spec Type: CYSPIN FL Subm Dr: Dr. [...] and and designated per the requisition as urine. Submitted for cytology preparation. Mr 02/27/2025 CPT: 95344 Signed (signatur e on file) Dr. Rebeka Flores MD 02/28/25 0955 Normal [facility] Comment on above: Performed By: #### P PAPS #### [facility] Laboratory [address] [place], [address] Microalb:Creat Ratio,Random URon 10-06-2024 MALB:CREAT 32.7 mg/g CRE Normal [facility] Comment on above: Result Comment: AMENDED REPORT 10/06/24 2748 MALB:CREAT previously reported as: 327.1 mg/g CRE Performed By: #### L 501.9985, L500.4100, L100.0100, L502.0250, L501.9910, L500.4050 #### [facility] Laboratory [address] [place], [place], [address] Hemoglobin A1con 07-12-2024 HbA1c (Bld) [Mass fraction] 6.6 % Normal <=5.6 [facility] Comment on above: Performed By: #### L 501.9985, L500.4100, L100.0100, L502.0250, L501.9910, L500.4050 #### [facility] Laboratory [address] [place], [place], [id number] Absolute neutrophil countOrd ered By: Carly Olvera on 07-11-2024 Neutrophils (Bld) [#/Vol] 4.1 10*3/uL 2.0-7.7 [facility] Albumin DL <= 20 mg/L (U) [M ass/Vol]Ordered By: Carly Olvera on 07-11-2024 Urine Random Microalbumin 74.9 mg/L NO RANGE EST. [facility] Anion gap in Serum or Plasma Ordered By: Carly Olvera on 07-11-2024 Anion gap [Moles/Vol] 11 mmol/L 5-15 [facility] BUN/creatinine ratioOrdered By: Carly Olvera on 07-11-2024 Urea nitrogen/Creatinine [Mass ratio] 14.4 mg/mg 10-20 [facility] Basophil percentageOrdered B y: Carly Olvera on 07-11-2024 Basophils/100 WBC (Bld) 0.7 % 0-1 [facility] Bilirubin, totalOrdered By: Carly Olvera on 07-11-2024 Bilirubin [Mass/Vol] 0.36 mg/dL 0.00-1.30 [facility] CBC W/Diff, Automatedon 06-19 Absolute Lymph 0.86 X10 3/uL Normal 0.83-4.51 [facility] Comment on above: Performed By: #### L 501.9985, L500.4100, L100.0100, L502.0250, L501.9910, L500.4050 #### [facility] [address] [place], [address] Absolute Neut 4.1 X10 3/uL Normal 2.0-7.7 [facility] Comment on above: Performed By: #### L 501.9985, L500.4100, L100.0100, L502.0250, L501.9910, L500.4050 #### [facility] Laboratory [address] [place], [address] Basophils/100 WBC (Bld) 0.7 % Normal 0-1 [facility] Comment on above: Performed By: #### L 501.9985, L500.4100, L100.0100, L502.0250, L501.9910, L500.4050 #### [facility] Laboratory [address] [place], [address] Eosinophils/100 WBC (Bld) 0.6 % Normal 0-5 [facility] Comment on above: Performed By: #### L 501.9985, L500.4100, L100.0100, L502.0250, L501.9910, L500.4050 #### [facility] Laboratory [address] [place], [address] Erythrocyte distribution width (RBC) [Ratio] 16.2 % High 11.6-14.6 [facility] Comment on above: Performed By: #### L 501.9985, L500.4100, L100.0100, L502.0250, L501.9910, L500.4050 #### [facility] Laboratory [address] [place], [address] Hematocrit (Bld) [Volume fraction] 40.2 % Normal 40-54 [facility] Comment on above: Performed By: #### L 501.9985, L500.4100, L100.0100, L502.0250, L501.9910, L500.4050 #### [facility] Laboratory [address] [place], [address] Hemoglobin (Bld) [Mass/Vol] 11.8 g/dL Low 13.0-16.5 [facility] Comment on above: Performed By: #### L 501.9985, L500.4100, L100.0100, L502.0250, L501.9910, L500.4050 #### [facility] Laboratory [address] [place], [address] IG% 0.400 Normal 0.0-0.9 [facility] Comment on above: Result Comment: IG% - Immature Granulocytes (promyelocytes, myelocytes and metamyelocytes) > 1% indicates that a LEFT SHIFT is Present. Performed By: #### L 501.9985, L500.4100, L100.0100, L502.0250, L501.9910, L500.4050 #### [facility] Laboratory [address] [place], [address] Lymphocytes/100 WBC (Bld) 16.0 % Low 19-41 [facility] Comment on above: Performed By: #### L 501.9985, L500.4100, L100.0100, L502.0250, L501.9910, L500.4050 #### [facility] Laboratory [address] [place], [address] MCH (RBC) [Entitic mass] 21.8 pg Low 27.0-32.0 [facility] Comment on above: Performed By: #### L 501.9985, L500.4100, L100.0100, L502.0250, L501.9910, L500.4050 #### [facility] Laboratory [address] [place], [address] MCHC (RBC) [Mass/Vol] 29.4 g/dL Low 32-36 [facility] Comment on above: Performed By: #### L 501.9985, L500.4100, L100.0100, L502.0250, L501.9910, L500.4050 #### [facility] Laboratory [address] [place], [address] MCV (RBC) [Entitic vol] 74.3 fL Low 80-94 [facility] Comment on above: Performed By: #### L 501.9985, L500.4100, L100.0100, L502.0250, L501.9910, L500.4050 #### [facility] Laboratory [address] [place], [address] Monocytes/100 WBC (Bld) 5.2 % Normal 0-10 [facility] Comment on above: Performed By: #### L 501.9985, L500.4100, L100.0100, L502.0250, L501.9910, L500.4050 #### [facility] Laboratory [address] [place], [address] Neutrophils/100 WBC (Bld) 77.1 % High 47-70 [facility] Comment on above: Performed By: #### L 501.9985, L500.4100, L100.0100, L502.0250, L501.9910, L500.4050 #### [facility] Laboratory [address] [place], [address] Nucleated RBC (Bld) [#/Vol] 0 10*3/uL Normal 0-5 [facility] Comment on above: Performed By: #### L 501.9985, L500.4100, L100.0100, L502.0250, L501.9910, L500.4050 #### [facility] Laboratory [address] [place], [address] Platelet mean volume (Bld) [Entitic vol] 10.7 fL Normal 6.2-12.0 [facility] Comment on above: Performed By: #### L 501.9985, L500.4100, L100.0100, L502.0250, L501.9910, L500.4050 #### [facility] Laboratory [address] [place], [address] Platelets (Bld) [#/Vol] 172 10*3/uL Normal 150-450 [facility] Comment on above: Performed By: #### L 501.9985, L500.4100, L100.0100, L502.0250, L501.9910, L500.4050 #### [facility] Laboratory [address] [place], [address] RBC (Bld) [#/Vol] 5.41 10*6/uL Normal 4.6-6.2 [facility] Comment on above: Performed By: #### L 501.9985, L500.4100, L100.0100, L502.0250, L501.9910, L500.4050 #### [facility] Laboratory [address] [place], [place], [id number] RDW SD 43.2 fl Normal 35.1-43.9 [facility] Comment on above: Performed By: #### L 501.9985, L500.4100, L100.0100, L502.0250, L501.9910, L500.4050 #### [facility] Laboratory [address] [place], [place], [address] WBC (Bld) [#/Vol] 5.4 10*3/uL Normal 4.4-11.0 [facility] Comment on above: Performed By: #### L 501.9985, L500.4100, L100.0100, L502.0250, L501.9910, L500.4050 #### [facility] Laboratory [address] [place], [place], [address] Calculated very low density lipoprotein (VLDL) cholesterol measurementOrdered By: Carly Olvera on 07-11-2024 VLDL Cholesterol 23 mg/dL 5-40 [facility] Carbon dioxide, total [Moles /volume] in Central venous bloodOrdered By: Carly Olvera on 07-11-2024 CO2 [Moles/Vol] 23.3 mmol/L 21.0-32.0 [facility] Chloride assayOrdered By: Evelina Olvera on 07-11-2024 Chloride [Moles/Vol] 107 mmol/L 98-108 [facility] Comprehensive Metabolic Prof ilon 07-11-2024 Albumin [Mass/Vol] 4.4 g/dL Normal 3.4-4.8 [facility] Comment on above: Performed By: #### L 501.9985, L500.4100, L100.0100, L502.0250, L501.9910, L500.4050 #### [facility] Laboratory [address] [place], [address] Albumin/Globulin [Mass ratio] 1.8 {ratio} Normal 0.9-2.4 [facility] Comment on above: Performed By: #### L 501.9985, L500.4100, L100.0100, L502.0250, L501.9910, L500.4050 #### [facility] Laboratory [address] [place], [address] ALK PHOS 71 U/L Normal 40-129 [facility] Comment on above: Performed By: #### L 501.9985, L500.4100, L100.0100, L502.0250, L501.9910, L500.4050 #### [facility] Laboratory [address] [place], [address] ALT [Catalytic activity/Vol] 12 U/L Normal <=46 [facility] Comment on above: Performed By: #### L 501.9985, L500.4100, L100.0100, L502.0250, L501.9910, L500.4050 #### [facility] Laboratory [address] [place], [address] AST [Catalytic activity/Vol] 16 U/L Normal <=37 [facility] Comment on above: Performed By: #### L 501.9985, L500.4100, L100.0100, L502.0250, L501.9910, L500.4050 #### [facility] Laboratory [address] [place], [address] Bilirubin [Mass/Vol] 0.36 mg/dL Normal 0.00-1.30 [facility] Comment on above: Performed By: #### L 501.9985, L500.4100, L100.0100, L502.0250, L501.9910, L500.4050 #### [facility] [address] [place], [address] BUN/CRE 14.4 RATIO Normal 10-20 [facility] Comment on above: Performed By: #### L 501.9985, L500.4100, L100.0100, L502.0250, L501.9910, L500.4050 #### [facility] [address] [place], [address] Calcium [Mass/Vol] 9.4 mg/dL Normal 7.6-11.0 [facility] Comment on above: Performed By: #### L 501.9985, L500.4100, L100.0100, L502.0250, L501.9910, L500.4050 #### [facility] [address] [place], [address] Chloride [Moles/Vol] 107 mmol/L Normal 98-108 [facility] Comment on above: Performed By: #### L 501.9985, L500.4100, L100.0100, L502.0250, L501.9910, L500.4050 #### [facility] [address] [place], [address] CO2 [Moles/Vol] 23.3 mmol/L Normal 21.0-32.0 [facility] Comment on above: Performed By: #### L 501.9985, L500.4100, L100.0100, L502.0250, L501.9910, L500.4050 #### [facility] [address] [place], [address] Creatinine [Mass/Vol] 0.94 mg/dL Normal 0.70-1.20 [facility] Comment on above: Performed By: #### L 501.9985, L500.4100, L100.0100, L502.0250, L501.9910, L500.4050 #### [facility] [address] [place], [address] GAP 11 Normal 5-15 [facility] Comment on above: Performed By: #### L 501.9985, L500.4100, L100.0100, L502.0250, L501.9910, L500.4050 #### [facility] [address] [place], [address] GFR/1.73 sq M.predicted among non-blacks MDRD (S/P/Bld) [Vol rate/Area] 87 mL/min/{1.73_m2} Normal >60 [facility] Comment on above: Result Comment: mL/m in/1.73m2 CKD-EPI Creatinine Equation (2020) Performed By: #### L 501.9985, L500.4100, L100.0100, L502.0250, L501.9910, L500.4050 #### [facility] [address] [place], [address] Globulin (S) [Mass/Vol] 2.5 g/dL Normal 2.2-4.2 [facility] Comment on above: Performed By: #### L 501.9985, L500.4100, L100.0100, L502.0250, L501.9910, L500.4050 #### [facility] [address] [place], [address] Glucose [Mass/Vol] 156 mg/dL High 70-99 [facility] Comment on above: Performed By: #### L 501.9985, L500.4100, L100.0100, L502.0250, L501.9910, L500.4050 #### [facility] [address] [place], [address] Potassium [Moles/Vol] 4.5 mmol/L Normal 3.3-5.1 [facility] Comment on above: Performed By: #### L 501.9985, L500.4100, L100.0100, L502.0250, L501.9910, L500.4050 #### [facility] [address] [place], [address] Sodium [Moles/Vol] 141 mmol/L Normal 133-145 [facility] Comment on above: Performed By: #### L 501.9985, L500.4100, L100.0100, L502.0250, L501.9910, L500.4050 #### [facility] [address] [place], [address] T PROT 6.8 g/dL Normal 5.9-8.4 [facility] Comment on above: Performed By: #### L 501.9985, L500.4100, L100.0100, L502.0250, L501.9910, L500.4050 #### [facility] [address] [place], [address] Urea nitrogen [Mass/Vol] 14 mg/dL Normal 4-19 [facility] Comment on above: Performed By: #### L 501.9985, L500.4100, L100.0100, L502.0250, L501.9910, L500.4050 #### [facility] [address] [place], [address] Creatinine Unsp time (U) [Ma ss/Vol]Ordered By: Carly Olvera on 07-11-2024 Creatinine (U) [Mass/Vol] 229.00 mg/dL 39.00-259.00 [facility] Eosinophil percentageOrdered By: Carly Olvera on 07-11-2024 Eosinophils/100 WBC (Bld) 0.6 % 0-5 [facility] Erythrocyte distribution wid th ratioOrdered By: Carly Olvera on 07-11-2024 Erythrocyte distribution width (RBC) [Ratio] 16.2 % High 11.6-14.6 [facility] Erythrocyte distribution wid th standard deviationOrdered By: Carly Olvera on 07-11-2024 Erythrocyte distribution width (RBC) [Entitic vol] 43.2 fL 35.1-43.9 [facility] GFR/1.73 sq M.predicted dmitri g non-blacks MDRD (S/P/Bld) [Vol rate/Area]Ordered By: Carly Olvera on 07-11-2024 Estimated GFR (MDRD) Non-Af Amer 87 >60 [facility] Comment on above: mL/min/1.73m2 CKD-EP I Creatinine Equation (2020) Hematocrit Auto (Bld) [Volum e fraction]Ordered By: Carly Olvera on 07-11-2024 Hematocrit (Bld) [Volume fraction] 40.2 % 40-54 [facility] Hemoglobin A1c percentageOrd ered By: Carly Olvera on 07-11-2024 HbA1c (Bld) [Mass fraction] 6.6 % >5.7 [facility] Hemoglobin measurementOrdere d By: Carly Olvera on 07-11-2024 Hemoglobin (Bld) [Mass/Vol] 11.8 g/dL Low 13.0-16.5 [facility] Immature granulocytes/100 WB C Auto (Bld)Ordered By: Carly Olvera on 07-11-2024 Immature granulocytes/100 WBC (Bld) 0.400 % 0.0-0.9 [facility] Comment on above: IG% - Immature Granu locytes (promyelocytes, myelocytes and metamyelocytes) > 1% indicates that a LEFT SHIFT is Present. LDL calc ser/plasOrdered By: Carly Olvera on 07-11-2024 LDL Cholesterol, Calculated 42 mg/dL [facility] Comment on above: Pmjfjncssf=470-195 m g/dL & Higher Biem=453 mg/dL or greater Laboratory - Chemistry and C hemistry - challengeOrdered By: Carly Olvera on 07-11-2024 AST [Catalytic activity/Vol] 16 U/L <38 [facility] Lipid Profileon 07-11-2024 CHOL:HDL 2.47 Normal [facility] Comment on above: Performed By: #### L 501.9985, L500.4100, L100.0100, L502.0250, L501.9910, L500.4050 #### [facility] [address] [place], [address] Cholesterol [Mass/Vol] 109 mg/dL Normal <=200 [facility] Comment on above: Result Comment: Chol esterol level, Desirable <200 mg/dL Borderline high cholesterol 200-239 mg/dL High cholesterol >=240 mg/dL Recommendations of the NCEP Adult Treatment Panel for the following risk-cutoff thresholds for the [place] population. Performed By: #### L 501.9985, L500.4100, L100.0100, L502.0250, L501.9910, L500.4050 #### [facility] [address] [place], [address] Cholesterol in HDL [Mass/Vol] 44 mg/dL Normal [facility] Comment on above: Result Comment: Jenny onal Cholesterol Education Program (NCEP) guidelines: <40 mg/dL: Low HDL-cholesterol (major risk factor for CHD) >= 60 mg/dL: High HDL-cholesterol (negative risk factor for CHD) HDL-cholesterol is affected by a number of factors, e.g. smoking, exercise, hormones, sex and age. Performed By: #### L 501.9985, L500.4100, L100.0100, L502.0250, L501.9910, L500.4050 #### [facility] [address] [place], [address] Cholesterol in LDL [Mass/Vol] 42 mg/dL Normal [facility] Comment on above: Result Comment: Bord mmtrsn=818-200 mg/dL Higher Peni=670 mg/dL or greater Performed By: #### L 501.9985, L500.4100, L100.0100, L502.0250, L501.9910, L500.4050 #### [facility] [address] [place], [address] Cholesterol in VLDL [Mass/Vol] 23 mg/dL Normal 5-40 [facility] Comment on above: Performed By: #### L 501.9985, L500.4100, L100.0100, L502.0250, L501.9910, L500.4050 #### [facility] [address] [place], [place], [id number] Triglyceride [Mass/Vol] 115 mg/dL Normal [facility] [place] Comment on above: Result Comment: The drugs N-Acetylcysteine and Metamizole may falsely depress this assay. Normal range: <150 mg/dL Borderline High: 150-199 mg/dL High: 200-499 mg/dL Very High: >500 mg/dL Performed By: #### L 501.9985, L500.4100, L100.0100, L502.0250, L501.9910, L500.4050 #### [facility] [address] [place], [place], [id number] Lymphocytes Auto (Unsp spec) [#/Vol]Ordered By: Carly Olvera on 07-11-2024 Lymphocytes (Bld) [#/Vol] 0.86 10*3/uL 0.83-4.51 [facility] Lymphocytes/100 WBC Auto (Un sp spec)Ordered By: Carly Olvera on 07-11-2024 Lymphocytes/100 WBC (Bld) 16.0 % Low 19-41 [facility] MCV (mean corpuscular volume ) determinationOrdered By: Carly Olvera on 07-11-2024 MCV (RBC) [Entitic vol] 74.3 fL Low 80-94 [facility] Mean corpuscular hemoglobin (MCH) determinationOrdered By: Carly Olvera on 07-11-2024 MCH (RBC) [Entitic mass] 21.8 pg Low 27.0-32.0 [facility] Mean corpuscular hemoglobin concentration (MCHC) determinationOrdered By: Carly Olvera on 07-11-2024 MCHC (RBC) [Mass/Vol] 29.4 g/dL Low 32-36 [facility] Mean platelet volume determi nationOrdered By: Carly Olvera on 07-11-2024 Platelet mean volume (Bld) [Entitic vol] 10.7 fL 6.2-12.0 [facility] Microalbumin/creat ratio urO rdered By: Carly Olvera on 07-11-2024 Urine Microalbumin/Creatinine Ratio 327.1 mg/g CRE [facility] Monocyte percentageOrdered B y: Carly Olvera on 07-11-2024 Monocytes/100 WBC (Bld) 5.2 % 0-10 [facility] [place] Neutrophil percentageOrdered By: Carly Olvera on 07-11-2024 Neutrophils/100 WBC (Bld) 77.1 % High 47-70 [facility] Nucleated red blood cell per centageOrdered By: Carly Olvera on 07-11-2024 Nucleated RBC/100 WBC (Bld) [Ratio] 0 % 0-5 [facility] PSA, total screeningOrdered By: Carly Olvera on 07-11-2024 Prostate Specific Antigen Screen 6.48 ng/mL High 0.02-4.00 [facility] Comment on above: This test was perfor [...] 07-11-2024 PSA,TOT SCREEN 6.48 ng/mL High 0.02-4.00 [facility] Comment on above: Result Comment: This test was performed using the [employer] tPSA method. Measured values of a patient??sample can vary depending on the testing procedure used. PSA values determined on patient samples by different testing procedures cannot be used interchangeably. If there is a change in PSA assays while monitoring therapy, sequential testing should be performed to confirm baseline values. Performed By: #### L 501.9985, L500.4100, L100.0100, L502.0250, L501.9910, L500.4050 #### [facility] [address] [place], [address] Platelet countOrdered By: Evelina Doesaul on 07-11-2024 Platelets (Bld) [#/Vol] 172 10*3/uL 150-450 [facility] Potassium (Unsp spec) [Mass/ Vol]Ordered By: Carly Nadersaul on 07-11-2024 Potassium [Moles/Vol] 4.5 mmol/L 3.3-5.1 [facility] RBC Auto (Bld) [#/Vol]Ordere d By: Carly Olvera on 07-11-2024 RBC (Bld) [#/Vol] 5.41 10*6/uL 4.6-6.2 [facility] Screening total cholesterol/ high density lipoprotein (HDL) cholesterol ratioOrdered By: Carly Olvera on 07-11-2024 Cholesterol.total/Choles terol in HDL [Mass ratio] 2.47 {ratio} [facility] Serum creatinine measurement (mass/volume)Ordered By: Carly Olvera on 07-11-2024 Creatinine [Mass/Vol] 0.94 mg/dL 0.70-1.20 [facility] Serum globulin measurementOr dered By: Carly Olvera on 07-11-2024 Globulin (S) [Mass/Vol] 2.5 g/dL 2.2-4.2 [facility] [place] Serum glucose measurement (m ass/volume)Ordered By: Carly Olvera on 07-11-2024 Glucose [Mass/Vol] 156 mg/dL High 70-99 [facility] Serum or plasma alanine gaytan otransferase (ALT) measurementOrdered By: Carly Olvera on 07-11-2024 ALT [Catalytic activity/Vol] 12 U/L <47 [facility] Serum or plasma albumin nereyda urement (mass/volume)Ordered By: Carly Olvera on 07-11-2024 Albumin [Mass/Vol] 4.4 g/dL 3.4-4.8 [facility] Serum or plasma albumin/glob ulin mass ratioOrdered By: Carly Olvera on 07-11-2024 Albumin/Globulin [Mass ratio] 1.8 {ratio} 0.9-2.4 [facility] Serum or plasma alkaline sherwin sphatase measurementOrdered By: Carly Olvera on 07-11-2024 ALP [Catalytic activity/Vol] 71 U/L 40-129 [facility] Serum or plasma calcium nereyda urement (mass/volume)Ordered By: Carly Olvera on 07-11-2024 Calcium [Mass/Vol] 9.4 mg/dL 7.6-11.0 [facility] Serum or plasma cholesterol in HDL measurement (mass/volume)Ordered By: Carly Olvera on 07-11-2024 Cholesterol in HDL [Mass/Vol] 44 mg/dL >40 [facility] Comment on above: National Cholesterol Education Program (NCEP) guidelines:<40 mg/dL: Low HDL-cholesterol (major risk factor for CHD)>= 60 mg/dL: High HDL-cholesterol (negative risk factor for CHD)HDL-cholesterol is affected by a number of factors, e.g. smoking, exercise, hormones, sex and age. Serum or plasma cholesterol measurement (mass/volume)Ordered By: Carly Olvera on 07-11-2024 Cholesterol [Mass/Vol] 109 mg/dL <201 [facility] Comment on above: Cholesterol level, D esirable <200 mg/dLBorderline high cholesterol 200-239 mg/dLHigh cholesterol >=240 mg/dLRecommendations of the NCEP Adult Treatment Panel for the following risk-cutoff thresholds for the [place] population. Serum or plasma urea nitroge n measurement (mass/volume)Ordered By: Carly Olvera on 07-11-2024 Urea nitrogen [Mass/Vol] 14 mg/dL 4-19 [facility] Sodium levelOrdered By: Carly Olvera on 07-11-2024 Sodium [Moles/Vol] 141 mmol/L 133-145 [facility] Total proteinOrdered By: Francisca Olvera on 07-11-2024 Protein [Mass/Vol] 6.8 g/dL 5.9-8.4 [facility] Triglycerides measurementOrd ered By: Carly Olvera on 07-11-2024 Triglyceride [Mass/Vol] 115 mg/dL <199 [facility] [place] Comment on above: The drugs N-Acetylcy steine and Metamizole may falsely depress this assay. Normal range: <150 mg/dLBorderline High: 150-199 mg/dLHigh: 200-499 mg/dLVery High: >500 mg/dL White blood cell (WBC) count Ordered By: Carly Olvera on 07-11-2024 WBC (Bld) [#/Vol] 5.4 10*3/uL 4.4-11.0 [facility] Glucose Test strip manual (B ld) [Mass/Vol]on 06-09-2023 Glucose [Mass/Vol] 147 mg/dL High 74 - 99 mg/dL [facility] Interpretation and review of laboratory results Abnormal [facility] Glucose [Mass/Vol] 147 mg/dL High 74-99 [facility] Comment on above: Performed By: #### 2 [id number] #### PHILLIPS MARIAMA ([id number]) [facility] ([facility]) [address] [place] [address] Surgical pathology studyon 0 06-09-2023 Surgical pathology study Pathology report.total SEE COMMENT Surgical Pathology Case: [id number] Authorizing Provider: Cody Graham MD Collected: 06/09/2023 0750 Ordering Location: [facility] Received: 06/09/2023 1521 Center [place] Pathologist: Addison [...] the patient's name and hospital number and right prostate, are multiple cylindrical fragments of blue-gates soft tissue ranging from 1.2 cm to 2.0 cm in length by less than 0.1 cm in diameter. The specimen is submitted in toto in two cassette. RCC B: Received in formalin, labeled with the patient's name and hospital number and area of interest #1, are multiple cylindrical fragments of blue-gates soft tissue ranging from 0.3 cm to 2.9 cm in length by less than 0.1 cm in diameter. The specimen is submitted in toto in one cassette. RCC C: Received in formalin, labeled with the patient's name and hospital number and left prostate needle biopsy, are multiple cylindrical fragments of gates soft tissue ranging from 1.0 cm to 2.5 cm in length by less than 0.1 cm in diameter. The specimen is submitted in toto in two cassettes. RCC Normal [facility] Comment on above: Order Comment: Pre-o p diagnosis: Elevated PSA [R97.20] MR PROSTATE NICKI BOUNDARIESon 04-27-2023 MR PROSTATE NICKI BOUNDARIES Interpreted By: Colby Chin, and Socrates Barahona STUDY: MR PROSTATE NICKI BOUNDARIES; 04/27/2023 10:47 am INDICATION: Signs/Symptoms:elev ated PSA. Most recent PSA 7.18 per clinical documentation COMPARISON: None. ACCESSION NUMBER(S): [id number] ORDERING CLINICIAN: CODY GRAHAM TECHNIQUE: Multiplanar MRI of the pelvis was obtained including axial, sagittal and coronal T2 weighted SSFSE, axial and sagittal T2 FSE, axial DWI, pre and post gadolinium dynamic T1 GRE sequences. Multiparametric analysis was performed. 20 mL Dotarem was administered intravenously without immediate complications. 3D post-processing was performed using [employer], on an independent workstation, for the purpose of enabling fusion with ultrasound, and provided it for review. FINDINGS: PROSTATE VOLUME: The prostate measures 5.6 cm x 5.1 cm x 6.2 cm in [id number], anterior-posterior and craniocaudal dimension. Prostate weight is [...] as stated. This study was interpreted at [facility], [place], [place]. MACRO: None Signed by: Colby Chin 04/30/2023 7:24 PM Dictation workstation: [id number] [facility] No Panel InformationOrdered By: Carly Olvera on 02-16-2023 Prostate Specific Antigen Total 7.18 ng/mL 0.0-4.0 [facility] Comment on above: This test was perfor med using the TPSA assay method for the[employer] chemistry system. Values obtained with differentassay methods cannot be used interchangably.When changing PSA assays in the course of monitoring apatient, additional sequential testing should be carriedout to confirm baseline values. Whole blood hemoglobin A1c/t otal hemoglobin ratio (mass fraction)Ordered By: Carly Olvera on 02-16-2023 HbA1c (Bld) [Mass fraction] 6.0 % 3.8-5.6 [facility] Comment on above: Normal < 5.7 % Predi abetic 5.7 - 6.4 % Diabetic >or= 6.5 % Please note range changes. Absolute lymphocyte countOrd ered By: Dr. Olvera on 08-12-2022 Lymphocytes Auto (Unsp spec) [#/Vol] 1.17 10*3/uL 0.83-4.51 [facility] Basophil percentageOrdered B y: Dr. Olvera on 08-12-2022 Basophils/100 WBC (Bld) 0.3 % 0-1 [facility] [place] Bilirubin [Mass/Vol] 0.50 mg/dL 0.20-1.00 [facility] Comment on above: For patients on eltr ombopag therapy, use of Dimension [place] TBIL is not recommended. Chloride [Moles/Vol] 105 mmol/L 98-107 [facility] Cholesterol [Mass/Vol] 104 mg/dL <200 [facility] Comment on above: <200 mg/dL Desirable 200-240 mg/dL Borderline >240 mg/dL High Risk Eosinophils/100 WBC (Bld) 0.4 % 0-5 [facility] Glucose [Mass/Vol] 136 mg/dL 74-106 [facility] Comment on above: Fasting Glucose resu lt greater than or equal to 126 mg/dL suggests DIABETES MELLITUS per A.D.A. criteria. Neutrophils (Bld) [#/Vol] 5.2 10*3/uL 2.0-7.7 [facility] Neutrophils/100 WBC (Bld) 75.8 % 47-70 [facility] Potassium [Moles/Vol] 3.6 mmol/L 3.5-5.1 [facility] Protein [Mass/Vol] 7.6 g/dL 6.4-8.2 [facility] Sodium [Moles/Vol] 137 mmol/L 136-145 [facility] Triglyceride [Mass/Vol] 123 mg/dL <199 [facility] Comment on above: The drugs N-Acetylcy steine and Metamizole may falsely depress this assay.Serum Triglycerides Reference Interval Normal <150 mg/dL Borderline high 150 - 199 mg/dL High 200 - 499 mg/dL Very High > or = 500 mg/dL WBC (Bld) [#/Vol] 6.8 10*3/uL 4.4-11.0 [facility] Blood erythrocytes count (nu mber/volume)Ordered By: Dr. Olvera on 08-12-2022 RBC (Bld) [#/Vol] 5.20 10*6/uL 4.6-6.2 [facility] Blood hemoglobin measurement (mass/volume)Ordered By: Dr. Olvera on 08-12-2022 Hemoglobin (Bld) [Mass/Vol] 14.9 g/dL 13.0-16.5 [facility] Blood lymphocytes/100 leukoc ytesOrdered By: Dr. Olvera on 08-12-2022 Lymphocytes/100 WBC (Bld) 17.2 % 19-41 [facility] Blood monocytes/100 leukocyt esOrdered By: Dr. Olvera on 08-12-2022 Monocytes/100 WBC (Bld) 5.9 % 0-10 [facility] Blood platelet mean volumeOr dered By: Dr. Olvera on 08-12-2022 Platelet mean volume (Bld) [Entitic vol] 12.1 fL 6.2-12.0 [facility] Determination of erythrocyte mean corpuscular volume (MCV)Ordered By: Dr. Olvera on 08-12-2022 MCV (RBC) [Entitic vol] 86.3 fL 80-94 [facility] [place] Hematocrit Auto (Bld) [Volum e fraction]Ordered By: Dr. Olvera on 08-12-2022 Hematocrit (Bld) [Volume fraction] 44.9 % 40-54 [facility] Iron measurement (mass/mass) Ordered By: Dr. Olvera on 08-12-2022 Iron (Unsp spec) [Mass/Mass] 72 ug/dL 65-175 [facility] - Chemistry and C hemistry - challengeOrdered By: Dr. Olvera on 08-12-2022 ALP [Catalytic activity/Vol] 89 U/L 45-117 [facility] ALT [Catalytic activity/Vol] 27 U/L 16-61 [facility] CO2 [Moles/Vol] 27.0 mmol/L 21.0-32.0 [facility] Cobalamin (Vitamin B12) [Mass/Vol] 936 pg/mL 211-911 [facility] Globulin (S) [Mass/Vol] 3.6 g/dL 2.2-4.2 [facility] [place] Urea nitrogen/Creatinine [Mass ratio] 17.1 mg/mg 10-20 [facility] - Hematology and Cell countsOrdered By: Dr. Olvera on 08-12-2022 Erythrocyte distribution width (RBC) [Entitic vol] 39.8 fL 35.1-43.9 [facility] Erythrocyte distribution width (RBC) [Ratio] 12.8 % 11.6-14.6 [facility] Immature granulocytes/100 WBC (Bld) 0.400 % 0.0-0.9 [facility] Comment on above: IG% - Immature Granu locytes (promyelocytes, myelocytes and metamyelocytes) > 1% indicates that a LEFT SHIFT is Present. MCH (RBC) [Entitic mass] 28.7 pg 27.0-32.0 [facility] Nucleated RBC/100 WBC (Bld) [Ratio] 0 % 0-5 [facility] MCHC Auto (RBC) [Mass/Vol]Or dered By: Dr. Olvera on 08-12-2022 MCHC (RBC) [Mass/Vol] 33.2 g/dL 32-36 [facility] No Panel InformationOrdered By: Dr. Olvera on 08-12-2022 Estimated GFR (MDRD) Amer 96 mL/min >60 [facility] Comment on above: GFR Calc Estimated GFR (MDRD) Non-Af Amer 79 mL/min >60 [facility] Comment on above: Non- GFR Calc Prostate Specific Antigen Screen 5.16 ng/mL 0.00-4.00 [facility] Comment on above: This test was perfor med using the TPSA assay method for [employer] system. Values obtained with differentassay methods cannot be used interchangably.When changing PSA assays in the course of monitoring apatient, additional sequential testing should be carriedout to confirm baseline values. Urine Microalbumin/Creatinine Ratio 7.1 mg/g CRE <30 [facility] Platelets bldOrdered By: Dr. Olvera on 08-12-2022 Platelets (Bld) [#/Vol] 158 10*3/uL 150-450 [facility] Serum or plasma albumin nereyda urement (mass/volume)Ordered By: Dr. Olvera on 08-12-2022 Albumin [Mass/Vol] 4.0 g/dL 3.2-5.0 [facility] Serum or plasma albumin/glob ulin mass ratioOrdered By: Dr. Olvera on 08-12-2022 Albumin/Globulin [Mass ratio] 1.1 {ratio} 0.9-2.4 [facility] Serum or plasma calcium nereyda urement (mass/volume)Ordered By: Dr. Olvera on 08-12-2022 Calcium [Mass/Vol] 9.0 mg/dL 8.5-10.1 [facility] Serum or plasma cholesterol in HDL measurement (mass/volume)Ordered By: Dr. Olvera on 08-12-2022 Cholesterol in HDL [Mass/Vol] 44 mg/dL >40 [facility] Comment on above: The drugs N-Acetylcy steine and Metamizole may falsely depress this assay. Reference Range HDL <40 mg/dL Low HDL Cholesterol HDL >or= 60 mg/dL High HDL Cholesterol Serum or plasma cholesterol in VLDL measurement (mass/volume)Ordered By: Dr. Olvera on 08-12-2022 Cholesterol in VLDL [Mass/Vol] 25 mg/dL 5-40 [facility] Serum or plasma creatinine m easurement (mass/volume)Ordered By: Dr. Olvera on 08-12-2022 Creatinine [Mass/Vol] 1.00 mg/dL 0.70-1.30 [facility] Comment on above: The validity of the calculated GFR & GFRAA in patients over 70 years has not been determined. Clinical correlation is essential. Serum or plasma low density lipoprotein (LDL) cholesterol measurement (mass/volume)Ordered By: Dr. Olvera on 08-12-2022 Cholesterol in LDL [Mass/Vol] 35 mg/dL 0-130 [facility] Serum or plasma urea nitroge n measurement (mass/volume)Ordered By: Dr. Olvera on 08-12-2022 Urea nitrogen [Mass/Vol] 17 mg/dL 7-18 [facility] Thin prep Papanicolaou smear with manual screeningOrdered By: Dr. Olvera on 08-12-2022 Thin prep Papanicolaou smear with manual screening 14 U/L 15-37 [facility] Thin prep Papanicolaou smear with manual screening 5 5-15 [facility] Thin prep Papanicolaou smear with manual screening 7.6 mg/L NO RANGE EST. [facility] Urine creatinine measurement (mass/volume)Ordered By: Dr. Olvera on 08-12-2022 Creatinine (U) [Mass/Vol] 106.00 mg/dL NO RANGE EST. [facility] Whole blood hemoglobin A1c/t otal hemoglobin ratio (mass fraction)Ordered By: Dr. Olvera on 08-12-2022 HbA1c (Bld) [Mass fraction] 6.3 % 3.8-5.6 [facility] Comment on above: Normal < 5.7 % Predi abetic 5.7 - 6.4 % Diabetic >or= 6.5 % Please note range changes. CNNURSEon 08-03-2020 [facility] Nurse Visit (FAMPWS) ---- ROM SINHA ([id number]) 1955 M Date Time Provider Department 08/03/20 9:[address] NURSE DAVIDE During your visit today, we recorded the following information about you: Yessy Patterson LPN 08/03/2020 9:01 AM Signed Patient presents for B-12 injection. Denies any problems at this time. Patient instructed on any SE of medication, verbalized understanding and agreed to proceed with treatment. Tolerated injection well. Yessy Patterson LPN Referring Provider: FIDEL GO III [[id number]] Allergies As of Date: 08/03/2020 (No Known [...] Status:Closed by YESSY PATTERSON LPN on 08/03/[address] [facility] ROM SINHA ([id number]) 1955 M Date Time Provider Department 06/26/20 1:[address] NURSE DAVIDE During your visit today, we recorded the following information about you: Yessy Patterson LPN 06/26/2020 1:37 PM Signed Patient presents for B-12 injection. Denies any problems at this time. Patient instructed on any SE of medication, verbalized understanding and agreed to proceed with treatment. Tolerated injection well. Yessy Patterson LPN Referring Provider: FIDEL GO III [[id number]] Allergies As of Date: 06/26/2020 (No Known [...] Status:Closed by YESSY PATTERSON LPN on 06/26/[address] [facility] 05-14-2020 [facility] Nurse Visit (FAMPWS) ---- ROM SINHA ([id number]) 1955 M Date Time Provider Department 05/14/20 9[facility] [facility] your visit today, we recorded the following information about you: Yessy Patterson LPN 05/14/2020 8:55 AM Signed Patient presents for B-12 injection. Denies any problems at this time. Patient instructed on any SE of medication, verbalized understanding and agreed to proceed with treatment. Tolerated injection well. Yessy Patterson LPN Referring Provider: FIDEL GO III [[id number]] Allergies As of Date: 05/14/2020 (No Known [...] by YESSY PATTERSON LPN on 05/14/[address] [facility] Vital Signs Date Time Vital Sign Value Performing Clinician Facility 06-09-2023 08:45-0500 Diastolic blood pressure 64 mm[Hg] Cody Graham MD Work Phone: [phone] [place] [address] 06-09-2023 08:45-0500 Heart rate 67 /min Cody Graham MD Work Phone: [phone] [place] [address] 06-09-2023 08:45-0500 Respiratory rate 14 /min Cody Graham MD Work Phone: [phone] [place] [address] 06-09-2023 08:45-0500 SaO2% (BldA) [Mass fraction] 96 % Cody Graham MD Work Phone: [phone])[phone] [place] [address] 06-09-2023 08:45-0500 Systolic blood pressure 130 mm[Hg] Cody Graham MD Work Phone: 6([phone] [place] [address] 06-09-2023 07:57-0500 Body temperature 98.2 [degF] Cody Graham MD Work Phone: [phone])[phone] [place] [address] 06-09-2023 06:29-0500 Body height 173 cm Cody Graham MD Work Phone: [phone] [address] 06-09-2023 06:29-0500 Body mass index (BMI) [Ratio] 32.51 kg/m2 Cody Graham MD Work Phone: [phone])[phone] [place] [address] 06-09-2023 06:29-0500 Body weight 97.3 kg Cody Graham MD Work Phone: [phone] [place] [address] 05-13-2023 10:53-0500 Body mass index (BMI) [Ratio] 34.46 kg/m2 Cody Graham MD Work Phone: [facility] 05-13-2023 10:53-0500 Body weight 99.79 kg Cody Graham MD Work Phone: [facility] 05-13-2023 10:53-0500 Respiratory rate 16 /min Cody Graham MD Work Phone: [facility] 04-22-2023 09:28-0500 Body height 170.2 cm Cody Graham MD Work Phone: [facility] 04-22-2023 09:28-0500 Body mass index (BMI) [Ratio] 35.24 kg/m2 Cody Graham MD Work Phone: [facility] 04-22-2023 09:28-0500 Body weight 102.06 kg Cody Graham MD Work Phone: [facility] 04-22-2023 09:28-0500 Respiratory rate 16 /min Cody Graham MD Work Phone: [facility] Encounters Encounter Date Encounter Type Care Provider Facility Start: 02-25-2025 [facility] Start: 07-11-2024 End: 07-11-[address] Carly Olvera DO Work Phone: [facility] Work Phone: Start: 07-11-2024 End: 07-11-[address] Carly Olvera DO -[facility] Start: 07-11-2024 End: 07-11-2024 ambulatory Carly Olvera Facility:[facility] Start: 03-14-2024 [facility] Start: 06-09-2023 End: 06-09-2023 Subsequent hospital visit by physician Cody Graham MD Work Phone: [facility] [place] Comment on above: Elevated PSA Start: 05-13-2023 End: 05-13-2023 ambulatory CODY GRAHAM [facility] Start: 05-13-2023 End: 05-13-2023 Office outpatient visit 25 minutes Cody Graham MD Work Phone: [facility] Comment on above: Elevated PSA; BPH without obstruction/lower urinary tract symptoms; Nocturia Start: 04-27-2023 End: 04-27-2023 Subsequent hospital visit by physician [facility] Comment on above: Elevated PSA Start: 04-27-2023 End: 04-27-[address] [facility] Start: 04-22-2023 End: 04-22-2023 ambulatory [facility] Start: 04-22-2023 End: 04-22-2023 Office outpatient new 45 minutes Cody Graham MD Work Phone: [facility] Comment on above: Elevated PSA (Primar y Dx); BPH without obstruction/lower urinary tract symptoms; Nocturia Start: 02-16-2023 End: 02-16-2023 ambulatory [facility] Work Phone: Start: 02-16-2023 End: 02-16-2023 Patient encounter [facility] Start: 08-12-2022 End: 08-12-2022 ambulatory [facility] Work Phone: Start: 08-12-2022 End: 08-12-2022 Patient encounter procedure [facility] Procedures Date Procedure Procedure Detail Performing Clinician [...] Screening for malign ant neoplasm of colon [facility] Start: 06-09-2026 Diabetes mellitus screening Diabetes Screening [facility] Start: 01-17-2026 DTaP/Tdap/Td Vaccine s (2 - Td or Tdap) DTaP/Tdap/Td Vaccines (2 - Td or Tdap) [facility] Start: 01-17-2026 DTaP/Tdap/Td Vaccine s (3 - Td or Tdap) DTaP/Tdap/Td Vaccines (3 - Td or Tdap) [facility] Start: 05-13-2023 End: 05-13-2023 Patient encounter procedure 05/13/2023 11:00 AM EST Office Visit [facility] [address] [id number] Cody Graham MD [address] [place] [address] [facility] Start: 04-27-2023 End: 04-27-2023 Patient encounter procedure 04/27/2023 9:15 AM EST Appointment [id number] [place] [address] [facility] Start: 04-22-2023 End: 04-22-2024 Creatinine [Mass/volume] in Serum or Plasma Creatinine, Serum Lab Routine Elevated PSA Expected: 04/22/2023 (Approximate), Expires: 04/22/2024 [facility] Work Phone: Comment on above: Expected: 04/22/2023 (Approximate), Expires: 04/22/2024 Start: 04-22-2023 End: 04-22-2024 MR Prostate MR prostate with nicki boundaries Imaging Routine Elevated PSA Expected: 04/22/2023 (Approximate), Expires: 04/22/2024 [facility] Service Area Work Phone: Comment on above: Expected: 04/22/2023 (Approximate), Expires: 04/22/2024 Start: 03-19-2023 COVID-19 Vaccine (5 - Moderna series) COVID-19 Vaccine (5 - Moderna series) [facility] Start: 03-19-2023 COVID-19 Vaccine () COVID-19 Vaccine () [facility] Start: 11-25-2022 Diabetes mellitus screening Diabetes Screening [facility] Start: 07-14-2020 Pneumococcal Vaccine : 65+ Years (2 - PCV) Pneumococcal Vaccine: 65+ Years (2 - PCV) [facility] Start: 10-27-2018 Zoster Vaccines (2 o f 2) Zoster Vaccines (2 of 2) [facility] Start: 10-27-2018 Zoster Vaccines (3 o f 3) Zoster Vaccines (3 of 3) [facility] Start: 2018 Abdominal aortic aneurysm screening Abdominal Aortic Aneurysm (AAA) Screening [facility] Start: 1971 Hepatitis C screening Hepatitis C Sc reening [facility] Start: 1955 Lipid panel Lipid Panel [facility] Start: 1955 Medicare Annual Wellness Visit Medicare Annual Wellness Visit (AWV) [facility] Start: 1955 Screening for malign ant neoplasm of colon [facility] MR Prostate MR prostate with nicki boundaries Imaging Routine Elevated PSA 04/27/2023 10:47 AM EST [facility] Service Area Work Phone: End: 06-09-2023 Pulse oximetry, spot Pulse oximetry, spot Respiratory Care Routine Once for 1 Occurrences starting 06/09/2023 until 06/09/2023 [facility] Service Area Work Phone: Comment on above: Once for 1 Occurrenc es starting 06/09/2023 until 06/09/2023 Surgical pathology study Surgical Pathology Exam Pathology and Cytology Timed Elevated PSA Release Upon Ordering for 1 Occurrences starting 06/09/2023 [facility] Work Phone: Comment on above: Release Upon Orderin g for 1 Occurrences starting 06/09/2023 Payers Date Payer Category Payer Self-pay [id number] 2017 Medicare MEDICARE MEDICAR E PART A AND B [id number] 2017-Present [address] [place] [address] [id number] 2017 Unknown JERMAINE SUPPLEMEN CIRA JERMAINE MEDICARE SELECT SUPPLEMENT [id number] 2017-Present [id number] [place] [address] [id number] 2017 Medicare [id number] 2017 Unknown [id number] 1955 Unknown [id number] 1955 Unknown [id number] 1955 Unknown [id number] Self-pay SELF PAY INSURANCE [id number] Unknown [facility] [id number] Unknown [id number] Unknown [id number] Unknown [id number] Unknown [id number] Social History Date Type Detail Facility Start: 09-07-2016 [facility] Start: 1955 Sex Assigned At Male [facility] Start: 04-22-2023 [facility] Never smoked tobacco [facility] Work Phone: Start: 04-22-2023 End: 05-13-2023 Tobacco use and exposure Smokeless tobacco non-user [facility] Work Phone: Start: 04-22-2023 End: 06-03-2023 History of Social function [facility] Work Phone: Start: 04-22-2023 End: 06-03-2023 Tobacco use panel [facility] Work Phone: Start: 1955 Sex Assigned At Not on file [facility] Work Phone: Start: 04-17-2023 End: 06-09-2023 Exposure to SARS-CoV-2 (event) Not sure [facility] Start: 09-07-2016 End: 05-13-2023 Tobacco smoking status NHIS Ex-smoker [facility] Work Phone: Start: 04-20-1976 End: 04-20-1980 History of tobacco use Current smoker [facility] Work Phone: Start: 04-20-1976 End: 04-20-1980 History of tobacco use Cigarette Smoker [facility] Work Phone: History of tobacco use Pipe Smoker [facility] Work Phone: Start: 05-13-2023 End: 06-03-2023 Alcohol intake Current drinker of alcohol (finding) [facility] Work Phone: Start: 05-13-2023 Alcohol Comment Less than once a mon th [facility] Work Phone: Start: 07-16-2024 Sex Male (finding) [facility] Clinical Notes 05-14-2020 to 06-09-2023 Discharge InstructionsOp Note - Cody Graham MD - 06/09/2023 7:47 AM ESTOp Note - Cody Graham MD - 06/09/2023 7:47 AM ESTPreprocedure Instructions - Lindsey Tucker RN - 06/03/2023 8:16 AM EST Note Date & Type Note Facility 06-09-2023 Hospital Discharg e instructions Khushi Sherman RN - 06/09/2023 8:31 AM EST See printed instructions. documented in this encounter [facility] Work Phone: 06-09-2023 Note Formatting of this n ote is different from the original. Biopsy Prostate, Ultrasonography Transrectal Prostate, Biopsy Prostate with Navigation Operative Note Date: 06/09/2023 OR Location: [facility] OR Name: Rom Sinha, : 1955, Age: 68 y.o., , Sex: male Diagnosis Pre-op Diagnosis * Elevated PSA [R97.20] Post-op Diagnosis * Elevated PSA [R97.20] Procedures Biopsy Prostate 68234 - NM PROSTATE NEEDLE BIOPSY ANY APPROACH Ultrasonography Transrectal Prostate 30879 - CHG US TRANSRECTAL Biopsy Prostate with Navigation 82041 - CHG US GUIDANCE NEEDLE PLACEMENT IMG S&I Surgeons * Cody Graham - Primary Resident/Fellow/Other Operations/Dispatch: Surgeon(s) and Role: Procedure Summary Anesthesia: Monitor [...] EXAM Cody Graham MD 06/09/2023 0751 Staff: Melter Supervisor Oxygen Furnace: Kd Shay RN; Jamila De La Vega [...] scrubbed for the entire procedure. Cody Graham [facility] Work Phone: 06-09-2023 Miscellaneous Notes Biopsy Prostate, Ultrasonography Transrectal Prostate, Biopsy Prostate with Navigation Operative Note Date: 06/09/2023 OR Location: [facility] OR Name: Rom Sinha, : 1955, Age: 68 y.o., , Sex: male Diagnosis Pre-op Diagnosis * Elevated PSA [R97.20] Post-op Diagnosis * Elevated PSA [R97.20] Procedures Biopsy Prostate 27182 - NM PROSTATE NEEDLE BIOPSY ANY APPROACH Ultrasonography Transrectal Prostate 56656 - CHG US TRANSRECTAL Biopsy Prostate with Navigation 61699 - CHG US GUIDANCE NEEDLE PLACEMENT IMG S&I Surgeons * Cody Graham - Primary Resident/Fellow/Other Operations/Dispatch: Surgeon(s) and Role: Procedure Summary Anesthesia: Monitor [...] RIGHT SURGICAL PATHOLOGY EXAM Cody Graham MD 06/09/2023749 2 : AREA OF INTEREST#1 Tissue PROSTATE BIOPSY TARGETED NICKI SURGICAL PATHOLOGY EXAM Cody Graham MD 06/09/2023750 3 : PROSTATE NEEDLE BIOPSY LEFT Tissue PROSTATE NEEDLE BIOPSY LEFT SURGICAL PATHOLOGY EXAM Cody Graham MD 06/09/2023750 Staff: Melter Supervisor Oxygen Furnace: Kd Shay RN; Jamila De La Vega [...] drink after midnight Additional Instructions: 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 F/U with MRI guided Bx [facility] Work Phone: 06-09-2023 History and physical [...] MRI guided Bx documented in this encounter [facility] Work Phone: 06-03-2023 Note Formatting of this n ote is different from the original. No outpatient medications have been marked as taking for the 06/09/23 encounter (Hospital Encounter). NPO Instructions: Nothing to eat or drink after midnight Additional Instructions: Will need seasonal delivery driver home, will receive call day before surgery with arrival time [facility] Work Phone: 05-13-2023 History of Presen [...] MRI guided Bx documented in this encounter [facility] Work Phone: 04-22-2023 History of Presen [...] Asymmetric, no nodules but slightly firmer Right Othello Seminal Vesicals: No mass. Sphincter tone: normal [...] F/U after MRI documented in this encounter [facility] Work Phone: 10-03-2020 Note HNO ID: [id number] Author: Rudy Webb Ma Service: ? Author [...] Webb Ma October 03, 2020 3:[address] [facility] 10-03-2020 Note HNO ID: [id number] Author: Rudy Webb Ma Service: ? Author [...] future healthcare decisions with a power of erisa attorney, living will, or advance directives? No. Are you interested in a follow-up phone call or visit with a doctor for more information about planning for future health care decisions? No Referrals: N/A Message Sent to Practice: NO Navigation Signature: Rudy Webb Ma October 03, 2020 12:[address] [facility] 10-03-2020 Note Patient Outreach (NE TNAV) ROM SINHA ([id number]) 1955 Date Time Provider Department 10/03/20 RUDY WEBB (MARCELO) NETNAV During your visit today, we recorded the following information about you: Rudy Webb Ma 10/03/2020 2:24 PM Addendum POPULATION HEALTH NAVIGATION OUTREACH Action/ Left message for patient to call back [...] future healthcare decisions with a power of erisa attorney, living will, or advance directives? No. [...] 02:24 PM Modules accepted: Orders Rudy Webb Ma 10/09/2020 2:37 PM Addendum POPULATION HEALTH NAVIGATION OUTREACH Action/FY Patient returned call to let me know [...] Status:Closed by RUDY WEBB MA on 10/03/[address] [facility] 08-03-2020 Note HNO ID: [id number] Author: Yessy Patterson LPN Service: ? Author Type: ? Type: Progress Notes Filed: 08/03/2020 9:01 AM Note Text: Patient presents for B-12 injection. Denies any problems at this time. Patient instructed on any SE of medication, verbalized understanding and agreed to proceed with treatment. Tolerated injection well. Yessy Patterson LPN [facility] 06-26-2020 Note HNO ID: [id number] Author: Yessy Patterson LPN Service: ? Author Type: ? Type: Progress Notes Filed: 06/26/2020 1:37 PM Note Text: Patient presents for B-12 injection. Denies any problems at this time. Patient instructed on any SE of medication, verbalized understanding and agreed to proceed with treatment. Tolerated injection well. Yessy Patterson LPN [facility] 05-14-2020 Note HNO ID: [id number] Author: Yessy Patterson LPN Service: ? Author Type: ? Type: Progress Notes Filed: 05/14/2020 8:55 AM Note Text: Patient presents for B-12 injection. Denies any problems at this time. Patient instructed on any SE of medication, verbalized understanding and agreed to proceed with treatment. Tolerated injection well. Yessy Patterson LPN [facility] Evaluation note No assessment inform ation available [facility] Work Phone: Evaluation note Diagnosis Elevated PSA- Primary Elevated prostate specific antigen (PSA) BPH without obstruction/lower urinary tract symptoms Nocturia documented in this encounter [facility] Work Phone: Evaluation note* Diagnosis Elevated PSA Elevated prostate specific antigen (PSA) documented in this encounter [facility] Work Phone: Evaluation note* Diagnosis Elevated PSA Elevated prostate specific antigen (PSA) BPH without obstruction/lower urinary tract symptoms Nocturia documented in this encounter [facility] Work Phone: Evaluation note* Diagnosis Elevated PSA- Primary Elevated prostate specific antigen (PSA) documented in this encounter [facility] Work Phone: Reason for referral (narrative)No reason for referral information [facility] Work Phone: Summary Purpose Family History No Family History Records FoundNo Family History Records FoundNo Family History Records FoundNo Family History Records Found Advance Directives No Advanced Directives Records Found Advance Directive Response Recorded Date/ Time Living Will No September 07, 2016 6 :57pm Power of Chlorine Cells Operator No September 07, 2016 6:57pm Documents on File Type Date Recorded 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 [facility] Power of Atty 06/09/2023 [facility] SPECIALIST Latest Code Status on File Code Status Date Activated Date Inactivated Comments Full Code 06/09/2023 6:44 AM Question Answer Comments Plan of Care: Code Status Discussion Completed Decision Maker: Patient Reason for Referral Specialty Diagnoses / Procedures Referred By Jaziel t Referred To Contact Radiology Diagnoses Elevated PSA Procedures MR prostate with nicki boundaries Cody Graham MD [address] [place] [address] Referral ID Status Reason Start Date Expiration Date Visits Requested Visits Authorized [id number] Authorized Perform Procedure 04/22/2023 04/21/2024 1 1 Additional Source Comments (unrecognized sect ion and content) No Status Records FoundNo Status Records FoundNo Status Records FoundNo Status Records Found INFORMATION SOURCE (unrecogn ized section and content) DATE CREATED AUTHOR 05/12/[address] [facility] DATE CREATED AUTHOR AUTHOR'S ORGANIZ ATION 05/16/2023 [facility] DATE CREATED AUTHOR AUTHOR'S ORGANIZ ATION 01/10/2024 [facility] DATE CREATED AUTHOR AUTHOR'S ORGANIZ ATION 03/01/2025 [facility] Care Teams (unrecognized sec tion and content) Team Status: Active Member Role Status Dates Dr. Fidel Go III, MD Family Provider Active Dr. Carly Olvera DO Primary Care Provider Active Team Status: Inactive Member Role Status Dates Dr. Carly Olvera DO Primary Care Provide r, Attending Provider, Referring Provider Active Manager Logistic Relationship Specialty Start Date End Date Carly Olvera DO [address] [place] [phone] PCP - General Family Medicine 06/09/23 Team [...] content) Specialty Diagnoses / Procedures Referred By Contac t Referred To Contact Radiology Diagnoses Elevated PSA Procedures MR prostate with nicki boundaries Cody Graham MD [facility] [place] [place] [place] [address] Referral ID Status Reason Start Date Expiration Date Visits Requested Visits Authorized [id number] Authorized Perform Procedure 04/22/2023 04/21/2024 1 1 Reason Comments MRI results Specialty Diagnoses / Procedures Referred By Contac t Referred To Contact Diagnoses Elevated PSA Elevated PSA [R97.20] Procedures NM PROSTATE NEEDLE BIOPSY ANY APPROACH CHG US TRANSRECTAL CHG US GUIDANCE NEEDLE PLACEMENT IMG S&I Biopsy Prostate Ultrasonography Transrectal Prostate Biopsy Prostate with Navigation Cody Graham MD [address] [place] [address] [address] Referral ID Status Reason Start Date Expiration Date Visits Re quested Visits Authorized [id number] 1 1 Scheduled Active and Recently Administ ered Medications (unrecognized section and content) Medication Order 06/07/2023 06/08/2023 06/09/2023 dexAMETHasone (Decadron) injection 5 mg (COMPLETED) 5 mg, intravenous, Once, On Thu06/09/23 at 0730, For 1 dose, Preprocedure 0728 [...] BE BASED ON THE PRIMARY CLINICAL RECORDS. [employer] [facility]. provides no warranty or guarantee of the accuracy or completeness of information in this document.
[2025-04-21 23:07] LABS: Egg, Whole <0.10 kU/L (Class 0); Mussels <0.10 kU/L (Class 0)
== END | disposition home or self-care (01) ==
LOC: BFHLAB 13:25
PROVIDERS: PCP Family Medicine; Visit Provider Family Medicine
DX: T78.00XA Anaphylactic reaction due to unspecified food, initial encounter (principal)
CPT/HCPCS: 36415; 86003; 86005